=== PATIENT | male | born 1950 | race Caucasian/White ===

== ENCOUNTER 2020-10-27 06:32 | Observation (INO) ==
--- NOTE | 2020-10-27 07:10 | Emergency Department Note ---
History of Present Illness General Chief complaint: Dizziness Stated complaint: LIGHTHEADED,DIZZY, Time Seen by Provider: 10/27/20 06:44 Source: patient History of Present Illness Provider complaint: Dizziness Onset (ago): hour(s) Location: head Pain Consistency: + constant and + other (Improving) Maximum Pain Intensity: 4 Quality: + other (Feels like the room is spinning and occultly walking) Relieved By: + none Associated symptoms: no chest pain, no cough, no fever/chills, no headaches, no nausea/vomiting and no shortness of breath This is a 70-year-old male who presents with dizziness upon awakening this morning at 6 AM. The patient states that he had no symptoms last night when he went to bed. He describes his dizziness as initially lightheadedness but also feeling like the room is spinning. He also states he has had difficulty walking and feels off balance. He feels like he is drunk and did not drink any alcohol. He does state that he is on hydrocodone for pain after his nerve stimulator implantation. He does use THC but has been on it for months for chronic pain. No modifying factors. No associated headache or vomiting. He denies any difficulty with speech or swallowing or any sudden change in his vision or hearing. He has had no tinnitus. He denies fever, cough or cold symptoms, chest discomfort or pain, shortness of breath, abdominal pain, vomiting, diarrhea or urinary symptoms. He denies any numbness or weakness to one side of his body. 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 Home Medications Medication Instructions Recorded Confirmed Type levothyroxine [Synthroid] 200 mcg PO DAILYBB 01/10/18 10/27/20 History lisinopril 20 mg PO QAM 01/10/18 10/27/20 History duloxetine [Cymbalta] See Rx Instructions .ROUTE .COMPLEX 04/16/18 10/27/20 History propranolol 80 mg capsule,24 80 mg PO QAM 07/18/19 10/27/20 History hr,extended release HEEL LIFTS See Rx Instructions .ROUTE 05/07/20 10/22/20 Rx .COMPLEX #3 ea anastrozole [Arimidex] 1 mg PO HS 10/02/20 10/27/20 History rosuvastatin 40 mg PO QAM 10/02/20 10/27/20 History Eliquis 5 mg PO BID 10/22/20 10/27/20 History hydrocodone 5 mg-acetaminophen 325 1 tab PO Q6H #10 tab 10/22/20 10/27/20 Rx mg tablet Grassroots Thc 10mg Tablets 10 mg PO UD 10/27/20 10/27/20 History baclofen 10 mg PO TID 10/27/20 10/27/20 History ciclopirox 1 applic TOPICAL Q2D 10/27/20 10/27/20 History ibuprofen 200 mg PO Q6H PRN 10/27/20 10/27/20 History lorazepam 0.5 mg PO BID PRN 10/27/20 10/27/20 History Allergies Allergy/AdvReac Type Severity Reaction Status Date / Time Cephalosporins Allergy Rash Verified 10/27/20 07:53 levofloxacin Allergy Rash Verified 10/27/20 07:53 Past Med/Surg History Medical History Anxiety Asthma No symptoms x 15 years - well controlled- no inhalers needed Atrial fibrillation dx 2 years ago; on eliquis; follows with Dr. Gutierres Cancer Skin ca - s/p removal Chronic back pain Per PCP records= leg length discrepancy is a contributing factor (heel lift therapy) and somatic dysfunction (OMT done 10/02/20 at PCP office) Degenerative disc disease, lumbar Depression Essential tremor In hands -reason for propranolol Hyperlipidemia Hypertension Hypothyroidism Lumbar radiculopathy Malignant neoplasm of prostate s/p radical prostatectomy 2009 - no chemo or XRT On anticoagulant therapy Osteoarthritis Sacroiliitis Sleep apnea CPAP Surgical History Fusion of spine C4-C7 - limited ROM side to side and with extension History of appendectomy History of cataract surgery History of herniorrhaphy History of penile implant History of prostatectomy History of toe surgery BL great toe S/P insertion of spinal cord stimulator trial; removed Family History Father Prostate cancer Brother Prostate cancer Diabetes Other No family history of adverse response to anesthesia Denies family history of Ovarian cancer Myocardial infarction Breast cancer Colorectal cancer Social History Smoking Status: Never smoker Tobacco Type: Cigarettes Age Started Using Tobacco: 10; Age Quit Using Tobacco: 33; packs per day: 1; Second Hand Exposure: No; Hx Alcohol Use: No (Stopped two months ago - was drinking wine daily ) Hx Substance Use: No Preferred Language: Liberian Communication Ability: Effective Visual Impairment: No Limitations Hearing Ability: Normal Panel Builder Required: No Beliefs That Will Affect Care: Protestant Protestant Beliefs: Jain marital status: Current Living Situation: Spouse current occupational status: retired Other Information That Helps Us Care for You: No Feels Safe at Home: Yes Safety Concerns: Feels Safe At This Time Childhood Exposure to Second-Hand Smoke: Yes Dental Care, Regularly: Yes Physical Activity Frequency: 3-4 Times per Week Seatbelt Use: always Sunscreen Use: Yes Assistive Devices: CPAP and Glasses Review of Systems See HPI for pertinent positives & negatives. and A total of 10 systems reviewed and were otherwise negative Physical Exam Vital Signs Vital Signs - 24 hr 10/27/20 06:36 10/27/20 07:20 10/27/20 07:30 Temperature 36 C L Temperature Source Temporal Artery Scan Pulse Rate 66 67 66 Respiratory Rate 18 23 20 Respiratory Effort / Characteristics Non-Labored Spontaneous Respiratory Depth Normal Blood Pressure 148/93 H 144/89 H 133/85 Blood Pressure Mean 111 107 101 Pulse Oximetry 98 96 95 Oxygen Delivery Method Room Air Sepsis Recent Fever Within 48 Hours No Sepsis New/Unexplained Change in Mental Status N/A Sepsis Action Taken by Nursing No Action Required 10/27/20 08:00 10/27/20 08:31 10/27/20 09:00 Temperature Temperature Source Pulse Rate 65 63 64 Respiratory Rate 23 18 18 Respiratory Effort / Characteristics Respiratory Depth Blood Pressure 135/88 149/91 H 141/89 H Blood Pressure Mean 103 110 106 Pulse Oximetry 98 97 98 Oxygen Delivery Method Sepsis Recent Fever Within 48 Hours Sepsis New/Unexplained Change in Mental Status Sepsis Action Taken by Nursing 10/27/20 09:30 10/27/20 10:00 10/27/20 10:30 Temperature Temperature Source Pulse Rate 64 60 63 Respiratory Rate 17 15 18 Respiratory Effort / Characteristics Respiratory Depth Blood Pressure 144/86 H 133/83 147/97 H Blood Pressure Mean 105 99 113 Pulse Oximetry 97 96 99 Oxygen Delivery Method Sepsis Recent Fever Within 48 Hours Sepsis New/Unexplained Change in Mental Status Sepsis Action Taken by Nursing Constitutional: Vital signs reviewed. Eyes: Pupils are equal round reactive to light. Conjunctiva are noninjected. ENT: Pharynx is clear without erythema or exudate. Mucous membranes are moist. Neck supple without meningeal signs. Respiratory: Clear to auscultation bilaterally. Breath sounds are equal bilaterally. Cardiovascular: Regular rate and rhythm. No rubs or gallops. GI: Soft, nondistended and nontender. Bowel sounds are present. Musculoskeletal: No peripheral edema. No lower extremity tenderness. Integumentary: No cyanosis. or jaundice. Neurologic: The patient is awake and alert. Cranial nerves II-XII are intact. Motor is 5 out of 5 all extremities. Sensation is intact to light touch all extremities. Normal speech. No pronator drift. No limb ataxia. No dysdiadochokinesis Psychiatric: Normal affect. Not anxious appearing. Course Administered Medications Apixaban (Apixaban 5 Mg Tablet) 5 mg PO BID [facility] Stop: 11/26/20 11:33 Last Admin: 10/27/20 12:26 Dose: Not Given Documented by: [id number] Duloxetine HCl (Duloxetine Hcl 30 Mg Cap) [facility] Stop: 11/26/20 11:33 Last Admin: 10/27/20 12:26 Dose: Not Given Documented by: [id number] Rosuvastatin Calcium (Rosuvastatin Calcium 20 Mg Tab) 40 mg PO QAM [facility] Stop: 11/26/20 11:33 Last Admin: 10/27/20 12:26 Dose: Not Given Documented by: [id number] Discontinued Medications Ioversol (Optiray 350 500ml) 117 ml IV ONCE ONE Stop: 10/27/20 07:19 Last Admin: 10/27/20 07:18 Dose: 117 ml Documented by: [id number] Medical Decision Making Differential Diagnosis Ataxia, CVA, TIA, intracranial mass, intracranial hemorrhage, BPPV, labyrinthitis Medical Records Attestation: I reviewed the patient's medical records. I did perform a limited focused review of portions of the patient's old chart on the electronic medical record. The patient had a nerve stimulator implanted on the eighth of this month. Home Medications Current Medication List: was personally reviewed by me Laboratory Data Attestation: I reviewed the patient's lab results. Result diagrams: 10/27/20 07:05 10/27/20 07:05 Lab Results 06/10/27/20 10/27/20 Range/Units 07:05 07:05 07:05 WBC 5.42 (4.8-10.8) K/uL RBC 4.80 (4.7-6.1) M/uL Hgb 14.9 (14.0-18.0) g/dL Hct 43.0 (42-52) % MCV 89.6 (80-100) fL MCH 31.0 (25-34) pg MCHC 34.7 (32-36) g/dL RDW Std Deviation 40.6 (36.4-46.3) fL RDW Coeff of Edi 12.4 (11.5-14.5) % Plt Count 147 (130-400) K/uL MPV 9.6 (7.4-10.4) fL Immature Gran % (Auto) 0.2 % Neut % (Auto) 62.9 % Lymph % (Auto) 20.1 % Lanier % (Auto) 9.8 % Eos % (Auto) 6.3 % Baso % (Auto) 0.7 % Neut # (Auto) 3.41 (1.4-6.5) K/uL Lymph # (Auto) 1.09 L (1.2-3.4) K/uL Lanier # (Auto) 0.53 (0.11-0.59) K/uL Eos # (Auto) 0.34 (0-0.5) K/uL Baso # (Auto) 0.04 (0-0.2) K/uL Immature Gran # (Auto) 0.01 (0.00-0.02) K/uL PT 10.3 (9.0-12.0) Seconds INR 1.0 (0.9-1.1) APTT 28.7 (21.0-31.0) Seconds PTT Ratio 1.1 Sodium (136-145) mmol/L Potassium (3.5-5.1) mmol/L Chloride (98-107) mmol/L Carbon Dioxide (21-32) mmol/L Anion Gap (3-11) BUN (7-18) mg/dl Creatinine (0.6-1.4) mg/dl Est Cr Clr Drug Dosing ml/min Est GFR ( Amer) ml/min Est GFR (Non-Af Amer) ml/min BUN/Creatinine Ratio (10-20) Glucose (70-99) mg/dl POC Glucose (70-99) mg/dl Calcium (8.5-10.1) mg/dl Magnesium (1.8-2.4) mg/dl Total Bilirubin (0.2-1) mg/dl AST (15-37) U/L ALT (12-78) U/L Alkaline Phosphatase (45-117) U/L Troponin I (0-0.045) ng/ml Total Protein (6.4-8.2) gm/dl Albumin (3.4-5.0) gm/dl Globulin (2.5-4.0) gm/dl Albumin/Globulin Ratio (0.9-2) COVID-19 Eval Order SARS-CoV-2 (PCR) (Negative) Blood Type A Negative Antibody Screen NEGATIVE 10/27/20 10/27/20 10/27/20 Range/Units 07:05 07:18 07:34 WBC (4.8-10.8) K/uL RBC (4.7-6.1) M/uL Hgb (14.0-18.0) g/dL Hct (42-52) % MCV (80-100) fL MCH (25-34) pg MCHC (32-36) g/dL RDW Std Deviation (36.4-46.3) fL RDW Coeff of Edi (11.5-14.5) % Plt Count (130-400) K/uL MPV (7.4-10.4) fL Immature Gran % (Auto) % Neut % (Auto) % Lymph % (Auto) % Lanier % (Auto) % Eos % (Auto) % Baso % (Auto) % Neut # (Auto) (1.4-6.5) K/uL Lymph # (Auto) (1.2-3.4) K/uL Lanier # (Auto) (0.11-0.59) K/uL Eos # (Auto) (0-0.5) K/uL Baso # (Auto) (0-0.2) K/uL Immature Gran # (Auto) (0.00-0.02) K/uL PT (9.0-12.0) Seconds INR (0.9-1.1) APTT (21.0-31.0) Seconds PTT Ratio Sodium 140 (136-145) mmol/L Potassium 4.2 (3.5-5.1) mmol/L Chloride 109 H (98-107) mmol/L Carbon Dioxide 25 (21-32) mmol/L Anion Gap 6.0 (3-11) BUN 21 H (7-18) mg/dl Creatinine 1.02 (0.6-1.4) mg/dl Est Cr Clr Drug Dosing 84.9 ml/min Est GFR ( Amer) 84.7 ml/min Est GFR (Non-Af Amer) 73.1 ml/min BUN/Creatinine Ratio 20.6 H (10-20) Glucose 137 H (70-99) mg/dl POC Glucose 127 H (70-99) mg/dl Calcium 9.1 (8.5-10.1) mg/dl Magnesium 2.3 (1.8-2.4) mg/dl Total Bilirubin 0.4 (0.2-1) mg/dl AST 16 (15-37) U/L ALT 31 (12-78) U/L Alkaline Phosphatase 71 (45-117) U/L Troponin I < 0.015 (0-0.045) ng/ml Total Protein 6.7 (6.4-8.2) gm/dl Albumin 3.4 (3.4-5.0) gm/dl Globulin 3.3 (2.5-4.0) gm/dl Albumin/Globulin Ratio 1.0 (0.9-2) COVID-19 Eval Order Covid19 at [facility] SARS-CoV-2 (PCR) (Negative) Blood Type Antibody Screen 10/27/20 Range/Units 07:34 WBC (4.8-10.8) K/uL RBC (4.7-6.1) M/uL Hgb (14.0-18.0) g/dL Hct (42-52) % MCV (80-100) fL MCH (25-34) pg MCHC (32-36) g/dL RDW Std Deviation (36.4-46.3) fL RDW Coeff of Edi (11.5-14.5) % Plt Count (130-400) K/uL MPV (7.4-10.4) fL Immature Gran % (Auto) % Neut % (Auto) % Lymph % (Auto) % Lanier % (Auto) % Eos % (Auto) % Baso % (Auto) % Neut # (Auto) (1.4-6.5) K/uL Lymph # (Auto) (1.2-3.4) K/uL Lanier # (Auto) (0.11-0.59) K/uL Eos # (Auto) (0-0.5) K/uL Baso # (Auto) (0-0.2) K/uL Immature Gran # (Auto) (0.00-0.02) K/uL PT (9.0-12.0) Seconds INR (0.9-1.1) APTT (21.0-31.0) Seconds PTT Ratio Sodium (136-145) mmol/L Potassium (3.5-5.1) mmol/L Chloride (98-107) mmol/L Carbon Dioxide (21-32) mmol/L Anion Gap (3-11) BUN (7-18) mg/dl Creatinine (0.6-1.4) mg/dl Est Cr Clr Drug Dosing ml/min Est GFR ( Amer) ml/min Est GFR (Non-Af Amer) ml/min BUN/Creatinine Ratio (10-20) Glucose (70-99) mg/dl POC Glucose (70-99) mg/dl Calcium (8.5-10.1) mg/dl Magnesium (1.8-2.4) mg/dl Total Bilirubin (0.2-1) mg/dl AST (15-37) U/L ALT (12-78) U/L Alkaline Phosphatase (45-117) U/L Troponin I (0-0.045) ng/ml Total Protein (6.4-8.2) gm/dl Albumin (3.4-5.0) gm/dl Globulin (2.5-4.0) gm/dl Albumin/Globulin Ratio (0.9-2) COVID-19 Eval Order SARS-CoV-2 (PCR) NEGATIVE (Negative) Blood Type Antibody Screen Imaging Data Radiologist's Impression: Chest X-Ray 10/27/20 06:59 XR chest 1V portable CLINICAL HISTORY: Stroke Like Symptoms COMPARISON STUDY: Chest radiograph April 15, 2018. FINDINGS: Lung volumes are normal. Intrathecal catheter is noted. Postoperative findings within the cervical spine are incidentally noted. Cardiomegaly is unch anged. There is no evidence for pulmonary edema. There is pulmonary vascular congestion. This is unchanged. Mild bibasilar opacities favor atelectasis. IMPRESSION: 1. No change in cardiomegaly with pulmonary vascular congestion. 1. Mild bibasilar opacities which favor atelectasis. ACT 112: Negative or not required by law. Electronically signed by: Venkata Gilliam M.D. 10/27/2020 7:[address] 10/27/20 06:59 CT head/brain wo con CLINICAL HISTORY: vertigo/ataxia eval for stroke COMPARISON STUDY: No previous studies for comparison. TECHNIQUE: Axial CT of the brain is performed from the vertex to the skull base. IV contrast was not administered for this examination. A dose lowering technique was utilized adhering to the principles of ALARA. CT DOSE: 687.98 mGy.cm FINDINGS: No intra or extra-axial mass lesions are visualized. There is no CT evidence of acute cortical infarction. There is no evidence of midline shift. There is no acute hemorrhage. No calvarial fractures are visualized. There are mild white matter hypodensities likely on a small vessel basis. There is no evidence of pathologic ventricular dilatation. There is no evidence of acute sinusitis IMPRESSION: No acute intracranial findings ACT 112: Negative or not required by law. Electronically signed by: Matti Franklin M.D. 10/27/2020 7:15 AM Head CTA 10/27/20 06:59 CTA ANGIOGRAPHY OF THE HEAD CLINICAL HISTORY: Stroke Like Symptoms COMPARISON STUDY: No previous studies for comparison. TECHNIQUE: Helical axial images of the head were obtained following uneventful intravenous administration of 117 cc of Optiray. Sagittal and coronal reconstructions were viewed as well as maximal intensity projections on an independent 3-D workstation. Automated exposure control was utilized for the enid. A dose lowering technique was utilized adhering to the principles of ALARA. FINDINGS: No acute intracranial hemorrhage, midline shift or mass effect is present. Ventricular system is unremarkable. Basal cisterns are patent. There are no extra axial collections. The bilateral M1, M2, A1 and A2 segments are patent. There is mild asymmetric narrowing of the right middle cerebral artery. No central vessel occlusion is identified. Posterior circulation is intact. The re is no intracranial aneurysm or dissection. IMPRESSION: 1. No intracranial aneurysm. No central vessel occlusion. 2. Mild stenosis of the right middle cerebral artery. ACT 112: Negative or not required by law. Electronically signed by: Venkata Gilliam M.D. 10/27/2020 7:28 AM Neck CTA 10/27/20 06:59 CT ANGIOGRAPHY OF THE NECK WITH CONTRAST CLINICAL HISTORY: Stroke Like Symptoms COMPARISON STUDY: No previous studies for comparison. Technique: CT angiography of the carotid and vertebral arteries was obtained using Optiray and 3D reconstruction on an independent workstation. NASCET criteria was utilized. Automated exposure control was utilized for the study. A dose lowering technique was utilized adhering to the principles of ALARA. CT DOSE: 721.87 mGy.cm Findings: Lung apices are clear. There is no cervical lymphadenopathy. Extensive postoperative findings within the cervical spine are noted. There is no acute cervical spine fracture. The bilateral common carotid and cervical internal carotid arteries are patent without stenosis. There is mild plaque within the left carotid bifurcation. There is suspected stenosis at the origin the bilateral vertebral arteries which is suboptimally assessed on this examination due to artifact. There is no dissection within the neck. The origins of the bilateral vertebral IMPRESSION: 1. No stenosis within the bilateral common carotid or cervical internal carotid arteries. 2. Suspected stenoses at the origins of the bilateral vertebral arteries which are suboptimally assessed on this exam due to artifact. No dissection. ACT 112: Negative or not required by law. Electronically signed by: Venkata Gilliam M.D. 10/27/2020 7:35 AM ECG Data Attestation: I personally reviewed and interpreted this ECG as follows: Indication: + other (Strokelike symptoms) Rate (beats per minute): 64 Rhythm: + normal sinus ECG Findings: + Other (Limited interpretation due to artifact from nerve stimulator); no PVCs MDM Narrative I did evaluate the patient as noted above. The patient is presenting with ataxia and vertigo starting this morning at 6 AM. He has no other symptoms. He is neurologically intact although he does have ataxia when trying to walk. He is not an IV TPA candidate as he woke up with the symptoms at 6 AM. His last known well was last night. I did call a stroke alert. IV access was established. I did order a CT of the head and CT angiogram of the head neck. I did review the images myself as well as the radiology report as described above. There is no evidence of acute stroke. He does have suspected stenosis of the origins of the bilateral vertebral arteries. There is also mild stenosis of the right middle cerebral artery. I did place an order for continuous cardiac monitoring. The monitor showed Normal sinus rhythm at a rate of 63 bpm. I did order and personally review the patient's 12-lead EKG as described above. He has no obvious ischemic changes but there is significant artifact from his neurostimulator. The patient does not have his remote with him and so we could not turn off the stimulator. I did order and personally reviewed the images of the patient's chest x-ray as described above. He has mild bibasilar opacities favoring atelectasis. He denies any cough or cold symptoms. I did order and review the patient's blood work as noted in the electronic medical record. CBC is unremarkable. Electrolytes, troponin and LFTs are unremarkable. I did reassess patient. He states he feels better but still has dizziness and disequilibrium. I did recommend hospitalization for MRI of the brain and further care and evaluation. I did discuss the case with the hospitalist and keycase assembler. The screening Covid test is negative. Impression & Plan Acute ataxia, Vertigo, Vertebral artery stenosis, Anticoagulated Discharge Plan Visit Data Chief Complaint: Dizziness Stated Complaint: LIGHTHEADED,DIZZY, ED Provider: Benji Barrett Discharge Problem: Acute ataxia, Vertigo, Vertebral artery stenosis, Anticoagulated Patient Disposition: Admitted As Inpatient Discharge Instructions Interventions: ED Discharge Assessment Last Done: 10/27/20 11:03 Discharge Problem: Vertebral artery stenosis Qualifiers: Laterality: bilateral Qualified Code(s): I65.03 - Occlusion and stenosis of bilateral vertebral arteries
--- NOTE | 2020-10-27 07:16 | CT Scan Report ---
CT head/brain wo con CLINICAL HISTORY: vertigo/ataxia eval for stroke COMPARISON STUDY: No previous studies for comparison. TECHNIQUE: Axial CT of the brain is performed from the vertex to the skull base. IV contrast was not administered for this examination. A dose lowering technique was utilized adhering to the principles of ALARA. CT DOSE: 687.98 mGy.cm FINDINGS: No intra or extra-axial mass lesions are visualized. There is no CT evidence of acute cortical infarc tion. There is no evidence of midline shift. There is no acute hemorrhage. No calvarial fractures ar e visualized. There are mild white matter hypodensities likely on a small vessel basis. There is no evidence of pathologic ventricular dilatation. There is no evidence of acute sinusitis IMPRESSION: No acute intracranial findings ACT 112: Negative or not required by law. Electronically signed by: Matti Franklin M.D. 10/27/2020 7:15 AM
[2020-10-27 07:18] LABS: Basophils # (auto) 0.04 K/uL (0-0.2); Basophils % (auto) 0.7 %; Eosinophils # (auto) 0.34 K/uL (0-0.5); Eosinophils % (auto) 6.3 %; Hemoglobin 14.9 g/dL (14.0-18.0); Immature Granulocytes # (auto) 0.01 K/uL (0.00-0.02); Immature Granulocytes % (auto) 0.2 %; Lymphocytes # (auto) 1.09 K/uL (1.2-3.4); Lymphocytes % (auto) 20.1 %; Mean Corpuscular Hgb Conc 34.7 g/dL (32-36); Mean Corpuscular Volume 89.6 fL (80-100); Mean Platelet Volume 9.6 fL (7.4-10.4); Monocytes # (auto) 0.53 K/uL (0.11-0.59); Monocytes % (auto) 9.8 %; Neutrophils # (auto) 3.41 K/uL (1.4-6.5); Neutrophils % (auto) 62.9 %; Platelet Count 147 K/uL (130-400); RDW Coefficient of Variation 12.4 % (11.5-14.5); RDW Standard Deviation 40.6 fL (36.4-46.3); White Blood Count 5.42 K/uL (4.8-10.8)
[2020-10-27] MEDS ORDERED: OPTIRAY 350 500ml IV ONE (07:18)
--- NOTE | 2020-10-27 07:29 | CT Scan Report ---
CTA ANGIOGRAPHY OF THE HEAD CLINICAL HISTORY: Stroke Like Symptoms COMPARISON STUDY: No previous studies for comparison. TECHNIQUE: Helical axial images of the head were obtained following uneventful intravenous administr ation of 117 cc of Optiray. Sagittal and coronal reconstructions were viewed as well as maximal inten sity projections on an independent 3-D workstation. Automated exposure control was utilized for the study. A dose lowering technique was utilized adhering to the principles of ALARA. FINDINGS: No acute intracranial hemorrhage, midline shift or mass effect is present. Ventricular syst em is unremarkable. Basal cisterns are patent. There are no extra axial collections. The bilateral M1 , M2, A1 and A2 segments are patent. There is mild asymmetric narrowing of the right middle cerebral artery. No central vessel occlusion is identified. Posterior circulation is intact. There is no intra cranial aneurysm or dissection. IMPRESSION: 1. No intracranial aneurysm. No central vessel occlusion. 2. Mild stenosis of the right middle cerebral artery. ACT 112: Negative or not required by law. Electronically signed by: Venkata Gilliam M.D. 10/27/2020 7:28 AM
[2020-10-27 07:34] LABS: Alanine Aminotransferase 31 U/L (12-78); Albumin Level 3.4 gm/dl (3.4-5.0); Aspartate Aminotransferase 16 U/L (15-37); BUN Creatinine Ratio 20.6 (10-20); Blood Urea Nitrogen 21 mg/dl (7-18); Calcium 9.1 mg/dl (8.5-10.1); Carbon Dioxide 25 mmol/L (21-32); Chloride 109 mmol/L (98-107); Creatinine Clr Calc Pharmacy 84.9 ml/min; Est GFR (African American) 84.7 ml/min; Est GFR (Non-African American) 73.1 ml/min; Glucose 137 mg/dl (70-99); Magnesium 2.3 mg/dl (1.8-2.4); Potassium 4.2 mmol/L (3.5-5.1); Sodium 140 mmol/L (136-145)
--- NOTE | 2020-10-27 07:37 | CT Scan Report ---
CT ANGIOGRAPHY OF THE NECK WITH CONTRAST CLINICAL HISTORY: Stroke Like Symptoms COMPARISON STUDY: No previous studies for comparison. Technique: CT angiography of the carotid and vertebral arteries was obtained using Optiray and 3D rec onstruction on an independent workstation. NASCET criteria was utilized. Automated exposure control was utilized for the study. A dose lowering technique was utilized adhering to the principles of ALA RA. CT DOSE: 721.87 mGy.cm Findings: Lung apices are clear. There is no cervical lymphadenopathy. Extensive postoperative findin gs within the cervical spine are noted. There is no acute cervical spine fracture. The bilateral comm on carotid and cervical internal carotid arteries are patent without stenosis. There is mild plaque w ithin the left carotid bifurcation. There is suspected stenosis at the origin the bilateral vertebral arteries which is suboptimally assessed on this examination due to artifact. There is no dissection within the neck. The origins of the bilateral vertebral IMPRESSION: 1. No stenosis within the bilateral common carotid or cervical internal carotid arteries. 2. Suspected stenoses at the origins of the bilateral vertebral arteries which are suboptimally asses sed on this exam due to artifact. No dissection. ACT 112: Negative or not required by law. Electronically signed by: Venkata Gilliam M.D. 10/27/2020 7:35 AM
[2020-10-27 07:39] LABS: Alkaline Phosphatase 71 U/L (45-117); Bilirubin,Total 0.4 mg/dl (0.2-1); Globulin 3.3 gm/dl (2.5-4.0); Total Protein 6.7 gm/dl (6.4-8.2); Troponin I < 0.015 ng/ml (0-0.045)
[2020-10-27 07:46] LABS: Partial Thromboplastin Ratio 1.1; Partial Thromboplastin Time 28.7 Seconds (21.0-31.0); Prothrombin Time 10.3 Seconds (9.0-12.0)
--- NOTE | 2020-10-27 07:58 | XRay Report ---
XR chest 1V portable CLINICAL HISTORY: Stroke Like Symptoms COMPARISON STUDY: Chest radiograph April 15, 2018. FINDINGS: Lung volumes are normal. Intrathecal catheter is noted. Postoperative findings within the c ervical spine are incidentally noted. Cardiomegaly is unchanged. There is no evidence for pulmonary e licha. There is pulmonary vascular congestion. This is unchanged. Mild bibasilar opacities favor atele ctasis. IMPRESSION: 1. No change in cardiomegaly with pulmonary vascular congestion. 1. Mild bibasilar opacities which favor atelectasis. ACT 112: Negative or not required by law. Electronically signed by: Venkata Gilliam M.D. 10/27/2020 7:57 AM
--- NOTE | 2020-10-27 09:09 | History & Physical Report ---
Date of Service October 27, 2020 Assessment & Plan (1) CVA (cerebral vascular accident): CVA vs TIA vs. BPPV/neuritis - NIHSS 2, ABCD2- 3 - Patient with presentation that appears as spontaneous episodic vestibular symptoms - Lasted about 2 hours, may have been triggered this morning with standing, but unable to reproduce in the EMD. - NIHSS-2 with mild dysarthria and continued dizziness - No nystagmus, no visual skew, no saccade in previously vertiginousness patient- MRI pending- With his nerve stimulator awaiting on safety of being able to perform - CTA of head and neck as previous- mild stenosis - continue Eliquis, statin, neurology consult (+)/(-) aspirin - Allow permissive HTN for now - Q2 hour neurological exams - Hold Narcotic- pain currently controlled, continue with ibuprofen - PT/OT consult - ECHO pending (2) HLD (hyperlipidemia): Lipids in the morning - Continue high dose statin rosuvastatin 40 mg Qd (3) Hypertension: Hold RADHA and Propranolol for now - Restart when appropriate - permissive HTN for today (4) Atrial fibrillation: Currently in NSR- originally diagnosed in 2018 - is not on any rate or rythm controlling agent - remains on Eliquis for this - Has not had further documented episodes of such. 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 - Recently placed nerve stimulator - Medtronic Octrode- assess ability to perform MRI with device - Continue with PT/OT in house - Continue with Tylenol/Ibuprofen for pain (6) Lumbar facet joint syndrome: As above (7) Spinal stenosis: As above (8) Arthritis: As above (9) Prostate CA: with prstatectomy - Continue with arimidex - Mild incontinence reported (10) Essential tremor: (11) Hypogonadism: Check TSH in morning - On AndroGel 2 pumps daily- he uses once every other day - Non-formulary, may bring from home and use if needed By CMS guidelines, a determination that the admission or continued stay is not medically necessary has been made by a member of the UR committee and a physician for this hospital stay, therefore a Code 44 will be completed and the Inpatient admission will be changed to outpatient. History of Present Illness Primary Care Provider: He Ghosh 70 YOM with past medical history of: chronic back pain, lumbar herniation, fusion with hardware to cervical spine, recently placed spinal stimulator, OA, leg length discrepancy, HLD, HTN, Afib (on Eliquis), hypothyroidism, hypogonadism, prostatectomy 2009, DIANA on CPAP, Depression. Patient comes in to the ED, brought in by his daughter for dizziness, feeling "fuzzy", balance p roblems, and feeling like the room was spinning. This was associated with ringing in the ears but no hearing loss. The ringing in his ears dissipated about 1 hour ago. The room spinning stopped about 830. He still continues to feel dizzy/fuzzy and delayed speech. He feels his speech is difficult to get out secondary to his tongue feeling "funny". The patient recently had a nerve stimulator placed in about 8 days ago, and re-started his Eliquis the day after his procedure. He took his medications this morning. New medications were hydrocodone/acetaminophen prescribed after his stimulator placement. He has been using this but has not associated these symptoms with this medicine prior. The dizziness, ringing in the ears and balance started this morning around 0630 when patient awoke. Associated with room spinning and feeling of motion and unable to feel like he could get his balance. The room spinning and motion went away following him sitting down. The ringing in the ears and dizziness persisted until recently. He had no reproducible vertigo or alterations in sensorium in the EMD with movement or turning to side or standing to ambulate. No hearing loss reported or on exam. There was no nystagmus or lagging of eyes on exam. There were no other associated weakness, mild overshoot with finger to nose on left. Mild dysarthria. NIHSS-2. Not a tPA candidate secondary to NIHSS and on Eliquis. CTA of the head and neck were performed revealing suspected stenosis of the bilateral vertebral arteries(suboptimal due to artifact from cervical hardware), and mild stenosis of the right middle cerebral artery. Patient will be admitted to telemetry to continue neurological assessment and stroke work-up. Allergies Allergy/AdvReac Type Severity Reaction Status Date / Time Cephalosporins Allergy Rash Verified 10/27/20 07:53 levofloxacin Allergy Rash Verified 10/27/20 07:53 Home Medications Medication Instructions Recorded Confirmed Type levothyroxine [Synthroid] 200 mcg PO DAILYBB 01/10/18 10/27/20 History lisinopril 20 mg PO QAM 01/10/18 10/27/20 History duloxetine [Cymbalta] See Rx Instructions .ROUTE .COMPLEX 04/16/18 10/27/20 History propranolol 80 mg capsule,24 80 mg PO QAM 07/18/19 10/27/20 History hr,extended release HEEL LIFTS See Rx Instructions .ROUTE 05/07/20 10/22/20 Rx .COMPLEX #3 ea anastrozole [Arimidex] 1 mg PO HS 10/02/20 10/27/20 History rosuvastatin 40 mg PO QAM 10/02/20 10/27/20 History Eliquis 5 mg PO BID 10/22/20 10/27/20 History hydrocodone 5 mg-acetaminophen 325 1 tab PO Q6H #10 tab 10/22/20 10/27/20 Rx mg tablet Grassroots Thc 10mg Tablets 10 mg PO UD 10/27/20 10/27/20 History baclofen 10 mg PO TID 10/27/20 10/27/20 History ciclopirox 1 applic TOPICAL Q2D 10/27/20 10/27/20 History ibuprofen 200 mg PO Q6H PRN 10/27/20 10/27/20 History lorazepam 0.5 mg PO BID PRN 10/27/20 10/27/20 History Past Med/Surg History Medical History Anxiety Asthma No symptoms x 15 years - well controlled- no inhalers needed Atrial fibrillation dx 2 years ago; on eliquis; follows with Dr. Gutierres Cancer Skin ca - s/p removal Chronic back pain Per PCP records= leg length discrepancy is a contributing factor (heel lift therapy) and somatic dysfunction (OMT done 10/02/20 at PCP office) Degenerative disc disease, lumbar Depression Essential tremor In hands -reason for propranolol Hyperlipidemia Hypertension Hypothyroidism Lumbar radiculopathy Malignant neoplasm of prostate s/p radical prostatectomy 2009 - no chemo or XRT On anticoagulant therapy Osteoarthritis Sacroiliitis Sleep apnea CPAP Surgical History Fusion of spine C4-C7 - limited ROM side to side and with extension History of appendectomy History of cataract surgery History of herniorrhaphy History of penile implant History of prostatectomy History of toe surgery BL great toe S/P insertion of spinal cord stimulator trial; removed Family History Father Prostate cancer Brother Prostate cancer Diabetes Other No family history of adverse response to anesthesia Denies family history of Ovarian cancer Myocardial infarction Breast cancer Colorectal cancer Social History Smoking Status: Never smoker Tobacco Type: Cigarettes Age Started Using Tobacco: 10; Age Quit Using Tobacco: 33; packs per day: 1; Second Hand Exposure: No; Hx Alcohol Use: No (Stopped two months ago - was drinking wine daily ) Hx Substance Use: No Preferred Language: [place] Communication Ability: Effective Visual Impairment: No Limitations Hearing Ability: Normal Regulator Tester Required: No Beliefs That Will Affect Care: Roman Catholic Roman Catholic Beliefs: Lutheran marital status: Current Living Situation: Spouse current occupational status: retired Other Information That Helps Us Care for You: No Feels Safe at Home: Yes Safety Concerns: Feels Safe At This Time Childhood Exposure to Second-Hand Smoke: Yes Dental Care, Regularly: Yes Physical Activity Frequency: 3-4 Times per Week Seatbelt Use: always Sunscreen Use: Yes Assistive Devices: CPAP and Glasses Review of Systems Review of Systems: REVIEW OF SYSTEMS: Constitutional: No fever, sweats or chills Eyes: No diplopia, no worsening or blurred vision ENT: (+) tinnitus, normal hearing, no trouble swallowing Respiratory: No cough, sputum, dyspnea at rest or on exertion Cardiovascular: (+) dizziness, No chest pain, tightness or palpitations Abdomen: No pain, nausea, vomiting, diarrhea or constipation Musculoskeletal: (+) joint pain, stiff gait, No calf pain, swelling Neurologic: (+) balance problem, room spinning, dizziness, No weakness, numbness/tingling, Psychiatric: No anxiety or depression Skin: No rash or itch Physical Exam Physical Exam: PHYSICAL EXAM: General: awake, alert, no apparent distress Head: Normocephalic, atraumatic ENT: PERRLA, no nystagmus with left to right gaze, no skew with cover/uncover, and appreciate no saccade, EOMI, no pharyngeal exudate, mucous membranes moist Neuro: AAO x 3, speech mild delay and some slurring, but appropriate, strength intact bilaterally 5/5, sensation intact and equal all extremities and dermatomes, no pronator drift, mild left finger to nose overshoot, no truncal ataxia or leg ataxia. Gait mild stiffness, patient states this is his baseline, heel and toe walk normal for patient. Reji-Halpike difficult with his spinal history so not optimal. Chest: equal rise and fall of the chest, no accessory muscle use, no heaves or thrills, Clear to auscultation, on room air, Cardiac: Regular rate and rhythm, telemetry reviewed NSR, skin warm dry, cap refill <3 seconds, peripheral pulses +2 no JVD, no murmur, no JVD, no edema GI: NABS x 4 quadrants, soft, nontender to palpation, no rebound, guarding or tenderness : Spontaneously voiding, no pain, no CVA tenderness, Extremities: Normal inspection, no peripheral edema or erythema, calfs nontender to palpation Psych: Normal mood and affect Skin: no rash or erythema Results & Data Results & Data ([facility]) Vital Signs (Past 12 Hours) Vital Signs Temp Pulse Resp BP Pulse Ox 10/27/20 08:31 63 18 149/91 H 97 10/27/20 08:00 65 23 135/88 98 10/27/20 07:30 66 20 133/85 95 10/27/20 07:20 67 23 144/89 H 96 10/27/20 06:36 36 C L 66 18 148/93 H 98 Laboratory Results Abnormal lab results 10/27/20 10/27/20 10/27/20 Range/Units 07:05 07:05 07:18 Lymph # (Auto) 1.09 L (1.2-3.4) K/uL Chloride 109 H (98-107) mmol/L BUN 21 H (7-18) mg/dl BUN/Creatinine Ratio 20.6 H (10-20) Glucose 137 H (70-99) mg/dl POC Glucose 127 H (70-99) mg/dl Diagnostic Findings Chest X-Ray 10/27/20 06:59 XR chest 1V portable CLINICAL HISTORY: Stroke Like Symptoms COMPARISON STUDY: Chest radiograph April 15, 2018. FINDINGS: Lung volumes are normal. Intrathecal catheter is noted. Postoperative findings within the cervical spine are incidentally noted. Cardiomegaly is unchanged. There is no evidence for pulmonary edema. There is pulmonary vascular congestion. This is unchanged. Mild bibasilar opacities favor atelectasis. IMPRESSION: 1. No change in cardiomegaly with pulmonary vascular congestion. 1. Mild bibasilar opacities which favor atelectasis. ACT 112: Negative or not required by law. Electronically signed by: Venkata Gilliam M.D. 10/27/2020 7:[address] 10/27/20 06:59 CT head/brain wo con CLINICAL HISTORY: vertigo/ataxia eval for stroke COMPARISON STUDY: No previous studies for comparison. TECHNIQUE: Axial CT of the brain is performed from the vertex to the skull base. IV contrast was not administered for this examination. A dose lowering technique was utilized adhering to the principles of ALARA. CT DOSE: 687.98 mGy.cm FINDINGS: No intra or extra-axial mass lesions are visualized. There is no CT evidence of acute cortical infarction. There is no evidence of midline shift. There is no acute hemorrhage. No calvarial fractures are visualized. There are mild white matter hypodensities likely on a small vessel basis. There is no evidence of pathologic ventricular dilatation. There is no evidence of acute sinusitis IMPRESSION: No acute intracranial findings ACT 112: Negative or not required by law. Electronically signed by: Matti Franklin M.D. 10/27/2020 7:15 AM Head CTA 10/27/20 06:59 CTA ANGIOGRAPHY OF THE HEAD CLINICAL HISTORY: Stroke Like Symptoms COMPARISON STUDY: No previous studies for comparison. TECHNIQUE: Helical axial images of the head were obtained following uneventful intravenous administration of 117 cc of Optiray. Sagittal and coronal reconstructions were viewed as well as maximal intensity projections on an independent 3-D workstation. Automated exposure control was utilized for the study. A dose lowering technique was utilized adhering to the principles of ALARA. FINDINGS: No acute intracranial hemorrhage, midline shift or mass effect is present. Ventricular system is unremarkable. Basal cisterns are patent. There are no extra axial collections. The bilateral M1, M2, A1 and A2 segments are patent. There is mild asymmetric narrowing of the right middle cerebral artery. No central vessel occlusion is identified. Posterior circulation is intact. There is no intracranial aneurysm or dissection. IMPRESSION: 1. No intracranial aneurysm. No central vessel occlusion. 2. Mild stenosis of the right middle cerebral artery. ACT 112: Negative or not required by law. Electronically signed by: Venkata Gilliam M.D. 10/27/2020 7:28 AM Neck CTA 10/27/20 06:59 CT ANGIOGRAPHY OF THE NECK WITH CONTRAST CLINICAL HISTORY: Stroke Like Symptoms COMPARISON STUDY: No previous studies for comparison. Technique: CT angiography of the carotid and vertebral arteries was obtained using Optiray and 3D reconstruction on an independent workstation. NASCET criteria was utilized. Automated exposure control was utilized for the study. A dose lowering technique was utilized adhering to the principles of ALARA. CT DOSE: 721.87 mGy.cm Findings: Lung apices are clear. There is no cervical lymphadenopathy. Extensive postoperative findings within the cervical spine are noted. There is no acute cervical spine fracture. The bilateral common carotid and cervical internal carotid arteries are patent without stenosis. There is mild plaque within the left carotid bifurcation. There is suspected stenosis at the origin the bilateral vertebral arteries which is suboptimally assessed on this examination due to artifact. There is no dissection within the neck. The origins of the bilateral vertebral IMPRESSION: 1. No stenosis within the bilateral common carotid or cervical internal carotid arteries. 2. Suspected stenoses at the origins of the bilateral vertebral arteries which are suboptimally assessed on this exam due to artifact. No dissection. ACT 112: Negative or not required by law. Electronically signed by: Venkata Gilliam M.D. 10/27/2020 7:35 AM Medications Administered Discontinued Medications Ioversol (Optiray 350 500ml) 117 ml IV ONCE ONE Stop: 10/27/20 07:19 Last Admin: 10/27/20 07:18 Dose: 117 ml Documented by: [id number] Home Medications levothyroxine [Synthroid] 200 mcg PO DAILYBB 01/10/18 [History Confirmed 10/27/20] lisinopril 20 mg PO QAM 01/10/18 [History Confirmed 10/27/20] duloxetine [Cymbalta] See Rx Instructions .ROUTE .COMPLEX 04/16/18 [History Confirmed 10/27/20] propranolol 80 mg capsule,24 hr,extended release 80 mg PO QAM 07/18/19 [History Confirmed 10/27/20] HEEL LIFTS See Rx Instructions .ROUTE .COMPLEX #3 ea 05/07/20 [Rx Confirmed 10/22/20] anastrozole [Arimidex] 1 mg PO HS 10/02/20 [History Confirmed 10/27/20] rosuvastatin 40 mg PO QAM 10/02/20 [History Confirmed 10/27/20] Eliquis 5 mg PO BID 10/22/20 [History Confirmed 10/27/20] hydrocodone 5 mg-acetaminophen 325 mg tablet 1 tab PO Q6H #10 tab 10/22/20 [Rx Confirmed 10/27/20] Grassroots Thc 10mg Tablets 10 mg PO UD 10/27/20 [History Confirmed 10/27/20] baclofen 10 mg PO TID 10/27/20 [History Confirmed 10/27/20] ciclopirox 1 applic TOPICAL Q2D 10/27/20 [History Confirmed 10/27/20] ibuprofen 200 mg PO Q6H PRN 10/27/20 [History Confirmed 10/27/20] lorazepam 0.5 mg PO BID PRN 10/27/20 [History Confirmed 10/27/20] ECG Additional Comments: Poor quality- NSR no dyanmic changes Code Status & VTE Plan Code Status CODE: FULL VTE: SCD's, Eliquis VTE Prophylaxis Plan VTE Prophylaxis will be ordered: Yes PG Care Time/CCT Total # of Minutes Spent Total Time Spent with Patient: Total time spent is greater than 50% in coordination of care (as documented) at patient's floor/unit and/or counseling patient: Coding Level of Care Code 74241 Initial Inpt Care Lvl 3 Diagnoses CVA (cerebral vascular accident) I63.9 CVA mechanism: unspecified HLD (hyperlipidemia) E78.5 Hyperlipidemia type: unspecified Hypertension I10 Hypertension type: essential hypertension Atrial fibrillation I48.0 Atrial fibrillation type: paroxysmal Lumbar disc herniation M51.26 Lumbar facet joint syndrome M47.816 Spinal stenosis M48.062 Neurogenic claudication status: with neurogenic claudication Spinal region: lumbar Arthritis M19.90 Prostate CA C61 Essential tremor G25.0 Hypogonadism (1) Atrial fibrillation Atrial fibrillation type: paroxysmal Qualified Code(s): I48.0 - Paroxysmal atrial fibrillation (2) HLD (hyperlipidemia) Hyperlipidemia type: unspecified Qualified Code(s): E78.5 - Hyperlipidemia, unspecified (3) Spinal stenosis Neurogenic claudication status: with neurogenic claudication Spinal region: lumbar Qualified Code(s): M48.062 - Spinal stenosis, lumbar region with neurogenic claudication (4) Hypertension Hypertension type: essential hypertension Qualified Code(s): I10 - Essential (primary) hypertension (5) CVA (cerebral vascular accident) CVA mechanism: unspecified Qualified Code(s): I63.9 - Cerebral infarction, unspecified
[2020-10-27] MEDS ORDERED: ROSUVASTATIN CALCIUM 20 MG TAB PO SCH (11:34)
[2020-10-27] MEDS ORDERED: PHARMACIST DISCHARGE MED REC CONSULT PRN (11:34)
[2020-10-27] MEDS ORDERED: IBUPROFEN 200 MG TAB PO PRN (11:34)
[2020-10-27] MEDS ORDERED: APIXABAN 5 MG TABLET PO SCH (11:34)
[2020-10-27] MEDS ORDERED: NON-FORMULARY MEDICATION (Ciclopirox 8 % solution) TOP SCH (11:34)
[2020-10-27] MEDS ORDERED: DULoxetine HCL 30 MG CAP PO SCH ×2 (11:34→21:00)
--- NOTE | 2020-10-27 14:39 | Magnetic Resonance Report ---
MRI OF THE BRAIN WITHOUT CONTRAST CLINICAL HISTORY: rule out CVA, spontaneous continuous vertigo COMPARISON STUDY: Head CT and CTA of the head performed earlier today. TECHNIQUE: Utilizing a 1.5 Marry magnet and dedicated coil, multiplanar, multiecho imaging of the bra in was performed without IV contrast. FINDINGS: There are no foci of restricted diffusion to suggest acute infarct. No acute intracranial h emorrhage, midline shift or mass effect is present. There is mild atrophy. Ventricular system is norm al. Basal cisterns are patent. There are no extra-axial collections. Flow-voids for the major intracr anial vessels are present. There is no intracranial mass on this unenhanced exam. Multiple small whit e matter T2 hyperintense foci suggest mild small vessel disease. There is no mastoid effusion. No cer ebellopontine angle mass is identified. There is mild ethmoid sinus mucosal thickening. IMPRESSION: No acute intracranial findings. ACT 112: Negative or not required by law. Electronically signed by: Venkata Gilliam M.D. 10/27/2020 2:37 PM
[2020-10-27] MEDS ORDERED: STROKE PATIENT DISCHARGE STA (17:05)
--- NOTE | 2020-10-27 17:07 | Communication Note ---
Date of Service: October 27, 2020 By CMS guidelines, a determination that the admission or continued stay is not medically necessary has been made by a member of the UR committee and a physi lee for this hospital stay, therefore a Code 44 will be completed and the Inpatient admission will be changed to outpatient.
--- NOTE | 2020-10-27 17:13 | Discharge Summary ---
Date of Service October 27, 2020 Admission HPI Per Admitting Provider 70 YOM with past medical history of: chronic back pain, lumbar herniation, fusion with hardware to cervical spine, recently placed spinal stimulator, OA, leg length discrepancy, HLD, HTN, Afib (on Eliquis), hypothyroidism, hypogonadism, prostatectomy 2009, DIANA on CPAP, Depression. Patient comes in to the ED, brought in by his daughter for dizziness, feeling "fuzzy", balance problems, and feeling like the room was spinning. This was associated with ringing in the ears but no hearing loss. The ringing in his ears dissipated about 1 hour ago. The room spinning stopped about 830. He still continues to feel dizzy/fuzzy and delayed speech. He feels his speech is difficult to get out secondary to his tongue feeling "funny". The patient recently had a nerve stimulator placed in about 8 days ago, and re-started his Eliquis the day after his procedure. He took his medications this morning. New medications were hydrocodone/acetaminophen prescribed after his stimulator placement. He has been using this but has not associated these symptoms with this medicine prior. The dizziness, ringing in the ears and balance started this morning around 0630 when patient awoke. Associated with room spinning and feeling of motion and unable to feel like he could get his balance. The room spinning and motion went away following him sitting down. The ringing in the ears and dizziness persisted until recently. He had no reproducible vertigo or alterations in sensorium in the EMD with movement or turning to side or standing to ambulate. No hearing loss reported or on exam. There was no nystagmus or lagging of eyes on exam. There were no other associated weakness, mild overshoot with finger to nose on left. Mild dysarthria. NIHSS-2. Not a tPA candidate secondary to NIHSS and on Eliquis. CTA of the head and neck were performed revealing suspected stenosis of the bilateral vertebral arteries(suboptimal due to artifact from cervical hardware), and mild stenosis of the right middle cerebral artery. Patient will be admitted to telemetry to continue neurological assessment and stroke work-up. Principal Diagnosis Vertigo -> Likely BPPV Discharge Exam Constitutional WD/WN, vitals as above Eyes EOM intact bilaterally; no conjunctival abnormality ENMT external ear and nose normal, oropharynx normal Neck trachea midline, no thyromegaly normal visual inspection Respiratory normal respiratory effort, lungs clear to auscultation no respiratory distress Cardiovascular RRR, no murmur, no edema Gastrointestinal (Abdomen) Inspection/Auscultation: abdomen normal to inspection; abdomen not distended Musculoskeletal no cyanosis or clubbing, extremities motor strength 5/5 Skin no rashes, warm and dry Neurologic moves all extremities and awake Psychiatric Orientation: alert, oriented to person and cooperative Discharge Data Allergies Allergy/AdvReac Type Severity Reaction Status Date / Time Cephalosporins Allergy Rash Verified 10/27/20 07:53 levofloxacin Allergy Rash Verified 10/27/20 07:53 Consultations 10/27/20 08:15 ED Decision to Admit Stat 10/27/20 11:34 Consult Neurology Routine Ordered Studies 10/27/20 06:59 CT angio head w con Stat CT angio neck with con Stat CT head/brain wo con Stat 10/27/20 08:22 MR brain wo con Routine Hospital Course (1) CVA (cerebral vascular accident): CVA vs TIA vs. BPPV/neuritis - NIHSS 2, ABCD2- 3 - Patient with presentation that appears as spontaneous episodic vestibular symptoms - Lasted about 2 hours, may have been triggered this morning with standing, but unable to reproduce in the EMD. - CTA of head and neck showed mild stenosis of right MCA and suspected stenosis of vertebral arteries. - MRI brain showed no stroke and only some mild small vessel disease. - All symptoms had resolved by afternoon of admission. Symptomatology really points more toward peripheral vertigo with it worsening when looking to the left. [place]-Hallpike was negative, but symptoms had resolved by the time of the test, and his neck fusion makes testing limited. Labyrinthitis also possible given nasal congestion of last few days, though that may also be allergies. Finally, Meniere's also possible, but less likely given no loss of hearing and all symptoms resolved. - Discharged home with instruction on how to safely do Simba maneuver should it return. He can follow up with PCP this week for check-up and if symptoms recur. (2) HLD (hyperlipidemia): - Continue high dose statin rosuvastatin 40 mg Qd (3) Hypertension: - No change (4) Atrial fibrillation: Currently in NSR- originally diagnosed in 2018 - is not on any rate or rythm controlling agent - remains on Eliquis for this - Has not had further documented episodes of such. 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 - Recently placed nerve stimulator - Medtronic Octrode (6) Lumbar facet joint syndrome: As above (7) Spinal stenosis: As above (8) Arthritis: As above (9) Prostate CA: with prstatectomy - Continue with arimidex - Mild incontinence reported (10) Essential tremor: (11) Hypogonadism: - On AndroGel 2 pumps daily- he uses once every other day - Non-formulary, may bring from home and use if needed Total Time Total Time Spent Total Time Spent (In Minutes): 35 Discharge Plan Discharge Items Patient Disposition: Home - Self-Care Reason For Visit: DIZZINESS, RULE OUT CVA Discharge Diagnosis: Vertigo -> Likely benign paroxysmal positional vertigo Activity: Resume your previous activity Non-emergency contact: Primary Care Provider Call non-emergency contact if: your symptoms worsen Follow-up/Referrals: He Ghosh [Primary Care Provider] - Diet: Heart Healthy Addtl Attending Provider Instructions: Mr. Stokes, You were admitted to the hospital with vertigo. We were concerned this was a stroke. We did an MRI of your brain, and this definitely ruled out stroke. There was no clot or acute issues with the CT scans that looked at the blood vessels in your head and neck. Due to the terrific findings, we think a "mini-stroke" or TIA is also unlikely. Most like, this had to do with your inner ear. Likely, this was on the left side as your vertigo was worse when you looked to the left. The most common cause of vertigo is benign paroxysmal positional vertigo (BPPV). This is caused by debris in your inner ear that trigger the sensors into thinking that your head is spinning when it clearly is not. The Simba maneuver can help move this debris to an area where it does not trigger the sensors in your ear. Other possible causes would be a mild inflammation of your inner ear from a virus (like a cold virus) or even from a full ear from allergies. Even less likely is something called Meniere's disease which usually comes with hearing loss. Please see your PCP this week to just review everything and check in on how you're doing. If you have another episode, try the Simba maneuver. If this does not resolve your vertigo, please contact your PCP to check on next steps in diagnosis and treatment. If you have concerns for a stroke (Face, Arm, Speech, Time) or other concerning symptoms, please come to the hospital right away. Pending Studies at Discharge: No Stand-Alone Forms: My [facility], Smoking Cessation Medications and DC Order Prescriptions: Continued propranolol [Inderal LA] 80 mg capsule,extended release 24 hr 80 mg PO QAM RF: 0 HEEL LIFTS Misc See Rx Instructions .ROUTE .COMPLEX Qty: 3 RF: 0 hydrocodone-acetaminophen 5-325 mg tablet 1 tab PO Q6H Qty: 10 RF: 0 lisinopril 20 mg Tablet 20 mg PO QAM RF: 0 levothyroxine [Synthroid] 200 mcg Tablet 200 mcg PO DAILYBB RF: 0 duloxetine [Cymbalta] 30 mg Capsule,Delayed Release(Dr/Ec) See Rx Instructions .ROUTE .COMPLEX RF: 0 anastrozole [Arimidex] 1 mg tablet 1 mg PO HS RF: 0 rosuvastatin 40 mg tablet 40 mg PO QAM RF: 0 Eliquis 5 mg tablet 5 mg PO BID RF: 0 ciclopirox 8 % solution 1 applic TOPICAL Q2D RF: 0 lorazepam 0.5 mg tablet 0.5 mg PO BID PRN (Reason: Anxiety) RF: 0 baclofen 10 mg tablet 10 mg PO TID RF: 0 ibuprofen 200 mg Tablet 200 mg PO Q6H PRN (Reason: Pain) RF: 0 Grassroots Thc 10mg Tablets 10 mg PO UD RF: 0 Discharge Orders: Discharge Order (Routine); Ordered 10/27/20 Ordered By: Jarad Garcia Admission Data Admit Date/Time: 10/27/20 10:35 Attending Provider: Jarad Garcia Admit Provider: Jarad Garcia Primary Care Provider: He Ghosh Other Providers: Jarad Garcia ; Dayne Mina Coding Level of Care Code Admit/DC Same Day >8hr Level 3 Diagnoses CVA (cerebral vascular accident) I63.9 CVA mechanism: unspecified HLD (hyperlipidemia) E78.5 Hyperlipidemia type: unspecified Hypertension I10 Hypertension type: essential hypertension Atrial fibrillation I48.0 Atrial fibrillation type: paroxysmal Lumbar disc herniation M51.26 Lumbar facet joint syndrome M47.816 Spinal stenosis M48.062 Spinal region: lumbar Neurogenic claudication status: with neurogenic claudication Arthritis M19.90 Prostate CA C61 Essential tremor G25.0 Hypogonadism
[2020-10-27] MEDS ORDERED: ANASTROZOLE 1 MG TAB PO SCH (21:00)
[2020-10-27] MEDS ORDERED: FAMOTIDINE 20MG/5ML IV PUSH IV SCH (21:00)
[2020-10-28] MEDS ORDERED: LEVOTHYROXINE SODIUM 200 MCG TABLET PO SCH (06:30)
--- NOTE | 2020-10-28 12:32 | Electrocardiogram Report ---
Test Reason : Blood Pressure : / mmHG Vent. Rate : 064 BPM Atrial Rate : 064 BPM P-R Int : 092 ms QRS Dur : 114 ms QT Int : 448 ms P-R-T Axes : 029 033 027 degrees QTc Int : 462 ms Poor data quality, interpretation may be adversely affected Sinus rhythm When compared with ECG of 03-OCT-2020 10:33, Premature atrial complexes are no longer Present Confirmed by Jason Lara ([id number]) on 10/28/2020 12:32:26 PM Referred By: REFERRED SELF Confirmed By:Chivo Lara
== END 2020-10-27 18:07 | disposition home or self-care (01) ==
LOC: ED 06:32 → INTOOBSV 10:35 → 2E 10:35

== ENCOUNTER 2021-12-31 05:08 | Observation (INO) ==
--- NOTE | 2021-12-17 08:49 | PAT Medication Instructions ---
Medication Instructions Date of Service December 17, 2021 Home Medications Medication Instructions Recorded apixaban 5 mg tablet (Eliquis) 5 mg PO BID #180 tabs 12/25/20 levothyroxine 200 mcg tablet (Synthroid) 200 mcg PO QAM lisinopril 20 mg tablet 20 mg PO QAM duloxetine 30 mg capsule,delayed release (Cymbalta) 30 - 60 mg PO UD propranolol 80 mg capsule,24 hr,extended release (Inderal LA) 80 mg PO QAM rosuvastatin 40 mg tablet 40 mg PO QAM ibuprofen 200 mg tablet 200 mg PO Q6H PRN Pain lorazepam 0.5 mg tablet 0.5 mg PO BID PRN Anxiety apixaban 5 mg tablet (Eliquis) 5 mg PO BID multivitamin 1 tab PO Q2D buspirone 5 mg tablet 5 mg PO BID cholecalciferol (vitamin D3) 25 mcg (1,000 unit) tablet (Vitamin D3) 25 mcg PO QAM gabapentin 300 mg tablet 300 mg PO TID testosterone 20.25 mg/1.25 gram (1.62 %) transdermal gel pump (AndroGel) 2 pump transdermal QAM ASK your surgeon for instructions ibuprofen 200 mg tablet 200 mg PO Q6H PRN Pain ASK your prescriber and surgeon apixaban 5 mg tablet (Eliquis) 5 mg PO BID (in order for spinal anesthesia, Apixaban/Eliquis needs to be stopped 72 hours/3 days before surgery. Please check if okay with doctor that prescribes this to you) DO NOT take the morning of surgery lisinopril 20 mg tablet 20 mg PO QAM multivitamin 1 tab PO Q2D cholecalciferol (vitamin D3) 25 mcg (1,000 unit) tablet (Vitamin D3) 25 mcg PO QAM Take morning of surgery With a small sip of water, OTHERWISE NOTHING TO EAT OR DRINK AFTER MIDNIGHT: levothyroxine 200 mcg tablet (Synthroid) 200 mcg PO QAM duloxetine 30 mg capsule,delayed release (Cymbalta) 30 - 60 mg PO UD propranolol 80 mg capsule,24 hr,extended release (Inderal LA) 80 mg PO QAM rosuvastatin 40 mg tablet 40 mg PO QAM lorazepam 0.5 mg tablet 0.5 mg PO BID PRN Anxiety (if needed) buspirone 5 mg tablet 5 mg PO BID gabapentin 300 mg tablet 300 mg PO TID Take evening before surgery duloxetine 30 mg capsule,delayed release (Cymbalta) 30 - 60 mg PO UD lorazepam 0.5 mg tablet 0.5 mg PO BID PRN Anxiety (if needed) buspirone 5 mg tablet 5 mg PO BID gabapentin 300 mg tablet 300 mg PO TID Other Notes If you have any questions please call us at [phone] or [phone] or [phone] or [phone]
--- NOTE | 2021-12-22 11:42 | Anesthesiology Consultation ---
Date of Service December 22, 2021 Assessment & Plan (1) Encounter for pre-operative examination: - COVID screening: Per assessment on 12/22: No known COVID-19 positive contacts or current COVID-19 related symptoms. Travel screen negative. Surgeon arranging preop COVID testing. Awaiting results. - S/P Insertion of SCS (10/22/20): MAC at [facility]. No issues noted per post-op anesthesia progress note. - Cardiology office visit (12/12/21): "Based on his functional status without limiting cardiopulmonary symptoms, normal LV systolic function on Echocardiogram 1 year ago, and his essentially normal EKG tracing -- patient is an acceptable surgical risk to proceed with surgery as scheduled provided he take his usual dose of Propranolol XL the morning of surgery with sips of water. Patient is aware to hold his Lisinopril the morning of surgery. Patient was advised to hold Eliquis x 3 days leading to surgery. There is no need for further ischemic workup at this time" - PCP note (12/19/21): Medically cleared for surgery- "Yes" - Anesthesia concern: Pt concerned about post-op cognitive decline/memory loss. Pt would like to avoid general anesthesia if possible. Discussed SAB vs GA. Advised patient that ultimate anesthesia decision made DOS. - Possible difficult intubation: Per ortho/surgeon note (12/22/21), "He has had a neck fusion as well. He has some decreased movement. He has a spine stimulator . At this point in time, he is very complicated medically, will obtain x-rays of his neck to ensure that he has no issues." C-spine xray done 12/22/21 ([facility])- Radiology states that Dr. Rizvi reads the reports himself. Lianet at surgeon's office made multiple attempts to obtain x-ray report but says she will not be able to obtain results prior to surgery. Reviewed with Dr. aMrin. He feels that patient okay to proceed with surgery as scheduled. Will need to evaluate patient AM DOS- possible difficult intubation* Chart Review Chart Review: Acceptable Risk for Surgery (pending evaluation AM DOS) and Patient seen in Pre Admission Testing Teaching & Discussion Pre-Anesthesia Teaching/Discussion Notes: Instructed NPO after midnight before surgery,except medications with 15 cc of water. Medication instructions provided according to the PAT guidelines. History Surgery Operation Date: 12/31/21 07:00 Proposed Procedures p Left Total Knee Arthroplasty - Bill Rizvi MD Height/Weight Height: 6 ft 2 in Weight: 100.7 kg Allergies Allergy/AdvReac Type Severity Reaction Status Date / Time Cephalosporins Allergy Rash Verified 12/12/21 09:06 levofloxacin Allergy Rash Verified 12/12/21 09:06 Medications Home Medications Medication Instructions Recorded Confirmed Last Taken levothyroxine 200 mcg tablet 200 mcg PO QAM 01/10/18 12/12/21 10/27/20 (Synthroid) lisinopril 20 mg tablet 20 mg PO QAM 01/10/18 12/12/21 10/27/20 duloxetine 30 mg capsule,delayed 30 - 60 mg PO UD 04/16/18 12/12/21 10/27/20 release (Cymbalta) propranolol 80 mg capsule,24 80 mg PO QAM 07/18/19 12/12/21 10/27/20 hr,extended release (Inderal LA) rosuvastatin 40 mg tablet 40 mg PO QAM 10/02/20 12/12/21 10/27/20 ibuprofen 200 mg tablet 200 mg PO Q6H PRN Pain 10/27/20 12/12/21 10/27/20 06:30 600 mg lorazepam 0.5 mg tablet 0.5 mg PO BID PRN Anxiety 10/27/20 12/12/21 10/26/20 23:00 0.5mg apixaban 5 mg tablet (Eliquis) 5 mg PO BID #180 tabs 12/25/20 12/12/21 Unknown multivitamin 1 tab PO Q2D 08/06/21 12/12/21 Unknown buspirone 5 mg tablet 5 mg PO BID 11/12/21 12/12/21 Unknown HEEL LIFTS 12/11/21 12/12/21 Unknown cholecalciferol (vitamin D3) 25 25 mcg PO QAM 12/11/21 12/12/21 Unknown mcg (1,000 unit) tablet (Vitamin D3) gabapentin 300 mg tablet 300 mg PO TID 12/11/21 12/12/21 Unknown testosterone 20.25 mg/1.25 gram 2 pump transdermal QAM 12/11/21 12/12/21 Unknown (1.62 %) transdermal gel pump (AndroGel) Past Medical History Medical History Anxiety Asthma No symptoms x 15 years Well controlled Atrial fibrillation Dx 2 years ago Reason for Eliquis; follows with [facility]/Dr. Gutierres Cancer Skin cancer - s/p excision Chronic back pain Degenerative disc disease, lumbar Depression Essential tremor Hands - reason for propranolol History of dizziness 10/2020- CVA ruled out at [facility] evaluation > felt r/t vertigo/BPPV. Per patient, no further issues- was told possibly r/t post herpetic neuralgia. History of shingles Hyperlipidemia Hypertension Hypothyroidism Lumbar radiculopathy Malignant neoplasm of prostate s/p radical prostatectomy 2009 (no chemo or XRT) Post herpetic neuralgia Sacroiliitis Sleep apnea CPAP (compliant) Spinal cord stimulator status Chronic back pain [employer] > OR made aware Exercise / Class Metabolic Activity II 4-5 Yardwork/Stairs/Walk up hill (one FS (no CP, no SOB)) Past Family History Family History Father Prostate cancer Brother Prostate cancer Diabetes Other No family history of adverse response to anesthesia Denies family history of Ovarian cancer Myocardial infarction Breast cancer Colorectal cancer Past Surgical History Surgical History Fusion of spine C4-C7 > limited ROM side to side and with extension per pt History of appendectomy History of cataract surgery R/L History of herniorrhaphy History of penile implant History of prostatectomy History of toe surgery B/L great toe Hx of colonoscopy S/P insertion of spinal cord stimulator Insertion of SCS (10/22/20): MAC at [facility] Past Anesthesia History No Family Hx of Anesthesia Complications and Other (Psychotic episode x 1-2 days post-op C4-7 fusion ([place], 15 years ago), no issues with subsequent surgeries/anesthesia) History of PONV No Hx of PONV and No Hx of Motion Sickness Social History Smoking Status: Former smoker Do You Dip or Chew Tobacco: No Smoking End Date: Quit 40 years ago Hx Alcohol Use: Yes ("stopped drinking one year ago") Alcohol type: wine alcohol intake frequency: 0-2 drinks per day Hx Substance Use: Yes (medical marijuana) substance use type: marijuana Substance Use Type Other:: medical card Last Used Substance Other:: 12/08/21 Review of Systems Patient denies chest pain, shortness of breath, dyspnea on exertion, fever, chills, cough, wheezing, palpitations. Physical Exam Vital Signs VITALS BP 146/89 P 80 TEMP 98.2 SP02 99%RA RESP 16 PHYSICAL Decreased cervical extension range of motion. Full TMJ range of motion. TMD 3.5 finger breaths Mallampati Score 3 Dentition: intact Lungs: clear throughout to auscultation Cardiac: regular rate and rhythm, no murmurs noted Spine: normal Carotid arteries: negative bruit Extremities: no edema Lab Results Anesthesia Preop Results Results Anesthesia Widget: WBC 5.53 K/ul (4.8-10.8) 12/22/21 Hgb 16.2 g/dl (14.0-18.0) 12/22/21 Hct 47.6 % (40.1-51.0) 12/22/21 Plt 169 K/uL (130-400) 12/22/21 Na 138 mmol/L (136-145) 12/22/21 K 5.4 mmol/L (3.5-5.1) H 12/22/21 Cl 104 mmol/L (98-107) 12/22/21 CO2 30 mmol/L (21-32) 12/22/21 BUN 20 mg/dl (6-23) 12/22/21 Creat 1.00 mg/dl (0.6-1.4) 12/22/21 Glucose Level 120 mg/dl (70-99(Fasting)) H 12/22/21 PT 11.3 Seconds (9.0-12.0) 12/22/21 PTT 30.5 Seconds (21.0-31.0) 12/22/21 INR 1.1 (0.9-1.1) 12/22/21 Urine Color Dark Yellow 12/22/21 Urine Appearance Clear (Clear) 12/22/21 Urine pH 6.0 (4.5-7.5) 12/22/21 Urine Specific [place] 1.026 (1.000-1.030) 12/22/21 Urine Protein Negative (Negative) 12/22/21 Urine Glucose (UA) Negative (Negative) 12/22/21 Urine Ketones Negative (Negative) 12/22/21 Urine Blood Negative (Negative) 12/22/21 Urine Nitrite Negative (Negative) 12/22/21 Urine Bilirubin Negative (Negative) 12/22/21 Urine Urobilinogen Negative (Negative) 12/22/21 Urine Leukocyte Esterase Negative (Negative) 12/22/21 Blood Type A Negative 12/22/21 Antibody Screen NEGATIVE 12/22/21 Testing Laboratory Results Updated labs (12/25/21)- potassium level repeated by PCP d/t elevation on 12/22/21 preop labs > now WNL* K 4.1 (WNL) Electrocardiogram Date: 12/12/21 Sinus rhythm with marked sinus arrhythmia/PACs at 68 bpm. Chest X-Ray Date: 12/22/21 FINDINGS: Cardiomediastinal and hilar silhouettes are unchanged. The lungs are mildly hyperinflated with diaphragmatic flattening. No pneumothorax, pleural effusion, airspace consolidation or overt pulmonary edema. Spondylitic spurring of the spine. Spinal stimulator leads are noted overlying the midthoracic spine with the imaged portions appearing intact. IMPRESSION: No acute process. Echocardiogram Date: 12/17/20 EF 65%. No regional motion abnormality. Mild concentric LVH. RAD. RVD. No significant valvular disease. Other Testing Carotid duplex (12/17/20) Minimal irregularsurface, fibro- fatty plaque in the bulb and right ICA. Minimal complex, calcified plaque in the bulb of the left ICA. Normal antegrade flow in both vertebral arteries. Brain MRI (10/27/20) FINDINGS: There are no foci of restricted diffusion to suggest acute infarct. No acute intracranial hemorrhage, midline shift or mass effect is present. There is mild atrophy. Ventricular system is normal. Basal cisterns are patent. There are no extra-axial collections. Flow-voids for the major intracranial vessels are present. There is no intracranial mass on this unenhanced exam. Multiple small white matter T2 hyperintense foci suggest mild small vessel disease. There is no mastoid effusion. No cerebellopontine angle mass is identified. There is mild ethmoid sinus mucosal thickening. IMPRESSION: No acute intracranial findings. Neck CTA (10/27/20) No stenosis within the bilateral common carotid or cervical internal carotid ar teries. Suspected stenoses at the origins of the bilateral vertebral arteries which are suboptimally assessed on this exam due to artifact. No dissection. Head CTA (10/27/20) No intracranial aneurysm. No central vessel occlusion. Mild stenosis of the right middle cerebral artery.
--- NOTE | 2021-12-26 15:51 | History & Physical Report ---
Date of Service December 26, 2021 Assessment & Plan (1) Left knee DJD: Plan: Postoperative prescriptions for Percocet will be provided at discharge from the hospital. Anticipate discharge to home with home health services. He will stop his Eliquis 3 days prior to surgery. We will resume it after surgery. PDMP was checked and there were no concerning findings. The patient is aware of the COVID-19 risks associated with surgery. He is currently asymptomatic of any COVID-19 symptoms. He will obtain nasal swab testing 2 days prior to surgery. He has already received cardiac clearance. He will see his PCP for medical clearance as well. The patient will hold his lisinopril the morning of surgery. The patient has been scheduled for followup on 01/15 at 1:30 p.m. for staple removal. History of Present Illness Chief Complaint: Left knee pain Primary Care Provider: Manuel Lucio This is a 71-year-old male, who presents for his preoperative history and physical. He is scheduled to undergo a left knee total knee arthroplasty on 12/31/2021. The patient has had left knee pain for over a year. Symptoms started in 2019. He has tried activity modification, viscosupplementation and oral pain medication without improvement. He now elects to proceed with total joint arthroplasty. He denies any locking. He notes that the knee occasionally angela on him when he is coming down stairs or hills. No numbness or tingling. He does have known peripheral neuropathy. He also has known back issues with significant degenerative disk disease. No symptoms in the right knee. Pain is worse with weightbearing. It is affecting his ADLs. He elects to proceed with surgical intervention in hopes of improving his function. Preoperative imaging has been obtained. Allergies Allergy/AdvReac Type Severity Reaction Status Date / Time Cephalosporins Allergy Rash Verified 12/12/21 09:06 levofloxacin Allergy Rash Verified 12/12/21 09:06 Home Medications Medication Instructions Recorded Confirmed Type levothyroxine 200 mcg tablet 200 mcg PO QAM 01/10/18 12/12/21 History (Synthroid) lisinopril 20 mg tablet 20 mg PO QAM 01/10/18 12/12/21 History duloxetine 30 mg capsule,delayed 30 - 60 mg PO UD 04/16/18 12/12/21 History release (Cymbalta) propranolol 80 mg capsule,24 80 mg PO QAM 07/18/19 12/12/21 History hr,extended release (Inderal LA) rosuvastatin 40 mg tablet 40 mg PO QAM 10/02/20 12/12/21 History ibuprofen 200 mg tablet 200 mg PO Q6H PRN Pain 10/27/20 12/12/21 History lorazepam 0.5 mg tablet 0.5 mg PO BID PRN Anxiety 10/27/20 12/12/21 History apixaban 5 mg tablet (Eliquis) 5 mg PO BID #180 tabs 12/25/20 12/12/21 Rx multivitamin 1 tab PO Q2D 08/06/21 12/12/21 History buspirone 5 mg tablet 5 mg PO BID 11/12/21 12/12/21 History HEEL LIFTS 12/11/21 12/12/21 History cholecalciferol (vitamin D3) 25 25 mcg PO QAM 12/11/21 12/12/21 History mcg (1,000 unit) tablet (Vitamin D3) gabapentin 300 mg tablet 300 mg PO TID 12/11/21 12/12/21 History testosterone 20.25 mg/1.25 gram 2 pump transdermal QAM 12/11/21 12/12/21 History (1.62 %) transdermal gel pump (AndroGel) Past Med/Surg History Medical History Anxiety Asthma No symptoms x 15 years Well controlled Atrial fibrillation Dx 2 years ago Reason for Eliquis; follows with [facility]/Dr. Gutierres Cancer Skin cancer - s/p excision Chronic back pain Degenerative disc disease, lumbar Depression Essential tremor Hands - reason for propranolol History of dizziness 10/2020- CVA ruled out at [facility] evaluation > felt r/t vertigo/BPPV. Per patient, no further issues- was told possibly r/t post herpetic neuralgia. History of shingles Hyperlipidemia Hypertension Hypothyroidism Lumbar radiculopathy Malignant neoplasm of prostate s/p radical prostatectomy 2009 (no chemo or XRT) Post herpetic neuralgia Sacroiliitis Sleep apnea CPAP (compliant) Spinal cord stimulator status Chronic back pain Medtronic > OR made aware Surgical History Fusion of spine C4-C7 > limited ROM side to side and with extension per pt History of appendectomy History of cataract surgery R/L History of herniorrhaphy History of penile implant History of prostatectomy History of toe surgery B/L great toe Hx of colonoscopy S/P insertion of spinal cord stimulator Insertion of SCS (10/22/20): MAC at [facility] Family History Father Prostate cancer Brother Prostate cancer Diabetes Other No family history of adverse response to anesthesia Denies family history of Ovarian cancer Myocardial infarction Breast cancer Colorectal cancer Social History Smoking Status: Former smoker Tobacco Type: Cigarettes Age Started Using Tobacco: 10; Age Quit Using Tobacco: 33; packs per day: 1; Second Hand Exposure: No; Hx Alcohol Use: Yes ("stopped drinking one year ago") Alcohol type: wine Alcohol Intake Frequency: Monthly or Less Hx Substance Use: Yes (medical marijuana) Last Used Substance Other:: 12/08/21 Substance Use Type Other:: medical card Preferred Language: Congolese Communication Ability: Effective Visual Impairment: No Limitations Hearing Ability: Normal 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 Physical Exam Physical Exam: VITAL SIGNS: Height 188.5, weight 101 kg, BMI 28.4. Temperature 36.3, BP 140/84, pulse 76, respirations 16, O2 saturation 99% on room air. GENERAL: Well-developed, well-nourished elderly white male in no acute distress. Sitting on a chair. Alert and oriented. No acute distress. SKIN: Warm and dry with good turgor. No rashes or lesions. No ecchymosis or erythema. No intra-articular effusion. HEENT: Normocephalic, atraumatic. Eyes: PERRLA, EOMI. Oropharynx and nares exams were deferred due to COVID precautions. HEART: RRR. No MGR. Occasional extra beat. LUNGS: Clear to auscultation bilaterally. No crackles, rhonchi or wheezing. Good air movement. ABDOMEN: Bowel sounds present x4, soft, nontender. No organomegaly. No masses. Mildly obese. MUSCULOSKELETAL: Left knee evaluation reveals no intra-articular effusion. He lacks a few degrees of terminal extension. Flexion to greater than 100 degrees. Obvious varus deformity. Visibly bow legged. He has focal pain with palpation over the medial joint line. This extends posteriorly. No significant discomfort with palpation over the lateral joint line today. Stable collateral ligaments. Normal Sergei. No significant crepitus with motion of the knee. He is ambulating with a slow shuffling antalgic gait. No defect in the patellar tendon or quadriceps tendon. He is able to perform a straight leg raise. NEUROLOGIC: Gross sensation is intact across the left leg by soft touch. Peripheral pulses are 2+. Results & Data Results & Data ([facility]) Diagnostic Findings Radiographic imaging previously obtained shows significant medial joint narrowing. He is essentially [id number]. MRI shows cartilage wear in the patellofemoral joint as well as the medial compartment. Periarticular osteophytes and subchondral sclerosis are also evident. Code Status & VTE Plan VTE Prophylaxis Plan VTE Prophylaxis will be ordered: Yes
[2021-12-31] MEDS ORDERED: CLINDAMYCIN PHOS 900 MG/6 ML VIAL IV SCH (06:00)
[2021-12-31] MEDS ORDERED: VANCOMYCIN HCL 1,500 MG in SODIUM CHLORIDE 0.9% 500 ML IV SCH ×2 (06:00→18:15)
[2021-12-31] MEDS ORDERED: LR 60ML/HR IV SCH (06:00)
[2021-12-31] MEDS ORDERED: ROPIVACAINE 0.5% HCL/PF 150 MG, BUPIVACAINE 0.75% MPF 20 ML, EPINEPHrine 0.15 MG, Ketor... INFIL SCH (06:00)
[2021-12-31] MEDS ORDERED: ceFAZolin 2000MG 2,000 MG/15 ML SYR IV SCH (06:00)
[2021-12-31] MEDS ORDERED: TRANEXAMIC ACID 1,000 MG x 1 **For Topical Use TOP SCH (06:00)
[2021-12-31] MEDS ORDERED: LR 500ML BOLUS, THEN 15ML/HR IV SCH (06:00)
[2021-12-31] MEDS ORDERED: BUPIVACAINE 0.5 % 5 MG/1 ML PF 10ML VIAL ONE (06:13)
[2021-12-31] MEDS ORDERED: ROPIVACAINE 0.5% 5 MG/ML 30 ML VIAL ONE (06:13)
--- NOTE | 2021-12-31 06:26 | History & Physical Bridge Note ---
Date of Service December 31, 2021 History & Physical Bridge Note I have examined the patient, reviewed the History & Physical and in the interval since the performance of the History & Physical I have noted the following changes of clinical significance: no changes noted.
[2021-12-31] MEDS ORDERED: ONDANSETRON INJ 2 MG/ML 2 ML VIAL ONE (06:27)
[2021-12-31] MEDS ORDERED: MIDAZOLAM HCL 1 MG/ML 2ML VIAL ONE (06:27)
[2021-12-31] MEDS ORDERED: PROPOFOL IV EMULSION 10 MG/ML 20 ML VIAL IV ONE (06:27)
[2021-12-31] MEDS ORDERED: LIDOCAINE 2% 20 MG/ML 5 ML SYR IV ONE (06:27)
[2021-12-31] MEDS ORDERED: CLINDAMYCIN 900 MG/D5W 50 ML BAG IV ONE (06:29)
[2021-12-31] MEDS ORDERED: ORTHO JOINT ANESTHETIC ONE (06:35)
[2021-12-31] MEDS ORDERED: fentaNYL citrate 100 MCG/2 ML VIAL ONE ×2 (06:44→08:42)
[2021-12-31] MEDS ORDERED: ATROPINE SULFATE 0.1 MG/ML 10ML SYR IV PRN (06:53)
[2021-12-31] MEDS ORDERED: LABETALOL HCL IV 5 MG/ML 20ML IV PRN (06:53)
[2021-12-31] MEDS ORDERED: PROMETHAZINE HCL 6.25 MG in SODIUM CHLORIDE 0.9% 50 ML IV PRN (06:53)
[2021-12-31] MEDS ORDERED: HYDROmorphone INJ 1 MG/ML SYRINGE IV PRN (06:53)
[2021-12-31] MEDS ORDERED: KETOROLAC 30 MG/ML VIAL IV PRN (06:53)
[2021-12-31] MEDS ORDERED: ONDANSETRON INJ 2 MG/ML 2 ML VIAL IV PRN ×2 (06:53→10:12)
[2021-12-31] MEDS ORDERED: PHENYLEPHRINE 100MCG/ML 5ML SYR ONE (07:22)
[2021-12-31] MEDS ORDERED: ceFAZolin 330 MG/ML 1 GM VIAL ONE (07:22)
[2021-12-31] MEDS ORDERED: ePHEDrine sulfate 50 MG/ML SYR ONE (07:22)
[2021-12-31] MEDS ORDERED: ROCURONIUM BROMIDE 10 MG/ML 5 ML VIAL IV ONE (08:31)
[2021-12-31] MEDS ORDERED: NEOSTIGMINE METHYLSULFATE 1 MG/ML 10ML VIAL ONE (08:31)
[2021-12-31] MEDS ORDERED: GLYCOPYRROLATE 0.2 MG/ML VIAL ONE (08:31)
[2021-12-31] MEDS ORDERED: KETOROLAC 30 MG/ML VIAL ONE (08:44)
--- NOTE | 2021-12-31 08:45 | Post Operative Brief Note ---
Immediate Post Op Note v1 Date of Surgery December 31, 2021 Pre & Post Diagnosis Operation Date: 12/31/21 07:00 Pre-Op Diagnosis: Left Knee Degenerative Joint Disease Post-Op Diagnosis: Left Knee Degenerative Joint Disease I identified the patient and participated in the time-out.: Yes Procedure Operation Date: 12/31/21 07:00 Actual Procedures p Left Total Knee Arthroplasty(Left) - Bill Rizvi MD Surgeon Bill Rizvi MD Thread Inspector Toya/Venkat Estimated Blood Loss 50 Findings Consistent with Post-Op Diagnosis
--- NOTE | 2021-12-31 09:01 | Operative Report (OR) ---
DATE OF PROCEDURE: 12/31/2021. SURGEON: Bill Rizvi MD. DIRECTOR APPAREL: Chad Pittman DO. SECOND DIRECTOR APPAREL: Elsy Robledo PA-C. PREOPERATIVE DIAGNOSIS: Osteoarthritis with varus flexion deformity of left knee. POSTOPERATIVE DIAGNOSIS: Osteoarthritis with varus flexion deformity of left knee. OPERATION PERFORMED: Cemented left total knee replacement. SUMMARY OF IMPLANTS: Size 5 left femur posterior cruciate substituting, size 5 mobile bearing tray, size 41 patella, size 5 x 10 posterior cruciate substituting insert, 2 bags of Palacos G cement. BONE PATHOLOGY: Pending. DVT prophylaxis with Eliquis. PERIOPERATIVE SITUATION: Medically cleared male, high risk patient who has been cleared for surgery. Understands risks and consequences including , who is requesting a total knee replacement base d on severe left knee pain. DESCRIPTION OF PROCEDURE: After the patient was appropriately identified, site verified, consent oneal ified, antibiotics were confirmed as being given, the left knee was prepped and draped in usual routi ne fashion. Tourniquet was inflated to 300 mmHg after exsanguination of the limb with a rubber Esmar ch bandage for a total of 58 minutes. Midline exposure utilized. Parapatellar arthrotomy performed. Synovectomy completed, osteophytes resected. Distal femur entered. Cruciates resected. Tibia was subluxated, menisci resected. Distal femur resected 14 mm, proximal tibia 4 mm, the extension gap w as excellent. He was then sized between a 6 and a 5, he was measured 6, cut 5. Flexion gap was sligh tly tight laterally. It was released appropriately, then it was excellent. The box cut was then mad e. A size 5 fit well. The tibia was then subluxated, broached and reamed for a size 5 tibia. The 1 0 spacer fit well, there was excellent stability and full extension, mid range flexion and full flexi on. Patella was slightly tracking laterally. There was a tight band that was released and tracked w ell. Patella was then resected leaving 15 mm. The seating holes were then made for the 41 patella a nd it tracked well. The Orthomix was then injected all about the knee. The implants were then remov ed. The TXA was placed for 4 minutes. The wound was then irrigated. The permanent then cemented in to position - tibia, femur, and patella in that order. At 12 minutes, the tourniquet deflated. Shaquille r bleeding was controlled with electrocautery. At 14 minutes, knee flexed. Minor cement removal and irrigation occurred. The trial spacer removed and then the permanent liner seated. The knee then f lexed at 40 degrees and closed after it was reduced with #2 Vicryl, 2-0 Vicryl and stainless steel cl ips. Appropriate dressing applied. The patient was transferred to recovery room in satisfactory con dition, having tolerated the procedure well. EBL was 50 mL or less. Job ID: [id number]
--- NOTE | 2021-12-31 09:13 | Progress Notes ---
DATE OF SERVICE: 12/31/2021 SUBJECTIVE: Postop check status post left total knee replacement. The patient is awake and alert. He does not have any severe pain. He did not have a spinal. He did have Orthomix injected about the knee. He denies chest pain, shortness of breath, fever, chills, nausea, vomiting or headache. OBJECTIVE: Neurovascular check of femoral sciatic nerve is normal. Can do ankle pumps. Can do a st raight leg raise. X-rays are pending. ASSESSMENT AND PLAN: Overall doing well status post left total knee replacement. Continue with care pathway. Discharge home tomorrow. Job ID: [id number]
--- NOTE | 2021-12-31 09:21 | XRay Report ---
LEFT KNEE 2 VIEWS History: Left total knee arthroplasty. Degenerative arthritis. Postop. FINDINGS: The patient is status post a left total knee arthroplasty. The hardware is intact. No fract ure or dislocation. Skin bonita are in place. IMPRESSION: Left total knee arthroplasty. No evidence for hardware complication. ACT 112: Negative or not required by law. Electronically signed by: Carlito Diaz M.D. 12/31/2021 9:19 AM
--- NOTE | 2021-12-31 09:43 | Discharge Summary (DS) ---
DATE OF ADMISSION: 12/31/2021. DATE OF POTENTIAL DISCHARGE: 01/01/2022. CHIEF COMPLAINT: Left knee pain. HISTORY OF PRESENT ILLNESS: Underwent an elective left total knee replacement. To date, hospital course has been uneventful. ALLERGIES: INCLUDE CEPHALOSPORINS, LEVOFLOXACIN, AND CLINDAMYCIN, UNCLEAR OF ALLERGIES REALLY, HE TOLERATED CEPHALOSPORIN IN THE OR TODAY. HOME MEDICATIONS: Include Synthroid, lisinopril, Cymbalta, propranolol, rosuvastatin, p.r.n. ibuprofen, p.r.n. lorazepam, Eliquis, multivitamin, buspirone, heel lifts, vitamin D, gabapentin, testosterone. DISCHARGE MEDICATIONS: Will have pain medication including Percocet and/or equivalent as well as continue his Eliquis 24 hours postop. He will have a pressure dressing. PAST MEDICAL HISTORY: Remarkable for asthma, atrial fibrillation, history of skin cancer, chronic back pain, degenerative disk disease of the lumbar spine, essential tremor, history of dizziness, rule out CVA, history of shingles, hyperlipidemia, hypertension, hypothyroidism, lumbar radiculopathy, prostate cancer, status post radical prostatectomy, no chemo, post-herpetic neuralgia, sacroiliitis, sleep apnea, CPAP, spinal cord stimulator, chronic back pain. He has a Ubicomtronic stimulator. PAST SURGICAL HISTORY: Remarkable for spine fusion, appendectomy, cataract surgery, herniorrhaphy, penile implant, prostatectomy, toe surgery, colonoscopy, spinal cord stimulator. FAMILY HISTORY: Remarkable for prostate cancer in his father and his brother, diabetes in the family. No ovarian cancer. No history of MA, breast cancer, colorectal cancer. SOCIAL HISTORY: Reveals he is a former smoker of tobacco with cigarettes, started at age 10, quit at age 33. Smoked at least a pack per day. No secondhand exposure. Social alcohol, stopped a year ago. Uses medical marijuana. Has no visual impairment, no hearing impairment. He is and lives with his spouse. He does use a CPAP. REVIEW OF SYSTEMS: Reveals no chest pain, shortness of breath, fever, chills, nausea, vomiting or headache. ASSESSMENT AND PLAN: Status post left total knee replacement, doing well. Hospital course so far has been uneventful. Continue with care pathway. Discharge to home tomorrow. Job ID: [id number] [facility]
[2021-12-31] MEDS ORDERED: TAMSULOSIN HCL 0.4 MG CAP PO PRN (10:12)
[2021-12-31] MEDS ORDERED: SODIUM CHLORIDE 0.9% 1000ML 1,000 ML IV SCH (10:12)
[2021-12-31] MEDS ORDERED: NALOXONE HCL 0.4 MG/1 ML VIAL/CARP IV PRN (10:12)
[2021-12-31] MEDS ORDERED: VANCOMYCIN CONSULT ACTIVE PRN (10:12)
[2021-12-31] MEDS ORDERED: MAGNESIUM HYDROXIDE SUSP 30 ML UDC PO PRN (10:12)
[2021-12-31] MEDS ORDERED: HYDROmorphone INJ 0.5 MG/0.5 ML SYR IV PRN (10:12)
[2021-12-31] MEDS ORDERED: bisacodyL 10 MG SUPP PR PRN (10:12)
[2021-12-31] MEDS ORDERED: LORazepam 0.5 MG TAB PO PRN (10:12)
[2021-12-31] MEDS ORDERED: MULTIVITAMIN TAB PO SCH (11:00)
[2021-12-31] MEDS: PROPRANOLOL HCL LA 80 MG CAPCR PO SCH (11:03)
[2021-12-31] MEDS: LEVOTHYROXINE SODIUM 200 MCG TABLET PO SCH (11:05)
[2021-12-31] MEDS: ROSUVASTATIN CALCIUM 20 MG TAB PO SCH (11:05)
[2021-12-31] MEDS: DULoxetine HCL 30 MG CAP PO SCH (11:05)
[2021-12-31] MEDS: busPIRone 5 MG TAB PO SCH ×2 (11:06→20:17)
[2021-12-31] MEDS: GABAPENTIN 300 MG CAP PO SCH ×3 (11:06→20:16)
[2021-12-31] MEDS: CHOLECALCIFEROL 1,000 UNITS 25 MCG TAB PO SCH (11:06)
[2021-12-31] MEDS: lisinopril 20 MG TAB PO SCH (11:06)
--- NOTE | 2021-12-31 12:14 | Anesthesiology Progress Note ---
Date of Service December 31, 2021 Anesthesia Post Procedure Vital Signs Vital Signs: Temp Pulse Pulse Resp BP Pulse Ox O2 Del Method 12/31/21 11:00 36.6 C 65 16 126/80 98 Room Air 12/31/21 10:30 36.8 C 61 14 123/76 96 Room Air 12/31/21 10:00 36.9 C 63 12 124/79 97 Room Air 12/31/21 09:35 36.7 C 68 20 118/82 95 Room Air 12/31/21 09:25 73 12 126/71 94 Room Air 12/31/21 09:15 67 12 129/79 96 Room Air 12/31/21 09:05 74 15 123/72 99 Oxymask 12/31/21 08:56 36.3 C L 64 16 127/69 99 Oxymask 12/31/21 05:46 36.7 C 81 20 142/87 H 97 Room Air O2 Flow Rate 12/31/21 11:00 12/31/21 10:30 12/31/21 10:00 12/31/21 09:35 12/31/21 09:25 12/31/21 09:15 12/31/21 09:05 5 12/31/21 08:56 5 12/31/21 05:46 Pain Intensity Back: Pain Intensity: 3 Transfer of Care Handoff Completed per policy Notes Mental Status: alert / awake / arousable Patient Amnestic to Procedure: Yes Nausea / Vomiting: adequately controlled Pain: adequately controlled Airway Patency, RR, SpO2: stable & adequate BP & HR: stable & adequate Hydration State: stable & adequate Anesthetic Complications: no major complications apparent
[2021-12-31] MEDS: oxyCODONE HCL IR 5 MG TAB (IMMEDIATE RELEASE) PO PRN (14:55)
[2021-12-31] MEDS: ACETAMINOPHEN 500 MG TAB PO SCH ×2 (14:56→20:17)
[2021-12-31] MEDS: DOCUSATE SODIUM 100 MG CAP PO SCH (20:16)
[2021-12-31] MEDS ORDERED: DULoxetine HCL 30 MG CAP PO SCH (21:00)
[2021-12-31] MEDS ORDERED: SENNA 8.6 MG TAB PO SCH (21:00)
[2022-01-01] MEDS: ACETAMINOPHEN 500 MG TAB PO SCH (06:09)
[2022-01-01] MEDS: LEVOTHYROXINE SODIUM 200 MCG TABLET PO SCH (06:09)
[2022-01-01] MEDS: oxyCODONE HCL IR 5 MG TAB (IMMEDIATE RELEASE) PO PRN (06:12)
[2022-01-01 06:42] LABS: Hematocrit (blood only) 35.1 % (40.1-51.0); Hemoglobin 12.1 g/dl (14.0-18.0); Mean Corpuscular Hemoglobin 31.6 pg (25.0-34.0); Mean Corpuscular Hgb Conc 34.5 g/dL (32.0-36.0); Mean Corpuscular Volume 91.6 fL (80.0-100.0); Mean Platelet Volume 9.7 fL (9.4-12.4); Platelet Count 152 K/uL (130-400); RDW Standard Deviation 42.9 fL (36.4-46.3); Red Blood Count 3.83 M/uL (4.63-6.08); White Blood Count 11.34 K/ul (4.8-10.8)
[2022-01-01 07:01] LABS: BUN Creatinine Ratio 18.6 (10-20); Calcium 8.5 mg/dl (8.5-10.1); Creatinine Clr Calc Pharmacy 81.1 ml/min; Est GFR (African American) 89.4 ml/min; Est GFR (Non-African American) 77.1 ml/min; Potassium 4.2 mmol/L (3.5-5.1)
[2022-01-01] MEDS ORDERED: dexAMETHasone 4 MG TAB PO SCH (08:00)
[2022-01-01] MEDS: DOCUSATE SODIUM 100 MG CAP PO SCH (08:02)
[2022-01-01] MEDS: PROPRANOLOL HCL LA 80 MG CAPCR PO SCH (08:03)
[2022-01-01] MEDS: ROSUVASTATIN CALCIUM 20 MG TAB PO SCH (08:03)
[2022-01-01] MEDS: DULoxetine HCL 30 MG CAP PO SCH (08:03)
[2022-01-01] MEDS: CHOLECALCIFEROL 1,000 UNITS 25 MCG TAB PO SCH (08:03)
[2022-01-01] MEDS: GABAPENTIN 300 MG CAP PO SCH (08:03)
[2022-01-01] MEDS: lisinopril 20 MG TAB PO SCH (08:03)
[2022-01-01] MEDS: busPIRone 5 MG TAB PO SCH (08:03)
[2022-01-01 08:13] VITALS: TEMP 98.4; O2SAT 90
--- NOTE | 2022-01-01 08:48 | Progress Notes ---
DATE OF SERVICE: 12/31/2021 SUBJECTIVE: Postop check status post left total knee replacement, doing well, sitting up in bed comf ortably. Denies chest pain, shortness of breath, fever, chills, nausea, vomiting or headache. OBJECTIVE: Vital signs stable. He is afebrile. Neurovascular check of femoral sciatic nerve is normal. Wound dressing is clean, dry, and intact. LABORATORY DATA: AM labs are excellent. Hematocrit is 35, glucose 128. Electrolytes are good. ASSESSMENT AND PLAN: Doing well status post left total knee replacement. Discharged to home today. Dressing changed today. Start Eliquis later today. Follow up in 2 weeks for staple removal. Empha sized the need for exercises including range of motion 0-90 degrees. Weightbearing as tolerated. Job ID: [id number]
[2022-01-01] MEDS ORDERED: APIXABAN 5 MG TABLET PO SCH (09:00)
[2022-01-01 10:25] VITALS: BP 126/80; PULSE 82
== END 2022-01-01 11:07 | disposition home health service (06) ==
LOC: 3E 05:08 → ASU 05:08
DX: Z79.890 Hormone replacement therapy; Z87.891 Personal history of nicotine dependence; Z88.1 Allergy status to other antibiotic agents; M17.12 Unilateral primary osteoarthritis, left knee; Z79.01 Long term (current) use of anticoagulants; Z79.899 Other long term (current) drug therapy; M21.162 Varus deformity, not elsewhere classified, left knee

== ENCOUNTER 2022-04-11 21:15 | Observation (INO) ==
[2022-04-11 21:49] LABS: Basophils # (auto) 0.08 K/uL (0-0.2); Basophils % (auto) 0.9 %; Eosinophils # (auto) 0.33 K/uL (0-0.50); Eosinophils % (auto) 3.7 %; Hematocrit (blood only) 45.5 % (40.1-51.0); Hemoglobin 15.8 g/dl (14.0-18.0); Immature Granulocytes # (auto) 0.03 K/uL (0.00-0.02); Immature Granulocytes % (auto) 0.3 %; Lymphocytes % (auto) 19.1 %; Mean Corpuscular Hemoglobin 30.7 pg (25.0-34.0); Mean Corpuscular Hgb Conc 34.7 g/dL (32.0-36.0); Mean Corpuscular Volume 88.5 fL (80.0-100.0); Mean Platelet Volume 9.2 fL (9.4-12.4); Monocytes % (auto) 7.9 %; Neutrophils # (auto) 6.07 K/uL (1.4-6.5); Neutrophils % (auto) 68.1 %; Platelet Count 223 K/uL (130-400); RDW Coefficient of Variation 12.5 % (11.5-14.5); RDW Standard Deviation 40.8 fL (36.4-46.3); Red Blood Count 5.14 M/uL (4.63-6.08); White Blood Count 8.91 K/ul (4.8-10.8)
--- NOTE | 2022-04-11 22:12 | Emergency Department Note ---
Impression & Plan SVT (supraventricular tachycardia), Syncope, Dizziness ED Provider Note NAME: PINA LARA AGE: 71 SEX: M : 1950 ARRIVES VIA: Walk-In INFORMANT: [Patient][, ] ED PROVIDER(S): [Ascencion Tirado MD] Chief Complaint: Palpitations, lightheadedness, syncope HPI: Patient presents due to concern for dizziness and lightheadedness and associated palpitations. The patient did also have some mild chest tightness which is since resolved. Patient did have an episode of syncope that was several seconds in duration. The patient denies any head or neck pain. Patient states that he was seeing "stars" and states that it was somewhat positional. The patient does take a THC containing edible for chronic back pain which she did take this evening. The patient had stopped his propranolol that he had been taking about 6 days prior. The patient does have a known history of A. fib. The patient did not have any head strike at the time that he had passed out. The patient denies any numbness tingling or focal weakness. Patient does follow with Dr. Gutierres. Patient feels though that he has been eating and drinking normally. The patient denies any tobacco alcohol or drug use with exception of the THC that he takes for his back pain. ROS: See HPI for pertinent positives and negatives. A total of 10 systems were reviewed and otherwise negative. Past medical history: See below Surgical history: See below Social history: See below Physical Exam: GENERAL: NAD, [wearing a mask,] non-toxic. EYE EXAM: Normal conjunctiva. PERRL, no anisocoria and EOM's grossly intact w/o pain. NECK: Supple, no nuchal rigidity, no adenopathy, non-tender. No signs of meningismus. FROM of the neck with good chin to chest and neck extension. No stridor. LUNGS: Clear to auscultation. Normal chest wall mechanics. HEART: Tachycardic and regular, no MRG. ABDOMEN: Abdomen soft, non-tender, normo-active bowel sounds, no masses, no rebound or guarding. BACK: No CVA TTP. SKIN: No rashes and no bruising. UPPER EXTREMITIES: Upper extremities are grossly normal. LOWER EXTREMITIES: Slight left greater than right lower extremity swelling, well-healed left anterior knee incisional scar NEURO EXAM: A&O x3, cranial nerves II-XII grossly intact, normal speech, moves all 4 extremities. Differential diagnoses: Vasovagal event, dehydration, infection, hypoglycemia, electrolyte abnormalities, cardiac sources, intracerebral event, pulmonary embolism, seizure, toxicologic, neurologic, as well as other pathologies. Course: Patient was seen and evaluated the bedside. Full history physical exam was performed. EKG interpreted by me Sinus tachycardia, rate of 111, normal intervals normal axis no ST elevations. EG interpreted by SVT, rate of 179, normal QRS normal axis. Repeat EKG interpreted by me sinus tachycardia, rate of 101, normal intervals normal axis. No ST elevations. TWI lead 3. Q-wave in V6. TWI and Q wave new from earlier EKG. Imaging Studies: See Below Cardiac monitoring: An order was placed for continuous cardiac monitoring. The monitor shows a rate of 87 with sinus rhythm. MDM: Patient presented due to concern for palpitations dizziness and syncope. Blood work is obtained. The patient's EKG does not show any obvious arrhythmia but sinus tachycardia. IV fluids were ordered. I was called to the room as the patient did have an elevated heart rate and was in an SVT. Vagal maneuvers were attempted as the patient was trialed by trying to breathe into a 10 cc syringe and then the head of the bed was lowered as his legs were lifted. I did asked the patient prior to doing so that given his history of back problems that he would be able to do this. The patient said that he would. The patient did break his SVT it resumed but then broke again. Patient was pressure bagged his fluids and I did order dose of Lopressor. Given this episode patient likely has had intermittent SVT today. The patient does not complain of any chest pains or shortness of breath. The patient's I did speak the on-call hospitalist Dr. Ring. Patient did have mild changes on his EKG with the patient is not complaining of any chest pains or shortness of breath. I did discuss this with the hospitalist and they will continue to trend his enzymes and follow. Past Med/Surg History Medical History Anxiety Asthma No symptoms x 15 years Well controlled Atrial fibrillation Dx 2 years ago Reason for Eliquis; follows with [facility]/Dr. Gutierres Cancer Skin cancer - s/p excision Chronic back pain Degenerative disc disease, lumbar Depression Essential tremor Hands - reason for propranolol History of dizziness 10/2020- CVA ruled out at [facility] evaluation > felt r/t vertigo/BPPV. Per patient, no further issues- was told possibly r/t post herpetic neuralgia. History of shingles Hyperlipidemia Hypertension Hypothyroidism Lumbar radiculopathy Malignant neoplasm of prostate s/p radical prostatectomy 2009 (no chemo or XRT) Post herpetic neuralgia Sacroiliitis Sleep apnea CPAP (compliant) Spinal cord stimulator status Chronic back pain Medtr[employer] > OR made aware Surgical History Fusion of spine C4-C7 > limited ROM side to side and with extension per pt History of appendectomy History of cataract surgery R/L History of herniorrhaphy History of penile implant History of prostatectomy History of toe surgery B/L great toe Hx of colonoscopy S/P insertion of spinal cord stimulator Insertion of SCS (10/22/20): MAC at [facility] Family History Father Prostate cancer Brother Prostate cancer Diabetes Other No family history of adverse response to anesthesia Denies family history of Ovarian cancer Myocardial infarction Breast cancer Colorectal cancer Social History Smoking Status: Never smoker Tobacco Type: Cigarettes Age Started Using Tobacco: 10; Age Quit Using Tobacco: 33; packs per day: 1; Second Hand Exposure: No; Hx Alcohol Use: Yes ("stopped drinking one year ago") Alcohol type: wine Alcohol Intake Frequency: Monthly or Less Hx Substance Use: Yes (medical marijuana) Last Used Substance: Days (ago) Last Used Substance Other:: 12/08/21 Substance Use Type Other:: medical card Preferred Language: Ukrainian Communication Ability: Effective Visual Impairment: No Limitations Hearing Ability: Normal 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 Beliefs That Will Affect Care: None marital status: Current Living Situation: Spouse current occupational status: retired Feels Safe at Home: Yes Childhood Exposure to Second-Hand Smoke: Yes Dental Care, Regularly: Yes Physical Activity Frequency: 3-4 Times per Week Seatbelt Use: always Sunscreen Use: Yes Assistive Devices: Walker Allergies Allergies Allergy/AdvReac Type Severity Reaction Status Date / Time clindamycin Allergy Severe Rash Verified 04/11/22 22:16 Cephalosporins Allergy Rash Verified 04/11/22 22:16 levofloxacin Allergy Rash Verified 04/11/22 22:16 Home Meds Home Medications Medication Instructions Recorded Confirmed levothyroxine 200 mcg tablet 200 mcg PO QAM 01/10/18 04/11/22 (Synthroid) duloxetine 30 mg capsule,delayed 30 mg PO TID 04/16/18 04/11/22 release (Cymbalta) propranolol 80 mg capsule,24 80 mg PO QAM 07/18/19 04/11/22 hr,extended release (Inderal LA) rosuvastatin 40 mg tablet 40 mg PO QAM 10/02/20 04/11/22 lorazepam 0.5 mg tablet 0.5 mg PO BID PRN Anxiety 10/27/20 04/11/22 multivitamin 1 tab PO QAM 08/06/21 04/11/22 buspirone 5 mg tablet 5 mg PO TID 11/12/21 04/11/22 HEEL LIFTS 12/11/21 04/11/22 cholecalciferol (vitamin D3) 25 25 mcg PO QAM 12/11/21 04/11/22 mcg (1,000 unit) tablet (Vitamin D3) testosterone 20.25 mg/1.25 gram 2 pump transdermal QAM 12/11/21 04/11/22 (1.62 %) transdermal gel pump (AndroGel) gabapentin 300 mg capsule 300 mg PO TID 04/11/22 04/11/22 lisinopril 30 mg tablet 30 mg PO QAM 04/11/22 04/11/22 Previous Rx's Medication Instructions Recorded apixaban 5 mg tablet (Eliquis) 5 mg PO BID #180 tabs 12/25/20 docusate sodium 100 mg capsule 100 mg PO BID #30 caps 01/01/22 oxycodone-acetaminophen 5 mg-325 1 - 2 tab PO Q4H PRN pain #24 tabs 01/01/22 mg tablet (Percocet) Results & Data (ED) Vital Signs Vital Signs - 24 hr 04/11/22 21:17 04/11/22 23:04 04/11/22 23:07 Temperature 36.6 C Temperature Source Temporal Artery Scan Pulse Rate 128 H 105 H Pulse Rate [Apical] Pulse Rate from SpO2 Sensor 104 H Pulse Rhythm [Apical] Pulse Strength [Apical] Respiratory Rate 20 14 Respiratory Effort / Characteristics Non-Labored Spontaneous Respiratory Depth Normal Respiratory Pattern Blood Pressure 111/71 Blood Pressure [Left Arm] Blood Pressure Mean 84 Blood Pressure Mean [Left Arm] Blood Pressure Position Sitting Blood Pressure Position [Left Arm] Pulse Oximetry 97 94 Oxygen Delivery Method Room Air Room Air Sepsis Recent Fever Within 48 Hours No Sepsis New/Unexplained Change in Mental Status N/A Sepsis Action Taken by Nursing No Action Required 04/11/22 23:30 04/11/22 23:41 04/11/22 23:46 Temperature Temperature Source Pulse Rate 174 H 101 H Pulse Rate [Apical] 96 H Pulse Rate from SpO2 Sensor 174 H Pulse Rhythm [Apical] Regular Pulse Strength [Apical] Normal Respiratory Rate 22 17 Respiratory Effort / Characteristics Non-Labored Spontaneous Respiratory Depth Normal Respiratory Pattern Regular Blood Pressure 123/78 Blood Pressure [Left Arm] 123/78 Blood Pressure Mean Blood Pressure Mean [Left Arm] 93 Blood Pressure Position Blood Pressure Position [Left Arm] Lying Pulse Oximetry 97 95 Oxygen Delivery Method Room Air Sepsis Recent Fever Within 48 Hours Sepsis New/Unexplained Change in Mental Status Sepsis Action Taken by Nursing 04/11/22 23:40 04/11/22 23:41 04/11/22 23:41 Temperature Temperature Source Pulse Rate 97 H Pulse Rate [Apical] Pulse Rate from SpO2 Sensor 98 H 101 H Pulse Rhythm [Apical] Pulse Strength [Apical] Respiratory Rate 18 16 Respiratory Effort / Characteristics Respiratory Depth Respiratory Pattern Blood Pressure 123/78 Blood Pressure [Left Arm] Blood Pressure Mean 93 Blood Pressure Mean [Left Arm] Blood Pressure Position Blood Pressure Position [Left Arm] Pulse Oximetry 95 96 Oxygen Delivery Method Sepsis Recent Fever Within 48 Hours Sepsis New/Unexplained Change in Mental Status Sepsis Action Taken by Nursing 04/11/22 23:47 04/11/22 23:47 04/11/22 23:50 Temperature Temperature Source Pulse Rate 95 H 94 H Pulse Rate [Apical] Pulse Rate from SpO2 Sensor 94 H 96 H Pulse Rhythm [Apical] Pulse Strength [Apical] Respiratory Rate 15 17 Respiratory Effort / Characteristics Respiratory Depth Respiratory Pattern Blood Pressure 118/77 Blood Pressure [Left Arm] Blood Pressure Mean 90 Blood Pressure Mean [Left Arm] Blood Pressure Position Blood Pressure Position [Left Arm] Pulse Oximetry 94 96 Oxygen Delivery Method Sepsis Recent Fever Within 48 Hours Sepsis New/Unexplained Change in Mental Status Sepsis Action Taken by Nursing 04/12/22 00:00 04/12/22 00:10 04/12/22 00:20 Temperature Temperature Source Pulse Rate 97 H 95 H 90 Pulse Rate [Apical] Pulse Rate from SpO2 Sensor 97 H 96 H 92 H Pulse Rhythm [Apical] Pulse Strength [Apical] Respiratory Rate 16 16 14 Respiratory Effort / Characteristics Respiratory Depth Respiratory Pattern Blood Pressure Blood Pressure [Left Arm] Blood Pressure Mean Blood Pressure Mean [Left Arm] Blood Pressure Position Blood Pressure Position [Left Arm] Pulse Oximetry 94 96 94 Oxygen Delivery Method Sepsis Recent Fever Within 48 Hours Sepsis New/Unexplained Change in Mental Status Sepsis Action Taken by Nursing 04/12/22 00:30 04/12/22 00:40 04/12/22 00:50 Temperature Temperature Source Pulse Rate 90 95 H 88 Pulse Rate [Apical] Pulse Rate from SpO2 Sensor 92 H 93 H 90 Pulse Rhythm [Apical] Pulse Strength [Apical] Respiratory Rate 18 16 16 Respiratory Effort / Characteristics Respiratory Depth Respiratory Pattern Blood Pressure Blood Pressure [Left Arm] Blood Pressure Mean Blood Pressure Mean [Left Arm] Blood Pressure Position Blood Pressure Position [Left Arm] Pulse Oximetry 94 95 96 Oxygen Delivery Method Sepsis Recent Fever Within 48 Hours Sepsis New/Unexplained Change in Mental Status Sepsis Action Taken by Nursing 04/12/22 01:05 04/12/22 01:00 04/12/22 01:10 Temperature Temperature Source Pulse Rate 95 H 97 H Pulse Rate [Apical] 97 H Pulse Rate from SpO2 Sensor 98 H 97 H Pulse Rhythm [Apical] Regular Pulse Strength [Apical] Normal Respiratory Rate 18 25 H 25 H Respiratory Effort / Characteristics Non-Labored Spontaneous Respiratory Depth Normal Respiratory Pattern Regular Blood Pressure Blood Pressure [Left Arm] 118/77 Blood Pressure Mean Blood Pressure Mean [Left Arm] 90 Blood Pressure Position Blood Pressure Position [Left Arm] Lying Pulse Oximetry 96 97 97 Oxygen Delivery Method Room Air Sepsis Recent Fever Within 48 Hours Sepsis New/Unexplained Change in Mental Status Sepsis Action Taken by Nursing 04/12/22 01:20 04/12/22 01:30 04/12/22 01:40 Temperature Temperature Source Pulse Rate 94 H 88 93 H Pulse Rate [Apical] Pulse Rate from SpO2 Sensor 97 H 87 90 Pulse Rhythm [Apical] Pulse Strength [Apical] Respiratory Rate 17 13 10 L Respiratory Effort / Characteristics Respiratory Depth Respiratory Pattern Blood Pressure Blood Pressure [Left Arm] Blood Pressure Mean Blood Pressure Mean [Left Arm] Blood Pressure Position Blood Pressure Position [Left Arm] Pulse Oximetry 97 97 96 Oxygen Delivery Method Sepsis Recent Fever Within 48 Hours Sepsis New/Unexplained Change in Mental Status Sepsis Action Taken by Nursing 04/12/22 01:49 Temperature Temperature Source Pulse Rate 85 Pulse Rate [Apical] Pulse Rate from SpO2 Sensor Pulse Rhythm [Apical] Pulse Strength [Apical] Respiratory Rate 18 Respiratory Effort / Characteristics Respiratory Depth Respiratory Pattern Blood Pressure 118/77 Blood Pressure [Left Arm] Blood Pressure Mean Blood Pressure Mean [Left Arm] Blood Pressure Position Blood Pressure Position [Left Arm] Pulse Oximetry 100 Oxygen Delivery Method Room Air Sepsis Recent Fever Within 48 Hours Sepsis New/Unexplained Change in Mental Status Sepsis Action Taken by Jail Medications Current Medication List: was personally reviewed by me Laboratory Data Attestation: I reviewed the patient's lab results. Result diagrams: 04/11/22 21:31 04/11/22 21:31 Lab Results 04/11/22 04/11/22 04/11/22 Range/Units 21:31 21:31 21:31 WBC 8.91 (4.8-10.8) K/ul RBC 5.14 (4.63-6.08) M/uL Hgb 15.8 (14.0-18.0) g/dl Hct 45.5 (40.1-51.0) % MCV 88.5 (80.0-100.0) fL MCH 30.7 (25.0-34.0) pg MCHC 34.7 (32.0-36.0) g/dL RDW Std Deviation 40.8 (36.4-46.3) fL RDW Coeff of Edi 12.5 (11.5-14.5) % Plt Count 223 (130-400) K/uL MPV 9.2 L (9.4-12.4) fL Immature Gran % (Auto) 0.3 % Neut % (Auto) 68.1 % Lymph % (Auto) 19.1 % [place] % (Auto) 7.9 % Eos % (Auto) 3.7 % Baso % (Auto) 0.9 % Neut # (Auto) 6.07 (1.4-6.5) K/uL Lymph # (Auto) 1.70 (1.2-3.4) K/uL [place] # (Auto) 0.70 (0.24-0.82) K/uL Eos # (Auto) 0.33 (0-0.50) K/uL Baso # (Auto) 0.08 (0-0.2) K/uL Immature Gran # (Auto) 0.03 H (0.00-0.02) K/uL PT 10.9 (9.0-12.0) Seconds INR 1.0 (0.9-1.1) APTT 30.7 (21.0-31.0) Seconds PTT Ratio 1.1 Sodium 139 (136-145) mmol/L Potassium 4.1 (3.5-5.1) mmol/L Chloride 104 (98-107) mmol/L Carbon Dioxide 27 (21-32) mmol/L Anion Gap 8 (3-11) BUN 23 (6-23) mg/dl Creatinine 1.23 (0.6-1.4) mg/dl Est Cr Clr Drug Dosing 63.9 ml/min Est GFR ( Amer) 67.1 ml/min Est GFR (Non-Af Amer) 57.9 ml/min BUN/Creatinine Ratio 18.7 (10-20) Glucose 89 (70-99(Fasting)) mg/dl Calcium 9.9 (8.5-10.1) mg/dl Magnesium (1.7-2.4) mg/dl Total Bilirubin 0.4 (0.2-1.0) mg/dl AST 15 (13-39) U/L ALT 9 (7-52) U/L Alkaline Phosphatase 78 (34-104) U/L Troponin I High Sens 10.3 (0-20) pg/ml Total Protein 7.2 (6.0-8.3) gm/dl Albumin 4.1 (3.4-5.0) gm/dl Globulin 3.1 (2.5-4.0) gm/dl Albumin/Globulin Ratio 1.3 (0.9-2) SARS-CoV-2, RNA, NAAT (NEGATIVE) 04/11/22 04/11/22 Range/Units 21:31 23:43 WBC (4.8-10.8) K/ul RBC (4.63-6.08) M/uL Hgb (14.0-18.0) g/dl Hct (40.1-51.0) % MCV (80.0-100.0) fL MCH (25.0-34.0) pg MCHC (32.0-36.0) g/dL RDW Std Deviation (36.4-46.3) fL RDW Coeff of Edi (11.5-14.5) % Plt Count (130-400) K/uL MPV (9.4-12.4) fL Immature Gran % (Auto) % Neut % (Auto) % Lymph % (Auto) % [place] % (Auto) % Eos % (Auto) % Baso % (Auto) % Neut # (Auto) (1.4-6.5) K/uL Lymph # (Auto) (1.2-3.4) K/uL [place] # (Auto) (0.24-0.82) K/uL Eos # (Auto) (0-0.50) K/uL Baso # (Auto) (0-0.2) K/uL Immature Gran # (Auto) (0.00-0.02) K/uL PT (9.0-12.0) Seconds INR (0.9-1.1) APTT (21.0-31.0) Seconds PTT Ratio Sodium (136-145) mmol/L Potassium (3.5-5.1) mmol/L Chloride (98-107) mmol/L Carbon Dioxide (21-32) mmol/L Anion Gap (3-11) BUN (6-23) mg/dl Creatinine (0.6-1.4) mg/dl Est Cr Clr Drug Dosing ml/min Est GFR ( Amer) ml/min Est GFR (Non-Af Amer) ml/min BUN/Creatinine Ratio (10-20) Glucose (70-99(Fasting)) mg/dl Calcium (8.5-10.1) mg/dl Magnesium 2.2 (1.7-2.4) mg/dl Total Bilirubin (0.2-1.0) mg/dl AST (13-39) U/L ALT (7-52) U/L Alkaline Phosphatase (34-104) U/L Troponin I High Sens (0-20) pg/ml Total Protein (6.0-8.3) gm/dl Albumin (3.4-5.0) gm/dl Globulin (2.5-4.0) gm/dl Albumin/Globulin Ratio (0.9-2) SARS-CoV-2, RNA, NAAT NEGATIVE (NEGATIVE) Administered Medications Discontinued Medications Sodium Chloride (Nss 1000ml) 1,000 mls @ 999 mls/hr IV .[id number] ONE Stop: 04/11/22 23:31 Last Infusion: 04/12/22 00:10 Dose: 0 mls/hr Documented By: Admin: 04/11/22 22:57 Dose: 999 mls/hr Documented By: [id number] Metoprolol Tartrate (Metoprolol Tartrate 1 Mg/Ml Vial) 5 mg IV NOW STA Stop: 04/11/22 23:37 Last Admin: 04/11/22 23:41 Dose: 5 mg Documented By: ERWIN Imaging Data Radiologist's Impression: Chest X-Ray 04/11/22 21:23 SINGLE VIEW CHEST CLINICAL HISTORY: Atypical chest pain. FINDINGS: 2 AP, portable, upright chest radiographs compared to study dated 12/22/2021. The heart is enlarged. The pulmonary vasculature is noncongested. The lungs and pleural spaces are clear noting mild bibasilar scarring/atelectasis. No pneumothorax is seen. The skeletal structures are osteopenic. The bony thorax is grossly intact. Intrathecal leads project over the thoracic spine. IMPRESSION: Cardiomegaly with no active disease in the chest. ACT 112: Negative or not required by law. Electronically signed by: Gus Palacio M.D. 04/11/2022 10:52 PM Discharge Plan Visit Data Chief Complaint: Cardiac Assessment Stated Complaint: CHEST PAIN, COUGH, FAINTED TWICE. A-FIB ED Provider: Ascencion Tirado Patient Disposition: Admitted As Inpatient Prescriptions Prescriptions: No Action propranolol [Inderal LA] 80 mg capsule,extended release 24 hr 80 mg PO QAM Eliquis 5 mg tablet 5 mg PO BID Qty: 180 3RF multivitamin Tablet 1 tab PO QAM buspirone 5 mg tablet 5 mg PO TID levothyroxine [Synthroid] 200 mcg Tablet 200 mcg PO QAM duloxetine [Cymbalta] 30 mg Capsule,Delayed Release(Dr/Ec) 30 mg PO TID rosuvastatin 40 mg tablet 40 mg PO QAM lorazepam 0.5 mg tablet 0.5 mg PO BID PRN (Reason: Anxiety) cholecalciferol (vitamin D3) [Vitamin D3] 25 mcg (1,000 unit) Tablet 25 mcg PO QAM testosterone [AndroGel] 20.25 mg/1.25 gram (1.62 %) gel in metered-dose pump 2 pump TD QAM Rx Instructions: apply 1 pump amount over max area of EACH upper arm and shoulder (DME) HEEL LIFTS Misc See Rx Instructions .ROUTE UD Rx Instructions: Dispense 4mm heel lift, one 8mm, & one 10mm. wear 4mm heel lift in L foot x2wks, then replace w/ 8mm heel lift x2wks, then w/ 10mm heel lift docusate sodium 100 mg Capsule 100 mg PO BID Qty: 30 0RF Rx Instructions: over the counter; take while on pain medication; hold for loose stools oxycodone-acetaminophen [Percocet] 5-325 mg tablet 1 - 2 tab PO Q4H PRN (Reason: pain) Qty: 24 0RF Rx Instructions: 1 tablet for pain 1-5 2 tablets for pain 6-10 lisinopril 30 mg tablet 30 mg PO QAM gabapentin 300 mg capsule 300 mg PO TID
[2022-04-11 22:22] LABS: Troponin I High Sensitivity 10.3 pg/ml (0-20)
[2022-04-11 22:24] LABS: Albumin Globulin Ratio 1.3 (0.9-2); Albumin Level 4.1 gm/dl (3.4-5.0); BUN Creatinine Ratio 18.7 (10-20); Bilirubin,Total 0.4 mg/dl (0.2-1.0); Calcium 9.9 mg/dl (8.5-10.1); Creatinine Clr Calc Pharmacy 63.9 ml/min; Est GFR (African American) 67.1 ml/min; Est GFR (Non-African American) 57.9 ml/min; Globulin 3.1 gm/dl (2.5-4.0); Potassium 4.1 mmol/L (3.5-5.1); Total Protein 7.2 gm/dl (6.0-8.3)
[2022-04-11] MEDS ORDERED: SODIUM CHLORIDE 0.9% 1000ML 1,000 ML IV ONE (22:31)
[2022-04-11 22:36] LABS: Partial Thromboplastin Ratio 1.1; Partial Thromboplastin Time 30.7 Seconds (21.0-31.0); Prothrombin Time 10.9 Seconds (9.0-12.0)
--- NOTE | 2022-04-11 22:55 | XRay Report ---
SINGLE VIEW CHEST CLINICAL HISTORY: Atypical chest pain. FINDINGS: 2 AP, portable, upright chest radiographs compared to study dated 12/22/2021. The heart is en larged. The pulmonary vasculature is noncongested. The lungs and pleural spaces are clear noting mild bibasilar scarring/atelectasis. No pneumothorax is seen. The skeletal structures are osteopenic. The bony thorax is grossly intact. Intrathecal leads project over the thoracic spine. IMPRESSION: Cardiomegaly with no active disease in the chest. ACT 112: Negative or not required by law. Electronically signed by: Gus Palacio M.D. 04/11/2022 10:52 PM
[2022-04-11] MEDS ORDERED: METOPROLOL TARTRATE 1 MG/ML VIAL IV STA (23:36)
[2022-04-12] MEDS ORDERED: ACETAMINOPHEN 325 MG TAB PO PRN (00:46)
--- NOTE | 2022-04-12 00:46 | History & Physical Report ---
Date of Service April 12, 2022 Assessment & Plan (1) SVT (supraventricular tachycardia): Plan: 71-year-old male with history of hypertension, hyperlipidemia, atrial fibrillation, alcohol use, status post insertion of spinal cord stimulator, vertigo, vertebral artery stenosis, hypogonadotropic hypogonadism who presented to [facility] for evaluation of dizziness and syncopal episode in the setting of recent propranolol discontinuation, tinnitus, and ongoing THC use. He did develop a monitored episode of NSVT while in the ED that terminated with vagal maneuvers. NSVT - Episode of NSVT appreciated in the ED that broke with vagal maneuvers alone - see ECG - Noted in the setting of recurrent episodes of head "fuzziness" over the past few days, and occasionally over the last few months - Suspect threshold was lowered by recent d/c of propranolol, but also from ongoing THC use - Resume propranolol as scheduled - TTE ordered for while he is here - Cardiology consulted as above - Monitor on telemetry and maintain lytes, will also check TSH (2) Syncope: Plan: Syncope - In the setting of multiday+ history of transient periods of non-vertiginous lightheadedness that have increased in frequency since self-discontinuation of propranolol and ongoing THC use. The episode that caused syncope was vertiginous. - Work-up as follows: - Sinus tachycardia on arrival with subsequent development of NSVT that broke with vagal maneuvers - Previous neurovascular imaging reviewed from 2020 - suspected bilateral vertebral aa stenosis, mild R MCA stenosis; carotid artery duplex w/o significant stenosis - Lytes, CBC normal ; TSH pending - Check TTE - Check orthostatics - Primary concern is neurocardiogenic etiology with SVT, however THC may be contributory as well. Orthostasis also considered - though BPs have been good, no overt signs of hypovolemia. Lower suspicion for seizures or CVA. - Consult cardiology: appreciate insight, need for event monitoring or Holter after leaving the hospital for further care planning - Low threshold for repeat neurovascular imaging if new symptoms develop - Fall precautions ordered (3) Anxiety and depression: Plan: Anxiety and Depression - Continue Cymbalta, BusPar - Can restart Ativan PRN once clinical picture stabilizes (4) Hypertension: Plan: HTN / HLD - Will continue lisinopril for now - no reported HoTN - Continue propranolol - Continue rosuvastatin (5) Chronic back pain: Plan: Chronic LBP - Status post spinal cord stimulator placement - Continue gabapentin, Percocet PRN (6) Atrial fibrillation: Plan: Atrial Fibrillation - Continue propranolol (on this primarily for tremor), Eliquis - Sinus rhythm on arrival (7) Essential tremor: Plan: Essential Tremor - Continue propranolol (8) Tinnitus: Plan: Bilateral Tinnitus - Reporting >1 year of bilateral tinnitus not associated with subjective hearing changes or regular vertigo (though syncopal episode was vertiginous?) - Neuroimaging from Summer 2020 reviewed, as above -- consider repeating if new neurologic symptoms / worsening while here - Will require RX review and audiology evaluation as outpatient Plan Code: Full Dispo: MST Diet: Regular PPX: Eliquis for AF History of Present Illness Primary Care Provider: Manuel Lucio 71-year-old male with history of hypertension, hyperlipidemia, atrial fibrillation, alcohol use, status post insertion of spinal cord stimulator, vertigo, vertebral artery stenosis, hypogonadotropic hypogonadism who presented to [facility] for evaluation of dizziness and syncopal episode. Blayne tells me that about 6 or 7 days ago, he was looking at medications that might cause tinnitus; he has struggled with this for over a year bilaterally, but denies hearing angel ges or frequent vertigo. He found that propranolol can sometimes cause tinnitus. As result, he self discontinued this medication. He says that over the last couple days, he did get episodes where his head felt "fuzzy "and where he would see stars. There were no clear triggers to what brought them on (like standing up, using the commode, sudden change in position).On occasion, he would also say that his chest felt warm and that his heartbeat felt fastbut not always. No chest pain or shortness of breath. Around 4 PM today, he took a 10 mg THC edible (which she normally does for his lower backhe has been taking these for about 2 years); shortly thereafter he began experiencing the episodes aforementioned. They progressively became more intense, to a point that around 7 PM, his vision nearly completely went black and he had to grab onto something to keep his balance. During this instance, he felt like the room was spinning. He tells me he lost consciousness for maybe 2 to 3 seconds, but did not hit his head, have tongue biting, or loss of bowel/bladder control. No unilateral disturbances or sensation changes. He says that he is used THC edibles for the last 2 years to help with his low back pain; he feels that it is helped. However, he has wondered for the last several months whether or not they sometimes precipitate lightheaded episodes. He consumes approximately 10mg daily. He denies alcohol use. He denies tobacco use. His medications were reviewed and include Eliquis 5 mg twice daily, buspirone, vitamin D, docusate sodium, duloxetine 30 mg 3 times daily, gabapentin 300 mg 3 times daily, levothyroxine, lisinopril 30 mg every morning, lorazepam 0.5 mg twice daily, Percocet, propranolol 80 mg every morning, rosuvastatin 40 mg, testosterone. On arrival in the ED, patient found to have heart rate 128, with otherwise normal vital signs. Labs reviewed include largely normal CBC, normal coagulation studies, normal chemistries, negative COVID. CXR with cardiomegaly but no active processes. Shortly after arrival in the ED, patient did develop supraventricular tachycardia which terminated with use of vagal maneuvers. He subsequently converted back into normal sinus rhythm with sinus tachycardia.He was given metoprolol and 1 L of fluids. ---- This documentation was created utilizing dictation software. As such, syntax, grammatical, and word-choice errors may be present. Notes are screened prior to submission in an attempt to reduce these errors. If there are any questions or concerns, please contact the author directly for clarification. Allergies Allergy/AdvReac Type Severity Reaction Status Date / Time clindamycin Allergy Severe Rash Verified 04/11/22 22:16 Cephalosporins Allergy Rash Verified 04/11/22 22:16 levofloxacin Allergy Rash Verified 04/11/22 22:16 Home Medications Medication Instructions Recorded Confirmed Type levothyroxine 200 mcg tablet 200 mcg PO QAM 01/10/18 04/11/22 History (Synthroid) duloxetine 30 mg capsule,delayed 30 mg PO TID 04/16/18 04/11/22 History release (Cymbalta) propranolol 80 mg capsule,24 80 mg PO QAM 07/18/19 04/11/22 History hr,extended release (Inderal LA) rosuvastatin 40 mg tablet 40 mg PO QAM 10/02/20 04/11/22 History lorazepam 0.5 mg tablet 0.5 mg PO BID PRN Anxiety 10/27/20 04/11/22 History apixaban 5 mg tablet (Eliquis) 5 mg PO BID #180 tabs 12/25/20 04/11/22 Rx multivitamin 1 tab PO QAM 08/06/21 04/11/22 History buspirone 5 mg tablet 5 mg PO TID 11/12/21 04/11/22 History HEEL LIFTS 12/11/21 04/11/22 History cholecalciferol (vitamin D3) 25 25 mcg PO QAM 12/11/21 04/11/22 History mcg (1,000 unit) tablet (Vitamin D3) testosterone 20.25 mg/1.25 gram 2 pump transdermal QAM 12/11/21 04/11/22 History (1.62 %) transdermal gel pump (AndroGel) docusate sodium 100 mg capsule 100 mg PO BID #30 caps 01/01/22 04/11/22 Rx oxycodone-acetaminophen 5 mg-325 1 - 2 tab PO Q4H PRN pain #24 tabs 01/01/22 04/11/22 Rx mg tablet (Percocet) gabapentin 300 mg capsule 300 mg PO TID 04/11/22 04/11/22 History lisinopril 30 mg tablet 30 mg PO QAM 04/11/22 04/11/22 History Past Med/Surg History Medical History Anxiety Asthma No symptoms x 15 years Well controlled Atrial fibrillation Dx 2 years ago Reason for Eliquis; follows with [facility]/Dr. Gutierres Cancer Skin cancer - s/p excision Chronic back pain Degenerative disc disease, lumbar Depression Essential tremor Hands - reason for propranolol History of dizziness 10/2020- CVA ruled out at [facility] evaluation > felt r/t vertigo/BPPV. Per patient, no further issues- was told possibly r/t post herpetic neuralgia. History of shingles Hyperlipidemia Hypertension Hypothyroidism Lumbar radiculopathy Malignant neoplasm of prostate s/p radical prostatectomy 2009 (no chemo or XRT) Post herpetic neuralgia Sacroiliitis Sleep apnea CPAP (compliant) Spinal cord stimulator status Chronic back pain Medtronic > OR made aware Surgical History Fusion of spine C4-C7 > limited ROM side to side and with extension per pt History of appendectomy History of cataract surgery R/L History of herniorrhaphy History of penile implant History of prostatectomy History of toe surgery B/L great toe Hx of colonoscopy S/P insertion of spinal cord stimulator Insertion of SCS (10/22/20): MAC at [facility] Family History Father Prostate cancer Brother Prostate cancer Diabetes Other No family history of adverse response to anesthesia Denies family history of Ovarian cancer Myocardial infarction Breast cancer Colorectal cancer Social History Smoking Status: Former smoker Tobacco Type: Cigarettes Age Started Using Tobacco: 10; Age Quit Using Tobacco: 33; packs per day: 1; Second Hand Exposure: No; Hx Alcohol Use: No ("stopped drinking one year ago") Hx Substance Use: Yes (medical marijuana) Last Used Substance: Just Prior to Arrival Last Used Substance Other:: 04/11/22 Substance Use Type Other:: medical card Preferred Language: Arabic Communication Ability: Effective Visual Impairment: No Limitations Hearing Ability: Normal Lay Out Drafter Required: No Beliefs That Will Affect Care: None marital status: Current Living Situation: Spouse current occupational status: retired Feels Safe at Home: Yes Childhood Exposure to Second-Hand Smoke: Yes Dental Care, Regularly: Yes Physical Activity Frequency: 3-4 Times per Week Seatbelt Use: always Sunscreen Use: Yes Assistive Devices: CPAP and Glasses Review of Systems Review of Systems: as per HPI Physical Exam Physical Exam: General: 71-year old male who is alert, oriented, and appears in no acute distress. HEENT: NCAT. - Eyes - Sclera are white, anicteric, and without injection. - Mouth - MMM - Neck - supple, no appreciable JVD Cardiac: Normal rate and regular rhythm; S1 and S2 present with no murmurs, rubs, or gallops. Pulmonary: Good respiratory effort with symmetric expansion of the chest. No use of accessory muscles. Lungs were clear to auscultation bilaterally with no crackles or wheezes. Abdominal: Normoactive bowel sounds. Abdomen was soft, nondistended, and non- tender to palpation. Extremities: Upper and lower extremities are warm and well perfused. No peripheral edema in the lower extremities bilaterally Neuro: - Cranial Nerves: CN I, IX, XIII, and X - not assessed. II - PERRL. III/IV/ - EOMs WNL. No nystagmus. V - Facial sensation in tact in all three divisions; jaw opening WNL. VII - Patient is able to smile symmetrically and keep eyes close against resistance. IX - Soft palate raises equally and appropriately while saying "ah." XI - Patient is able to shrug shoulders against resistance. XII - patient is able to stick out tongue and deviate from [id number] appropriately. - Motor: UE - Finger, wrist, elbow, and shoulder strength is 5/5 bilaterally. LE - Hip, knee, and ankle strength is 5/5 bilaterally. - Sensation: UE and LE sensation to light touch is grossly intact bilaterally. Psych: Well-developed, well-nourished, appropriately dressed for occasion. Behavior is cooperative and appropriate. Affect is WNL. Insight is appropriate. Results & Data Results & Data ([facility]) Vital Signs (Past 12 Hours) Vital Signs Temp Pulse Pulse Resp BP BP Pulse Ox 04/11/22 23:46 96 H 17 123/78 95 04/11/22 23:41 101 H 123/78 04/11/22 23:30 174 H 22 97 04/11/22 23:07 105 H 14 94 04/11/22 23:04 04/11/22 21:17 36.6 C 128 H 20 111/71 97 O2 Del Method 04/11/22 23:46 Room Air 04/11/22 23:41 04/11/22 23:30 04/11/22 23:07 04/11/22 23:04 Room Air 04/11/22 21:17 Room Air Supervising Physician Co-Signing Physician Notes Attending addendum: I have physically seen this patient, have supervised the medical residents activities, and agree with the H&P unless as otherwise noted. Assessment and Plan: SVT- Nonsustained V. tach in ED that broke with vagal maneuvers Patient reports recurrent episodes of brain fogginess over the past few days Patient's propranolol was recently discontinued, which may be the cause Ongoing THC use may be a contributing factor as well Will resume his usual dosing of propranolol The patient will be admitted to telemetry for serial cardiac enzymes, serial EKG's, cardiac rhythm monitoring and a 2-D echocardiogram with Dopplers. Syncope- Admit to monitored bed to monitor for arrhythmia Concerning or guarding sinus tachycardia with nonsustained V. tach episode in the ED Follow orthostatic vital signs Bilateral vertebral artery stenosis noted on previous imaging is concerning for possible VBI Consult cardiology Remaining orders and notations as noted Resident Activity Tracking Resident Involvement: Resident Care Provided Care Provided: Adult Hospital Medicine (1) Atrial fibrillation Atrial fibrillation type: paroxysmal Qualified Code(s): I48.0 - Paroxysmal atrial fibrillation (2) Hypertension Hypertension type: essential hypertension Qualified Code(s): I10 - Essential (primary) hypertension
[2022-04-12] MEDS ORDERED: oxyCODONE/ACETAMINOPHEN 5mg/325mg TAB PO PRN (02:21)
[2022-04-12] MEDS ORDERED: LORazepam 0.5 MG TAB PO PRN (02:21)
[2022-04-12 03:01] LABS: Albumin Globulin Ratio 1.3 (0.9-2); Albumin Level 3.5 gm/dl (3.4-5.0); BUN Creatinine Ratio 27.7 (10-20); Bilirubin,Total 0.3 mg/dl (0.2-1.0); Creatinine Clr Calc Pharmacy 83.7 ml/min; Est GFR (African American) 92.9 ml/min; Est GFR (Non-African American) 80.1 ml/min; Globulin 2.6 gm/dl (2.5-4.0); Potassium 3.8 mmol/L (3.5-5.1); Total Protein 6.1 gm/dl (6.0-8.3)
[2022-04-12] MEDS ORDERED: LEVOTHYROXINE SODIUM 200 MCG TABLET PO SCH (06:30)
--- NOTE | 2022-04-12 07:06 | Electrocardiogram Report ---
Test Reason : Blood Pressure : / mmHG Vent. Rate : 111 BPM Atrial Rate : 111 BPM P-R Int : 140 ms QRS Dur : 084 ms QT Int : 340 ms P-R-T Axes : 062 041 052 degrees QTc Int : 462 ms Sinus tachycardia Otherwise normal ECG When compared with ECG of 27-OCT-2020 07:19, Vent. rate has increased BY 47 BPM QRS duration has decreased Confirmed by Jason Lara ([id number]) on 04/12/2022 7:05:54 AM Referred By: REFERRED SELF Confirmed By:Chivo Lara
[2022-04-12] MEDS: GABAPENTIN 300 MG CAP PO SCH ×2 (07:13→11:05)
[2022-04-12] MEDS: busPIRone 5 MG TAB PO SCH ×2 (07:13→11:05)
[2022-04-12] MEDS: DULoxetine HCL 30 MG CAP PO SCH ×2 (07:13→11:05)
--- NOTE | 2022-04-12 08:51 | Cardiology Consultation ---
Date of Consultation April 12, 2022 Assessment & Plan (1) Syncope: (2) SVT (supraventricular tachycardia): (3) Atrial fibrillation: Plan 1. Syncope: Unclear if he truly lost consciousness. He reports "blacking out" but did not lose postural tone. In any event, he has had severe to dizziness and presyncope that appears to be associated with a rapid heartbeat. Seemed to have similar symptoms with the SVT documented in the emergency room. It is curious that the symptoms appear to have started when he discontinued his propranolol. It would seem reasonable to reinitiate propranolol and see if his symptoms persist. In the absence of recurrent symptoms he can simply continue propranolol which also has benefits with respect to his tremor. For recurrent symptoms either escalating doses of beta-blockade or catheter based therapy would be recommended. I did describe the procedure of ablation to the patient today. 2. SVT: The telemetry strip saved in his record suggests a reentrant SVT. As noted above, he may have had some suppression with propranolol. Medication has been restarted. Recurrent symptoms despite use of propranolol can be addressed with catheter based therapy. 3. Atrial fibrillation: He has remote history of atrial fibrillation. At amira t time he was drinking heavily. He has stopped drinking and cannot recall any additional episodes of atrial fibrillation. He has been continued on systemic anticoagulation. History of Present Illness Reason for Consultation: Dizziness, SVT Requesting Physician: Dejon Attending Physician: Richmond Hinojosa MD History of Present Illness the patient is a 71-year-old gentleman with a history atrial fibrillation presents to hospital with symptoms dizziness, lightheadedness and self describe syncope. Patient is a remote history of atrial fibrillation possibly related to heavy alcohol abuse. He has been maintained on propranolol primarily for tremors. Patient has been struggling with tinnitus and felt that the propranolol may be contributing approximately 1 week ago discontinue the medication altogether. Subsequently he began to experience symptoms lightheadedness associated with "fogginess" and visual disturbance. These episodes were random in nature. However, they did tend to occur in the evening hours after he took a supplement with THC. The episodes themselves did not appear to be positional in nature. The generally lasted 10-15 minutes by report. No associated chest discomfort or breathing difficulty. He has today's episode was more severe in the sense that he felt presyncopal. He feels that he may have lost consciousness for few seconds, but did not lose postural tone and was noted to be standing and bracing himself at the time the symptoms. Presented to the emergency room for evaluation. During his emergency room evaluation he did experience similar symptoms and was noted to have an SVT. This was terminated with vagal maneuvers and resulted in resolution of his symptoms. He was admitted for observation. Patient is an otherwise active individual. He suffers from back discomfort which produces some limitation. However, he is able to use a recumbent bike for exercise several times per week. He does not report exertional symptoms such as dyspnea or chest pain with exercise. He does not report palpitations leading up to the past week. He does have blood pressure cuff at home and monitor his blood pressure on occasion but is unaware of any high heart rates. Allergies Allergy/AdvReac Type Severity Reaction Status Date / Time clindamycin Allergy Severe Rash Verified 04/11/22 22:16 Cephalosporins Allergy Rash Verified 04/11/22 22:16 levofloxacin Allergy Rash Verified 04/11/22 22:16 Home Medications Medication Instructions Recorded Confirmed Type levothyroxine 200 mcg tablet 200 mcg PO QAM 01/10/18 04/11/22 History (Synthroid) duloxetine 30 mg capsule,delayed 30 mg PO TID 04/16/18 04/11/22 History release (Cymbalta) propranolol 80 mg capsule,24 80 mg PO QAM 07/18/19 04/11/22 History hr,extended release (Inderal LA) rosuvastatin 40 mg tablet 40 mg PO QAM 10/02/20 04/11/22 History lorazepam 0.5 mg tablet 0.5 mg PO BID PRN Anxiety 10/27/20 04/11/22 History apixaban 5 mg tablet (Eliquis) 5 mg PO BID #180 tabs 12/25/20 04/11/22 Rx multivitamin 1 tab PO QAM 08/06/21 04/11/22 History buspirone 5 mg tablet 5 mg PO TID 11/12/21 04/11/22 History HEEL LIFTS 12/11/21 04/11/22 History cholecalciferol (vitamin D3) 25 25 mcg PO QAM 12/11/21 04/11/22 History mcg (1,000 unit) tablet (Vitamin D3) testosterone 20.25 mg/1.25 gram 2 pump transdermal QAM 12/11/21 04/11/22 History (1.62 %) transdermal gel pump (AndroGel) docusate sodium 100 mg capsule 100 mg PO BID #30 caps 01/01/22 04/11/22 Rx oxycodone-acetaminophen 5 mg-325 1 - 2 tab PO Q4H PRN pain #24 tabs 01/01/22 04/11/22 Rx mg tablet (Percocet) gabapentin 300 mg capsule 300 mg PO TID 04/11/22 04/11/22 History lisinopril 30 mg tablet 30 mg PO QAM 04/11/22 04/11/22 History Patient History Medical History Anxiety Asthma No symptoms x 15 years Well controlled Atrial fibrillation Dx 2 years ago Reason for Eliquis; follows with [facility]/Dr. Gutierres Cancer Skin cancer - s/p excision Chronic back pain Degenerative disc disease, lumbar Depression Essential tremor Hands - reason for propranolol History of dizziness 10/2020- CVA ruled out at [facility] evaluation > felt r/t vertigo/BPPV. Per patient, no further issues- was told possibly r/t post herpetic neuralgia. History of shingles Hyperlipidemia Hypertension Hypothyroidism Lumbar radiculopathy Malignant neoplasm of prostate s/p radical prostatectomy 2009 (no chemo or XRT) Post herpetic neuralgia Sacroiliitis Sleep apnea CPAP (compliant) Spinal cord stimulator status Chronic back pain Medtronic > OR made aware Surgical History Fusion of spine C4-C7 > limited ROM side to side and with extension per pt History of appendectomy History of cataract surgery R/L History of herniorrhaphy History of penile implant History of prostatectomy History of toe surgery B/L great toe Hx of colonoscopy S/P insertion of spinal cord stimulator Insertion of SCS (10/22/20): MAC at [facility] Family History Father Prostate cancer Brother Prostate cancer Diabetes Other No family history of adverse response to anesthesia Denies family history of Ovarian cancer Myocardial infarction Breast cancer Colorectal cancer Social History Smoking Status: Former smoker Tobacco Type: Cigarettes Age Started Using Tobacco: 10; Age Quit Using Tobacco: 33; packs per day: 1; Smoking End Date: 1979; Second Hand Exposure: No; Do You Dip or Chew Tobacco: No; Tobacco Cessation Education Requested by Patient: No Hx Alcohol Use: No ("stopped drinking one year ago") Hx Substance Use: Yes (medical marijuana) Last Used Substance: Just Prior to Arrival Last Used Substance Other:: 04/11/22 Substance Use Type Other:: medical card Preferred Language: Honduran Communication Ability: Effective Visual Impairment: No Limitations Hearing Ability: Normal Feather Sawyer Required: No Beliefs That Will Affect Care: None marital status: Current Living Situation: Spouse current occupational status: retired Other Information That Helps Us Care for You: No Feels Safe at Home: Yes Safety Concerns: Feels Safe At This Time Childhood Exposure to Second-Hand Smoke: Yes Dental Care, Regularly: Yes Physical Activity Frequency: 3-4 Times per Week Seatbelt Use: always Sunscreen Use: Yes Assistive Devices: CPAP and Glasses Review of Systems Review of Systems: Per HPI Physical Exam Physical Exam: The patient is alert and oriented. Mood and affect appeared normal. He answered all questions appropriately. HEENT: Pupils are equal and reactive to light and accommodation. Extraocular movements are intact. The sclerae are anicteric. Neuro: Cranial nerves intact Neck: Patient's neck is supple. He has palpable carotid pulses bilaterally without bruits on auscultation. There is no evidence of jugular venous distention. The thyroid is not enlarged. Lungs: Clear to auscultation bilaterally. He has good air movement without use of accessory muscles. No rales wheezes or rhonchi. Cardiac: Heart demonstrates a regular rate and rhythm. Normal S1 and S2. No murmurs on examination. Pulses: The patient has palpable radial pulses bilaterally that are equal in intensity Extremities: There was no evidence of hypoperfusion. There is no cyanosis or clubbing. There is no edema. Skin: I did not appreciate any rashes on examination today. Results & Data ([facility]) Vital Signs (Past 12 Hours) Vital Signs Temp Pulse Pulse Resp BP BP Pulse Ox 04/12/22 07:56 37.0 C 78 18 137/90 96 04/12/22 07:01 81 04/12/22 02:02 86 04/12/22 05:07 87 19 94 04/12/22 02:21 04/12/22 02:21 36.7 C 87 20 147/81 H 96 04/12/22 01:49 85 18 118/77 100 04/12/22 01:40 93 H 10 L 96 04/12/22 01:30 88 13 97 04/12/22 01:20 94 H 17 97 04/12/22 01:10 97 H 25 H 97 04/12/22 01:00 95 H 25 H 97 04/12/22 01:05 97 H 18 118/77 96 04/12/22 00:50 88 16 96 04/12/22 00:40 95 H 16 95 04/12/22 00:30 90 18 94 04/12/22 00:20 90 14 94 04/12/22 00:10 95 H 16 96 04/12/22 00:00 97 H 16 94 04/11/22 23:50 94 H 17 96 04/11/22 23:47 118/77 04/11/22 23:47 95 H 15 94 04/11/22 23:41 16 96 04/11/22 23:41 123/78 04/11/22 23:40 97 H 18 95 04/11/22 23:46 96 H 17 123/78 95 04/11/22 23:41 101 H 123/78 04/11/22 23:30 174 H 22 97 04/11/22 23:07 105 H 14 94 04/11/22 23:04 04/11/22 21:17 36.6 C 128 H 20 111/71 97 O2 Del Method FiO2 04/12/22 07:56 Room Air 04/12/22 07:01 04/12/22 02:02 04/12/22 05:07 21 04/12/22 02:21 CPAP 04/12/22 02:21 Room Air 04/12/22 01:49 Room Air 04/12/22 01:40 04/12/22 01:30 04/12/22 01:20 04/12/22 01:10 04/12/22 01:00 04/12/22 01:05 Room Air 04/12/22 00:50 04/12/22 00:40 04/12/22 00:30 04/12/22 00:20 04/12/22 00:10 04/12/22 00:00 04/11/22 23:50 04/11/22 23:47 04/11/22 23:47 04/11/22 23:41 04/11/22 23:41 04/11/22 23:40 04/11/22 23:46 Room Air 04/11/22 23:41 04/11/22 23:30 04/11/22 23:07 04/11/22 23:04 Room Air 04/11/22 21:17 Room Air Laboratory Results Abnormal Lab Results 04/11/22 04/11/22 04/11/22 21:31 21:31 21:31 WBC 8.91 RBC 5.14 Hgb 15.8 Hct 45.5 MCV 88.5 MCH 30.7 MCHC 34.7 RDW Std Deviation 40.8 RDW Coeff of Edi 12.5 Plt Count 223 MPV 9.2 L Immature Gran % (Auto) 0.3 Neut % (Auto) 68.1 Lymph % (Auto) 19.1 Oliver % (Auto) 7.9 Eos % (Auto) 3.7 Baso % (Auto) 0.9 Neut # (Auto) 6.07 Lymph # (Auto) 1.70 Oliver # (Auto) 0.70 Eos # (Auto) 0.33 Baso # (Auto) 0.08 Immature Gran # (Auto) 0.03 H PT 10.9 INR 1.0 APTT 30.7 PTT Ratio 1.1 Sodium 139 Potassium 4.1 Chloride 104 Carbon Dioxide 27 Anion Gap 8 BUN 23 Creatinine 1.23 Est Cr Clr Drug Dosing 63.9 Est GFR ( Amer) 67.1 Est GFR (Non-Af Amer) 57.9 BUN/Creatinine Ratio 18.7 Glucose 89 Calcium 9.9 Magnesium Total Bilirubin 0.4 AST 15 ALT 9 Alkaline Phosphatase 78 Troponin I High Sens 10.3 Total Protein 7.2 Albumin 4.1 Globulin 3.1 Albumin/Globulin Ratio 1.3 TSH SARS-CoV-2, RNA, NAAT 04/11/22 04/11/22 04/11/22 21:31 21:37 23:43 WBC RBC Hgb Hct MCV MCH MCHC RDW Std Deviation RDW Coeff of Edi Plt Count MPV Immature Gran % (Auto) Neut % (Auto) Lymph % (Auto) Oliver % (Auto) Eos % (Auto) Baso % (Auto) Neut # (Auto) Lymph # (Auto) Oliver # (Auto) Eos # (Auto) Baso # (Auto) Immature Gran # (Auto) PT INR APTT PTT Ratio Sodium Potassium Chloride Carbon Dioxide Anion Gap BUN Creatinine Est Cr Clr Drug Dosing Est GFR ( Amer) Est GFR (Non-Af Amer) BUN/Creatinine Ratio Glucose Calcium Magnesium 2.2 Total Bilirubin AST ALT Alkaline Phosphatase Troponin I High Sens Total Protein Albumin Globulin Albumin/Globulin Ratio TSH 3.384 SARS-CoV-2, RNA, NAAT NEGATIVE 04/12/22 04/12/22 02:29 02:29 WBC RBC Hgb Hct MCV MCH MCHC RDW Std Deviation RDW Coeff of Edi Plt Count MPV Immature Gran % (Auto) Neut % (Auto) Lymph % (Auto) Oliver % (Auto) Eos % (Auto) Baso % (Auto) Neut # (Auto) Lymph # (Auto) Oliver # (Auto) Eos # (Auto) Baso # (Auto) Immature Gran # (Auto) PT INR APTT PTT Ratio Sodium 139 Potassium 3.8 Chloride 108 H Carbon Dioxide 26 Anion Gap 5 BUN 26 H Creatinine 0.94 Est Cr Clr Drug Dosing 83.7 Est GFR ( Amer) 92.9 Est GFR (Non-Af Amer) 80.1 BUN/Creatinine Ratio 27.7 H Glucose 162 H Calcium 9.0 Magnesium Total Bilirubin 0.3 AST 11 L ALT 8 Alkaline Phosphatase 69 Troponin I High Sens 15.1 D Total Protein 6.1 Albumin 3.5 Globulin 2.6 Albumin/Globulin Ratio 1.3 TSH SARS-CoV-2, RNA, NAAT PG Care Time/CCT Total # of Minutes Spent Total Time Spent with Patient: Total time spent is greater than 50% in coordination of care (as documented) at patient's floor/unit and/or counseling patient: Coding Level of Care Code INT OBSERVATION CARE 70M LVL 3 Diagnoses Syncope R55 SVT (supraventricular tachycardia) I47.1 Atrial fibrillation I48.0 Atrial fibrillation type: paroxysmal (1) Atrial fibrillation Atrial fibrillation type: paroxysmal Qualified Code(s): I48.0 - Paroxysmal atrial fibrillation
[2022-04-12] MEDS ORDERED: APIXABAN 5 MG TABLET PO SCH (09:00)
[2022-04-12] MEDS ORDERED: [UNRECOGNIZED DRUG - OTHER] TD SCH (09:00)
[2022-04-12] MEDS ORDERED: lisinopril 10 MG TAB PO SCH (09:00)
[2022-04-12] MEDS ORDERED: PROPRANOLOL HCL LA 80 MG CAPCR PO SCH (09:00)
[2022-04-12] MEDS ORDERED: ROSUVASTATIN CALCIUM 20 MG TAB PO SCH (09:00)
[2022-04-12] MEDS ORDERED: MULTIVITAMIN TAB PO SCH (09:00)
[2022-04-12] MEDS ORDERED: DOCUSATE SODIUM 100 MG CAP PO SCH (09:00)
[2022-04-12] MEDS ORDERED: TESTOSTERONE TD SCH (09:00)
[2022-04-12] MEDS ORDERED: CHOLECALCIFEROL 1,000 UNITS 25 MCG TAB PO SCH (09:00)
--- NOTE | 2022-04-12 10:11 | XCELERA ---
[id number]
--- NOTE | 2022-04-12 11:09 | Discharge Summary ---
Date of Service April 12, 2022 Admission HPI Per Admitting Provider 71-year-old male with history of hypertension, hyperlipidemia, atrial fibrillation, alcohol use, status post insertion of spinal cord stimulator, vertigo, vertebral artery stenosis, hypogonadotropic hypogonadism who presented to [facility] for evaluation of dizziness and syncopal episode. Blayne tells me that about 6 or 7 days ago, he was looking at medications that might cause tinnitus; he has struggled with this for over a year bilaterally, but denies hearing changes or frequent vertigo. He found that propranolol can sometimes cause tinnitus. As result, he self discontinued this medication. He says that over the last couple days, he did get episodes where his head felt "fuzzy "and where he would see stars. There were no clear triggers to what brought them on (like standing up, using the commode, sudden change in position).On occasion, he would also say that his chest felt warm and that his heartbeat felt fastbut not always. No chest pain or shortness of breath. Around 4 PM today, he took a 10 mg THC edible (which she normally does for his lower backhe has been taking these for about 2 years); shortly thereafter he began experiencing the episodes aforementioned. They progressively became more intense, to a point that around 7 PM, his vision nearly completely went black and he had to grab onto something to keep his balance. During this instance, he felt like the room was spinning. He tells me he lost consciousness for maybe 2 to 3 seconds, but did not hit his head, have tongue biting, or loss of bowel/bladder control. No unilateral disturbances or sensation changes. He says that he is used THC edibles for the last 2 years to help with his low back pain; he feels that it is helped. However, he has wondered for the last several months whether or not they sometimes precipitate lightheaded episodes. He consumes approximately 10mg daily. He denies alcohol use. He denies tobacco use. His medications were reviewed and include Eliquis 5 mg twice daily, buspirone, vitamin D, docusate sodium, duloxetine 30 mg 3 times daily, gabapentin 300 mg 3 times daily, levothyroxine, lisinopril 30 mg every morning, lorazepam 0.5 mg twice daily, Percocet, propranolol 80 mg every morning, rosuvastatin 40 mg, testosterone. On arrival in the ED, patient found to have heart rate 128, with otherwise normal vital signs. Labs reviewed include largely normal CBC, normal coagulation studies, normal chemistries, negative COVID. CXR with cardiomegaly but no active processes. Shortly after arrival in the ED, patient did develop supraventricular tachycardia which terminated with use of vagal maneuvers. He subsequently converted back into normal sinus rhythm with sinus tachycardia.He was given metoprolol and 1 L of fluids. ---- This documentation was created utilizing dictation software. As such, syntax, grammatical, and word-choice errors may be present. Notes are screened prior to submission in an attempt to reduce these errors. If there are any questions or concerns, please contact the author directly for clarification. Principal Diagnosis Supraventricular tachycardia Discharge Exam Constitutional WD/WN, vitals as above Respiratory normal respiratory effort, lungs clear to auscultation Cardiovascular RRR, no murmur, no edema Gastrointestinal (Abdomen) normal bowel sounds, soft, nontender, no hepatosplenomegaly Psychiatric A+Ox3, euthymic affect Discharge Data Allergies Allergy/AdvReac Type Severity Reaction Status Date / Time clindamycin Allergy Severe Rash Verified 04/11/22 22:16 Cephalosporins Allergy Rash Verified 04/11/22 22:16 levofloxacin Allergy Rash Verified 04/11/22 22:16 Consultations 04/11/22 23:36 ED Decision to Admit Stat 04/12/22 01:01 Consult Cardiology Routine Hospital Course (1) SVT (supraventricular tachycardia): Blayne Stokes is a 71 year old male observed to [facility] on April 12, 2022 due to palpitations and lightheadedness. Suspect his symptoms were due to recently discontinuing propranolol that was suppressing his supraventricular tachycardias. SVT in the ER produced similar symptoms. He was advised to restart his propranolol. He should follow up with cardiology for recurrent symptoms as this would be likely addressed with cardiac ablation. He discontinued his propranolol due to concerns it was causing stenosis. Recommend hearing evaluation audiology referral regarding this. (2) Syncope: (3) Anxiety and depression: (4) Hypertension: (5) Chronic back pain: (6) Atrial fibrillation: (7) Essential tremor: (8) Tinnitus: Total Time Total Time Spent Total Time Spent (In Minutes): 20 Discharge Plan Discharge Items Patient Disposition: Home - Self-Care Reason For Visit: SYNCOPE Discharge Diagnosis: Supraventricular tachycardia Activity: Resume your previous activity Non-emergency contact: Polishing Pad Mounter Call non-emergency contact if: you have any medication questions and your symptoms worsen Follow-up/Referrals: Manuel Lucio [Primary Care Provider] - Diet: Heart Healthy Addtl Attending Provider Instructions: You were observed to [facility] on April 12, 2022 due to palpitations and lightheadedness. Suspect your symptoms were due to recently discontinued propranolol that was suppressing your supraventricular tachycardias. Please restart propranolol as previously prescribed. Please follow up with cardiology if recurrent symptoms as this would be likely addressed with cardiac ablation. Please follow up with your primary care provider regarding your tinnitus. Kind regards, Dr Richmond Hionjosa Pending Studies at Discharge: No Stand-Alone Forms: [facility], Smoking Cessation Medications and DC Order Prescriptions: Continued propranolol [Inderal LA] 80 mg capsule,extended release 24 hr 80 mg PO QAM Eliquis 5 mg tablet 5 mg PO BID Qty: 180 3RF multivitamin Tablet 1 tab PO QAM buspirone 5 mg tablet 5 mg PO TID levothyroxine [Synthroid] 200 mcg Tablet 200 mcg PO QAM duloxetine [Cymbalta] 30 mg Capsule,Delayed Release(Dr/Ec) 30 mg PO TID rosuvastatin 40 mg tablet 40 mg PO QAM lorazepam 0.5 mg tablet 0.5 mg PO BID PRN (Reason: Anxiety) cholecalciferol (vitamin D3) [Vitamin D3] 25 mcg (1,000 unit) Tablet 25 mcg PO QAM testosterone [AndroGel] 20.25 mg/1.25 gram (1.62 %) gel in metered-dose pump 2 pump TD QAM Rx Instructions: apply 1 pump amount over max area of EACH upper arm and shoulder (DME) HEEL LIFTS Misc See Rx Instructions .ROUTE UD Rx Instructions: Dispense 4mm heel lift, one 8mm, & one 10mm. wear 4mm heel lift in L foot x2wks, then replace w/ 8mm heel lift x2wks, then w/ 10mm heel lift docusate sodium 100 mg Capsule 100 mg PO BID Qty: 30 0RF Rx Instructions: over the counter; take while on pain medication; hold for loose stools oxycodone-acetaminophen [Percocet] 5-325 mg tablet 1 - 2 tab PO Q4H PRN (Reason: pain) Qty: 24 0RF Rx Instructions: 1 tablet for pain 1-5 2 tablets for pain 6-10 lisinopril 30 mg tablet 30 mg PO QAM gabapentin 300 mg capsule 300 mg PO TID Discharge Orders: Discharge Order (Routine); Ordered 04/12/22 Ordered By: Richmond Hinojosa Admission Data Admit Date/Time: 04/12/22 00:46 Attending Provider: Richmond Hinojosa Admit Provider: Kemar Angela Primary Care Provider: Manuel Lucio Other Providers: Bobby Ashford Christopher W. Other Interventions: Discharge Summary Assessment (RN) Last Done: 04/12/22 11:26 Coding Level of Care Code OBSERV/HOSP SAME DATE LVL 2 Diagnoses SVT (supraventricular tachycardia) I47.1 Syncope R55 Anxiety and depression F41.9; F32.9 Hypertension I10 Hypertension type: essential hypertension Chronic back pain M54.9; G89.29 Atrial fibrillation I48.0 Atrial fibrillation type: paroxysmal Essential tremor G25.0 Tinnitus H93.19
--- NOTE | 2022-04-12 17:57 | Electrocardiogram Report ---
Test Reason : Blood Pressure : / mmHG Vent. Rate : 101 BPM Atrial Rate : 101 BPM P-R Int : 140 ms QRS Dur : 088 ms QT Int : 328 ms P-R-T Axes : 039 007 -03 degrees QTc Int : 425 ms Poor data quality, interpretation may be adversely affected Sinus tachycardia with Premature supraventricular complexes Voltage criteria for left ventricular hypertrophy Nonspecific ST abnormality Abnormal ECG When compared with ECG of 11-APR-2022 23:23, (unconfirmed) Premature supraventricular complexes are now Present Vent. rate has decreased BY [address] no longer depressed in Inferior leads ST no longer depressed in Anterior leads Confirmed by Jason Lara ([id number]) on 04/12/2022 5:57:18 PM Referred By: REFERRED SELF Confirmed By:Chivo Lara
--- NOTE | 2022-04-12 18:01 | Electrocardiogram Report ---
Test Reason : Blood Pressure : / mmHG Vent. Rate : 179 BPM Atrial Rate : 182 BPM P-R Int : 000 ms QRS Dur : 082 ms QT Int : 264 ms P-R-T Axes : 000 036 -40 degrees QTc Int : 455 ms Supraventricular tachycardia Marked ST abnormality, possible inferior subendocardial injury Abnormal ECG When compared with ECG of 11-APR-2022 21:26, Vent. rate has increased BY [address] now depressed in Inferior leads ST now depressed in Anterolateral leads T wave inversion now evident in Inferior leads Confirmed by Jason Lara ([id number]) on 04/12/2022 6:01:16 PM Referred By: REFERRED SELF Confirmed By:Chivo Lara
--- NOTE | 2022-04-12 21:22 | Billing Data ---
Date of Service April 12, 2022 Coding Level of Care Code INT OBSERVATION CARE 70M LVL 3
== END 2022-04-12 12:01 | disposition home or self-care (01) ==
LOC: ED 21:15 → 2N 21:15 → SUATTDRO 04-12 00:46 → 2N 04-12 01:49

== ENCOUNTER 2023-06-22 05:08 | Inpatient (IN) ==
--- NOTE | 2023-06-03 15:56 | Anesthesiology Consultation ---
Assessment & Plan (1) Encounter for pre-operative examination: - Infectious disease screening: Per assessment on 05/26/23: No known infectious disease contacts or current infectious disease symptoms. No noted recent Covid positive test result. - S/P Left TKA (12/31/21): Grade view 1, Glidescope #4, ETT 7.5, "Atraumatic, glidescope insertion x1" + regional at [facility] - Eliquis instructions: patient made aware that for neuraxial anesthesia, Eliq uis needs to be held 72 hours/3 days prior to surgery. Patient voiced understanding/will check if okay with prescriber. - Cardiology visit (05/05/23): "The patient is stable from cardiovascular standpoint. Demonstrates excellent control of his blood pressure. He is tolerating rate control and long-term anticoagulation for his paroxysmal atrial fibrillation without difficulty. His paroxysmal SVT has been quiescent since our last visit (very propranolol sensitive). He is an acceptable cardiac risk for orthopedic surgery without further testing. Highly complex medical issues were managed and discussed today. Plan 1. Continue current medications. 2. Continue exercise program. 3. Consider home blood pressure monitoring. 4. Lipid panel per primary care team. 5. Acceptable cardiac risk for upcoming orthopedic surgery without further testing. 6. Follow-up in 1 year (patient request)." - PCP visit (06/02/23): "Preoperative assessment: Scheduled for arthroscopic surgical revision of left knee. CBC, CMP from 05/28/2023 reviewed, values were unremarkable. Physical examination was also grossly unremarkable. Patient is within acceptable medical risk for his surgery.. Hypothyroidism: TSH below normal, will decrease levothyroxine to 175 mcg daily. Repeat TSH with reflex T4 in 1 month.. Left knee pain: Swelling in the setting of prior left TKA in December 2021. Ongoing issue, patient is currently scheduled for exploratory arthroscopy in late May. Fluid aspiration of the knee in late April showed no microbial growth. Most recent radiographs of the knee September 2022 showed no lucency within the surrounding bony structure and no displacement of the orthopedic hardware.. Somatic dysfunction, multiple areas: Physiologic diaphragms in the thoracic and neck, abdominal diaphragm and pelvic diaphragm release and to facilitate lymphatic return from left knee. OMT was applied with patient permission and well tolerated. Resolution of musculoskeletal findings was noted upon reassessment with some improvement of subjective complaints. See procedure note." Chart Review Chart Review: Acceptable Risk for Surgery and Patient seen in Pre Admission Testing (05/26/23) Teaching & Discussion Pre-Anesthesia Teaching/Discussion Notes: Instructed NPO after midnight before surgery,except medications with 15 cc of water. Medication instructions provided according to the PAT guidelines. History Surgery Operation Date: 06/08/23 10:00 Proposed Procedures p Left Knee Revision Patellar Resurfacing Versus Partial Patellectomy, and Poly Exchange - Bill Rizvi MD Height/Weight Height: 6 ft 2 in Weight: 99.9 kg Allergies Allergy/AdvReac Type Severity Reaction Status Date / Time clindamycin Allergy Severe Rash, see Verified 06/02/23 15:03 notes below Cephalosporins Allergy Unknown Rash Verified 06/02/23 15:03 levofloxacin Allergy Unknown Rash Verified 06/02/23 15:03 Medications Home Medications Medication Instructions Recorded Confirmed Last Taken duloxetine 30 mg capsule,delayed 30 mg PO TID 04/16/18 06/02/23 12/31/21 04:00 release (Cymbalta) rosuvastatin 40 mg tablet 40 mg PO QAM 10/02/20 06/02/23 12/31/21 04:00 lorazepam 0.5 mg tablet 0.5 mg PO BID PRN Anxiety 10/27/20 06/02/23 12/30/21 22:00 apixaban 5 mg tablet (Eliquis) 5 mg PO BID #180 tabs 12/25/20 06/02/23 12/27/21 multivitamin 1 tab PO QAM 08/06/21 06/02/23 12/27/21 HEEL LIFTS 12/11/21 06/01/23 Unknown lisinopril 30 mg tablet 30 mg PO QAM 04/11/22 06/02/23 Unknown gabapentin 300 mg capsule 600 mg PO TID 03/26/23 06/02/23 Unknown testosterone 2 pump topical DAILY #75 grams 03/29/23 06/02/23 Unknown buspirone 5 mg tablet 5 mg PO BID 04/16/23 06/02/23 Unknown Medical Marijuana Card 1 dose UD PRN Pain 05/24/23 06/02/23 Unknown trazodone 50 mg tablet 50 - 100 mg PO HS PRN sleep 05/24/23 06/02/23 Unknown propranolol 120 mg capsule,24 120 mg PO DAILY #30 caps 05/25/23 06/02/23 Unknown hr,extended release carbidopa 25 mg-levodopa 100 mg 1 tab PO .COMPLEX 06/01/23 06/02/23 Unknown disintegrating tablet levothyroxine 175 mcg tablet 175 mcg PO DAILY #90 tabs 06/02/23 06/02/23 Unknown Past Medical History Medical History Anxiety Arthritis Asthma Bilateral tinnitus Cancer Skin cancer - s/p excision Chronic low back pain Depression Essential tremor Hands - reason for propranolol per patient Extra marker chromosomes Hip pain, bilateral History of COVID-19 1.5 years ago History of dizziness 10/2020- CVA ruled out at [facility] evaluation > felt r/t vertigo/BPPV. Per patient, no further issues- was told possibly r/t post herpetic neuralgia. History of paroxysmal supraventricular tachycardia Follows with [facility] cardio History of prediabetes History of shingles HTN (hypertension) Hyperlipidemia Hypothyroid Malignant neoplasm of prostate s/p radical prostatectomy 2009 (no chemo or XRT) Paroxysmal atrial fibrillation Follows with [facility] cardio Post herpetic neuralgia Sacroiliitis Sensorineural hearing loss (SNHL) of both ears Sleep apnea CPAP (compliant) Vertigo hx Exercise / Class Metabolic Activity II 4-5 Yardwork/Stairs/Walk up hill (one FS (no CP, no SOB)) Past Family History Family History Father Prostate cancer Brother Prostate cancer Diabetes Other No family history of adverse response to anesthesia Denies family history of Ovarian cancer Myocardial infarction Breast cancer Colorectal cancer Past Surgical History Surgical History Fusion of spine C4-C7 > limited ROM side to side and with extension per pt History of appendectomy History of cataract surgery R/L History of herniorrhaphy History of penile implant History of prostatectomy History of toe surgery B/L great toe multiple surgeries (including joint fusion) History of total left knee replacement Left TKA (12/31/21): Grade view 1, Glidescope #4, ETT 7.5, "Atraumatic, glidescope insertion x1" + regional at [facility] Hx of colonoscopy S/P insertion of spinal cord stimulator Insertion of SCS (10/22/20): MAC at [facility] Past Anesthesia History No Family Hx of Anesthesia Complications and Other (Psychotic episode x 1-2 days post-op C4-7 fusion ([place], 15+ years ago) per records) Social History Smoking Status: Former smoker Do You Dip or Chew Tobacco: No Smoking End Date: 30 years ago Hx Alcohol Use: No (No ETOH use x 2 years (~2021)/hx moderate) Alcohol type: wine Alcohol Intake Frequency Comment: denies current Hx Substance Use: Yes substance use type: marijuana (Medical marijuana card- daily use (capsules) for pain, instructed to bring card) Review of Systems Patient denies chest pain, shortness of breath, dyspnea on exertion, fever, chills, cough, wheezing, palpitations. Physical Exam Vital Signs VITALS BP 143/88 P 64 TEMP 97.9 SP02 99%RA RESP 16 PHYSICAL Decreased cervical extension range of motion. Full TMJ range of motion. TMD 4 finger breaths Mallampati Score 3 Dentition: intact, + crowns Lungs: clear throughout to auscultation Cardiac: regular rate and rhythm, no murmurs noted Spine: normal Carotid arteries: negative bruit Extremities: no LE edema Lab Results Anesthesia Preop Results Results Anesthesia Widget: WBC 6.56 K/ul (4.8-10.8) 05/28/23 Hgb 16.9 g/dl (14.0-18.0) 05/28/23 Hct 50.4 % (42.0-52.0) 05/28/23 Plt 170 K/uL (130-400) 05/28/23 Na 139 mmol/L (136-145) 05/28/23 K 4.1 mmol/L (3.5-5.1) 05/28/23 Cl 104 mmol/L (98-107) 05/28/23 CO2 28 mmol/L (21-32) 05/28/23 BUN 17 mg/dl (6-23) 05/28/23 Creat 0.92 mg/dl (0.6-1.4) 05/28/23 Glucose Level 159 mg/dl (70-99(Fasting)) H 05/28/23 PT 11.4 Seconds (9.0-12.0) 05/26/23 PTT 32 Seconds (21-31) H 05/26/23 INR 1.0 (0.9-1.1) 05/26/23 TSH 0.110 uIu/ml (0.300-4.500) L 05/28/23 Urine Color Dark Yellow 05/26/23 Urine Appearance Cloudy (Clear) A 05/26/23 Urine pH 5.5 (4.5-7.5) 05/26/23 Urine Specific [place]ancock 1.025 (1.000-1.030) 05/26/23 Urine Protein Negative (Negative) 05/26/23 Urine Glucose (UA) Negative (Negative) 05/26/23 Urine Ketones Negative (Negative) 05/26/23 Urine Blood Negative (Negative) 05/26/23 Urine Nitrite Negative (Negative) 05/26/23 Urine Bilirubin Negative (Negative) 05/26/23 Urine Urobilinogen Negative (Negative) 05/26/23 Urine Leukocyte Esterase Negative (Negative) 05/26/23 Urine WBC (Auto) 1-5 /hpf (0-5) 05/26/23 Urine RBC (Auto) 10-30 /hpf (0-4) H 05/26/23 Urine Hyaline Casts (Auto) 1-5 /lpf (0-5) 05/26/23 Urine Epithelial Cells (Auto) 10-20 /lpf (0-5) H 05/26/23 Urine Bacteria (Auto) Negative (Negative) 05/26/23 Blood Type A Negative 05/26/23 Antibody Screen NEGATIVE 05/26/23 Testing Electrocardiogram Date: 05/26/23 NSR with occasional PACs at 63bpm. "Normal ECG" Chest X-Ray Date: 05/26/23 FINDINGS: Lung volumes are normal. Lungs are clear. There is no pneumothorax or pleural effusion. Cardiac size is normal. Mediastinal contours are normal. There is no evidence for pulmonary edema. Intracanalicular leads are incidentally noted. Postoperative findings within the cervical spine are partially imaged. IMPRESSION: No acute cardiopulmonary findings. Echocardiogram Date: 04/12/22 EF 55-60%. Mild cLVH. Grade I DD. RVSP normal. LV wall motion is normal.
[2023-06-08] MEDS: LR 60ML/HR IV SCH (05:29)
[~2023-06-22 05:08] MED LIST: BUPIVACAINE 0.5 % 5 MG/1 ML PF 10ML VIAL ONE; EPINEPHrine INJ 1 MG/ML AMP ONE; LR 15ML/HR IV SCH; ROPIVACAINE 0.5% 5 MG/ML 30 ML VIAL ONE; ROPIVACAINE 0.5% HCL/PF 246 MG, Ketorolac (*for OR use only*) 30 MG, EPINEPHrine 30MG/3... INFIL SCH; TRANEXAMIC ACID 1,000 MG x 1 **TOPICAL Use Intraop TOP SCH; VANCOMYCIN HCL 1,500 MG in SODIUM CHLORIDE 0.9% 500 ML IV SCH
[2023-06-22] MEDS: LR 15ML/HR IV SCH (05:33)
[2023-06-22] MEDS: VANCOMYCIN HCL 1,500 MG in SODIUM CHLORIDE 0.9% 500 ML IV SCH ×2 (05:33→18:18)
[2023-06-22] MEDS: LR 60ML/HR IV SCH (05:34)
--- NOTE | 2023-06-22 05:55 | History & Physical Bridge Note ---
Date of Service June 22, 2023 History & Physical Bridge Note I have examined the patient, reviewed the History & Physical and in the interval since the performance of the History & Physical I have noted the following changes of clinical significance:consent and site verified. no changes noted
[2023-06-22] MEDS ORDERED: BUPIVACAINE 0.25% PF 30 ML VIAL ONE (06:16)
[2023-06-22] MEDS ORDERED: BUPIVACAINE 0.5 % 5 MG/1 ML PF 10ML VIAL ONE (06:16)
[2023-06-22] MEDS ORDERED: fentaNYL citrate PF 100 MCG/2 ML VIAL ONE (06:35)
[2023-06-22] MEDS ORDERED: MIDAZOLAM HCL 1 MG/ML 2ML VIAL ONE (06:35)
[2023-06-22] MEDS ORDERED: PROPOFOL IV EMULSION 10 MG/ML 20 ML VIAL IV ONE ×2 (06:43→08:44)
[2023-06-22] MEDS ORDERED: LIDOCAINE 2% 2 ML VIAL/AMP(20MG/ML) INFIL ONE (06:43)
[2023-06-22] MEDS ORDERED: ROCURONIUM BROMIDE 10 MG/ML 5 ML VIAL IV ONE (06:43)
[2023-06-22] MEDS ORDERED: ONDANSETRON INJ 2 MG/ML 2 ML VIAL ONE (06:43)
[2023-06-22] MEDS ORDERED: ePHEDrine sulfate 50 MG/ML AMP IV PRN (06:46)
[2023-06-22] MEDS ORDERED: ONDANSETRON INJ 2 MG/ML 2 ML VIAL IV PRN ×2 (06:46→10:11)
[2023-06-22] MEDS ORDERED: ATROPINE SULFATE 0.1 MG/ML 10ML SYR IV PRN (06:46)
[2023-06-22] MEDS ORDERED: fentaNYL citrate PF 100 MCG/2 ML VIAL IV PRN (06:46)
[2023-06-22] MEDS ORDERED: HYDROmorphone INJ 1 MG/ML SYRINGE IV PRN (06:46)
[2023-06-22] MEDS: ceFAZolin 2000MG 2,000 MG/15 ML SYR IV ONE (06:58)
[2023-06-22] MEDS ORDERED: ACETAMINOPHEN 1000 MG/100 ML IV IV ONE (07:08)
[2023-06-22] MEDS ORDERED: ePHEDrine sulfate 50 MG/5 ML SYR ONE (07:27)
[2023-06-22] MEDS ORDERED: PHENYLEPHRINE 100MCG/ML 10ML SYR IV ONE (07:27)
[2023-06-22] MEDS ORDERED: DEXAMETHASONE SOD INJ 4 MG/ML VIAL ONE (07:28)
[2023-06-22] MEDS: ORTHO JOINT ANESTHETIC ONE (07:39)
[2023-06-22] MEDS: TRANEXAMIC ACID 1,000 MG x 1 **TOPICAL Use Intraop TOP SCH (07:48)
[2023-06-22] MEDS ORDERED: SUGAMMADEX SODIUM 200 MG/2 ML VIAL IV ONE (08:00)
[2023-06-22] MEDS: ROPIVACAINE 0.5% HCL/PF 246 MG, Ketorolac (*for OR use only*) 30 MG, EPINEPHrine 30MG/3... INFIL SCH (08:05)
[2023-06-22] MEDS ORDERED: GLYCOPYRROLATE 0.2 MG/ML VIAL ONE (08:12)
--- NOTE | 2023-06-22 08:23 | Post Operative Brief Note ---
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 status post left total knee replacement preop diagnosis Postop diagnosis same preop workup for infection negative including long-term culture and Synovasure Operation Date: 06/22/23 07:00 <No data on this case meets the specified criteria> I identified the patient and participated in the time-out.: Yes Procedure Extensive synovectomy excision of patellar poly button debridement of patella partial patellectomy Operation Date: 06/22/23 07:00 <No data on this case meets the specified criteria> Surgeon Bill Rizvi MD Property Underwriter MEAGHAN/Violette Estimated Blood Loss 50 Findings Consistent with Post-Op Diagnosis AP and lateral half of patella healed fracture loose body synovitis intact femoral and tibial components probably of the tibiofemoral component normal Fluids See anesthesia report
--- NOTE | 2023-06-22 08:27 | Operative Report ---
Post Operative Report Pre & Post Diagnosis Operation Date: 06/22/23 07:00 <No data on this case meets the specified criteria> Chronic knee pain status post left total knee replacement with AVN patella chronic synovitis preoperative workup negative for infection including Synovasure and long-term culture postop diagnosis same left knee I identified the patient and participated in the time-out.: Yes Procedure Operation Date: 06/22/23 07:00 <No data on this case meets the specified criteria> Arthrotomy left knee extensive synovectomy removal of loose patellar button debridement of patella AVN partial patellectomy me exploration of the joint revealing intact femoral tibial components and tibiofemoral poly. Surgeon Bill Rizvi MD Lens Coating Technician MEAGHAN/Violette Estimated Blood Loss 50 Findings Consistent with Post-Op Diagnosis Loose patellar button synovial impingement extensive synovectomy small amount of the loose cement. Specimens Bone pathology Drains None Complications None Indications Chronic pain negative infection workup Description of Procedure After the patient was appropriately identified site verified consent verified antibiotics confirmed to be given the left lower extremity was prepped and draped use routine fashion. She mentioned that extensive discussion was occurred prior to the procedure with him and his regarding the options including the debridement and leave alone versus complete rastafarian of patella with an artificial heart including metal backing. Patella use my judgment based on what my findings were and they stated that they agreed and accepted that. To henny tourniquet time was 23 minutes. Tourniquet was inflated after exsanguination limited rubber Esmarch bandage. Midline exposure previous use result was utilized. Full-thickness flaps raised. Parapatellar arthrotomy performed. Synovial fluid was expressed. Small fragment of cement came out. I can see the patella and wrap the hand and was able to remove it from the bone without any difficulty. Release was performed to get the patella everted once this was done all of the debris underneath the button was then excised including some loose cement and some bone. The area of the AVN and fracture was healed however there was extensive deformity and overhang laterally so this was partially patellectomy placed. There was bleeding bone and 50% of the patella but not and the other half it was elected not to put anything in there in order to allow continued revascularization of the lateral half the patella to occur and to minimize any risk of additional button loosening. Close inspection of the tibial femoral components revealed no issues and the poly of the tibial femoral component was good. Once everything was debrided cleaned out it was soaked in TXA was then soaked in Betadine 3 minutes for each then irrigated and closed at 30 degrees of flexion with #2 Vicryl 2-0 Vicryl and standstill clips and internal lateral lease was performed to do the partial lateral colectomy this was closed with #1 Vicryl in a lengthened position. The patella tracked well. EBL was 50 cc or less crystalloid per anesthesia bone pathology pending. DVT prophylaxis per protocol. I attest to the content of the Intraoperative Record and any orders documented therein. Any exceptions are noted below.
--- NOTE | 2023-06-22 08:30 | Discharge Summary ---
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 left knee Discharge Data Allergies Allergy/AdvReac Type Severity Reaction Status Date / Time clindamycin Allergy Severe Rash, see Verified 06/16/23 11:34 notes below Cephalosporins Allergy Intermediate Rash Verified 06/22/23 05:48 levofloxacin Allergy Intermediate Rash Verified 06/22/23 05:48 Vaccinations None Consultations None Procedures Performed Operation Date: 06/22/23 07:00 <No data on this case meets the specified criteria> Partial patellectomy me excision patellar button extensive synovectomy left knee Ordered Studies 06/22/23 05:00 US - OR guided needle placemen Routine Hospital Course (1) Status post left knee replacement: Plan Hospital course PT restart Eliquis tomorrow morning Total Time Total Time Spent Total Time Spent (In Minutes): 5 minutes Discharge Plan Discharge Items Reason For Visit: Left Knee Patellar Avascular Necrosis Discharge Diagnosis: Same Condition on Discharge: Good Activity: Per Instructions section Lifting: Gradually increase as tolerated Bathing: Keep incision dry Sexual Activity: Wait until after follow-up appointment Exercise/Sports: Wait until after follow-up appointment Follow-up/Referrals: Terry Garcia DO [Primary Care Provider] - Addtl Attending Provider Instructions: DIET: * Resume previous diet. MEDICATIONS: * Please take your prescriptions as instructed at your pre-op appointment and/or see medication discharge instructions listed above. * If concerns develop, call your physician's office at . SPECIAL CARE INSTRUCTIONS: * Ice/Elevate as instructed. * Keep dressing clean, dry, intact. * Your surgical extremity may be discolored due to prepping agents used on the skin. A bluish-green tint is a normal variant and should not cause alarm. Call your doctor at [phone] if: * Temperature above 101 degrees * Pain not relieved by pain medicine ordered * There is increased drainage or redness from any incision * You have any unanswered questions, problems or concerns. FOLLOW UP VISIT: * If not already scheduled, please call the office at to schedule a follow-up appointment. Pending Studies at Discharge: Yes (Bone pathology) Stand-Alone Forms: My [facility] Medications and DC Order Prescriptions: No Action testosterone 20.25 mg/1.25 gram (1.62 %) gel in metered-dose pump 2 pump topical DAILY Qty: 75 2RF Rx Instructions: apply 1 pump amount over max area of EACH upper arm and shoulder propranolol 120 mg capsule,extended release 24 hr 120 mg PO DAILY Qty: 90 3RF levothyroxine 175 mcg tablet 175 mcg PO DAILY Qty: 90 3RF Eliquis 5 mg tablet 5 mg PO BID Qty: 180 3RF gabapentin 300 mg capsule 600 mg PO TID carbidopa-levodopa 25-100 mg tablet,disintegrating 1 tab PO .COMPLEX Rx Instructions: 1 tab orally PLEASE SEE ATTATCHED FOR DETAILED DIRECTIONS; multivitamin Tablet 1 tab PO QAM buspirone 5 mg tablet 5 mg PO BID duloxetine [Cymbalta] 30 mg Capsule,Delayed Release(Dr/Ec) 30 mg PO TID rosuvastatin 40 mg tablet 40 mg PO QAM lorazepam 0.5 mg tablet 0.5 mg PO BID PRN (Reason: Anxiety) (DME) HEEL LIFTS Misc See Rx Instructions .ROUTE UD Rx Instructions: Dispense 4mm heel lift, one 8mm, & one 10mm. wear 4mm heel lift in L foot x2wks, then replace w/ 8mm heel lift x2wks, then w/ 10mm heel lift lisinopril 30 mg tablet 30 mg PO QAM trazodone 50 mg tablet 50 - 100 mg PO HS PRN (Reason: sleep) Medical Marijuana Card 1 dose UD PRN (Reason: Pain) hydroxyzine HCl 10 mg Tablet 5 mg PO HS Admission Data Admit Date/Time: 06/22/23 08:50 Attending Provider: Bill Rizvi Admit Provider: Bill Rizvi Primary Care Provider: Terry Garcia
--- NOTE | 2023-06-22 08:33 | Orthopedic Progress Note ---
Date of Service June 22, 2023 Assessment & Plan (1) Status post left knee replacement: Plan Continue care pathway for arthrotomy synovectomy excision patellar button restart Eliquis 24 hours postop. Get out of bed MARTHA. contacted. Admission and Anticipated Discharge Date Admission Date: 06/22/2019 2423-hour admission Orthopedic Progress Note Tolerated total knee replacement well awakening from anesthesia well denies any chest pain shortness of breath fever chills nausea vomiting or headache. Vital signs are stable he is afebrile. Neurovascular check will be assessed when he is more awake. X-rays to be checked in recovery room. Knee Pain Chronic pain requiring surgery.
--- NOTE | 2023-06-22 08:40 | Operative Report ---
Post Operative Report Pre & Post Diagnosis Operation Date: 06/22/23 07:00 Pre-Op Diagnosis: Left Knee Patellar Avascular Necrosis Post-Op Diagnosis: Left Knee Patellar Avascular Necrosis, Loose Left Patella Button I identified the patient and participated in the time-out.: Yes Procedure Operation Date: 06/22/23 07:00 Actual Procedures p Left Knee: Extensive Synovectomy for Loose Patella Button, Partial Patellectomy(Left) - Bill Rizvi MD Surgeon CARL Rizvi MD Precast Worker MEAGHAN/Violette VEGAS Estimated Blood Loss 50 Findings Consistent with Post-Op Diagnosis see operative report Specimens see operative report Drains none Complications none Disposition Accompanied Patient To Recovery: Yes Indications This 73 year old male presented to the office with complaints of persisting anterior left knee pain. He had a previous left total knee arthroplasty. He was found to have a loose patellar button and avascular necrosis of the patella. He elected to proceed with additional surgical intervention after being educated about potential risks and outcomes. Preoperative imaging was obtained. Description of Procedure The patient was taken to the operating room where he was given general anesthesia. He was prepped and draped in the usual sterile fashion. Please see Dr. Rizvi's operative report for specifics of the procedure. I was present for the entire case from initial patient positioning through final wound closure. Assistance was provided in tissue retraction, hemostasis, debridement, and final wound closure. The patient was taken to the recovery room in satisfactory condition. I attest to the content of the Intraoperative Record and any orders documented therein. Any exceptions are noted below.
--- NOTE | 2023-06-22 08:42 | Operative Report ---
Post Operative Report Pre & Post Diagnosis Operation Date: 06/22/23 07:00 Pre-Op Diagnosis: Left Knee Patellar Avascular Necrosis Post-Op Diagnosis: Left Knee Patellar Avascular Necrosis, Loose Left Patella Button I identified the patient and participated in the time-out.: Yes Procedure Operation Date: 06/22/23 07:00 Actual Procedures p Left Knee: Extensive Synovectomy for Loose Patella Button, Partial Patellectomy(Left) - Bill Rizvi MD Surgeon Bill Rizvi MD Loss Prevention/Safety District Manager MEAGHAN/Violette VEGAS Estimated Blood Loss 50 Findings Consistent with Post-Op Diagnosis Same as postoperative diagnosis. Specimens The resected avascular portions of the Left patella. Description of Procedure Please see detailed operative note. I attest to the content of the Intraoperative Record and any orders documented therein. Any exceptions are noted below.
--- NOTE | 2023-06-22 09:21 | Anesthesiology Progress Note ---
Date of Service June 22, 2023 Anesthesia Post Procedure Vital Signs Vital Signs: Temp Pulse Resp BP Pulse Ox O2 Del Method O2 Flow Rate 06/22/23 09:15 37.2 C 68 13 139/85 99 Oxymask 1 06/22/23 09:05 72 14 135/87 99 Oxymask 3 06/22/23 08:55 71 13 135/86 100 Oxymask 3 06/22/23 08:45 74 15 122/73 95 Oxymask 3 06/22/23 08:37 37.1 C 75 16 112/72 97 Oxymask 5 06/22/23 05:55 36.8 C 71 18 146/95 H 96 Room Air Pain Intensity Left Knee: Pain Intensity: 0 Transfer of Care Handoff Completed per policy Notes Mental Status: alert / awake / arousable Patient Amnestic to Procedure: Yes Nausea / Vomiting: adequately controlled Pain: adequately controlled Airway Patency, RR, SpO2: stable & adequate BP & HR: stable & adequate Hydration State: stable & adequate Anesthetic Complications: no major complications apparent and Pt Satisfied with anesthetic care
--- NOTE | 2023-06-22 09:45 | XRay Report ---
XR knee LT 1 or 2V routine HISTORY: 73 years-old Male s/p partial patellectomy removal button COMPARISON: 09/21/2022 TECHNIQUE: 2 views of the left knee FINDINGS: Total joint arthroplasty with patellar resurfacing. Anterior midline skin bonita with expected posto perative soft tissue swelling and deep tissue air. No acute fracture, dislocation or unexpected opaqu e foreign body. IMPRESSION: Total joint arthroplasty with expected postoperative changes. ACT 112: Negative or not required by law. The above report was generated using voice recognition software. It may contain grammatical, syntax o r spelling errors. Electronically signed by: Rohit Blum M.D. 06/22/2023 9:44 AM
[2023-06-22] MEDS ORDERED: METOCLOPRAMIDE HCL INJ 5 MG/ML 2 ML VIAL IV PRN (10:11)
[2023-06-22] MEDS ORDERED: VANCOMYCIN CONSULT ACTIVE PRN (10:11)
[2023-06-22] MEDS ORDERED: HYDROmorphone INJ 0.5 MG/0.5 ML SYR IV PRN (10:11)
[2023-06-22] MEDS ORDERED: [UNRECOGNIZED DRUG - OTHER] SCH (10:11)
[2023-06-22] MEDS ORDERED: diphenhydrAMINE 50 MG/ML VIAL IV PRN (10:11)
[2023-06-22] MEDS ORDERED: traZODone HCL 50 MG TAB PO PRN (10:11)
[2023-06-22] MEDS ORDERED: TAMSULOSIN HCL 0.4 MG CAP PO PRN (10:11)
[2023-06-22] MEDS ORDERED: ALUMINUM/MAGNESIUM SUSP 30 ML UDC PO PRN (10:11)
[2023-06-22] MEDS ORDERED: NALOXONE HCL 0.4 MG/1 ML VIAL/CARP IV PRN (10:11)
[2023-06-22] MEDS ORDERED: NON-FORMULARY MEDICATION (Testosterone 20.25 mg/1.25 gram (1.62 %) gel in metered-dose pum TOP SCH (10:11)
[2023-06-22] MEDS ORDERED: bisacodyL 10 MG SUPP PR PRN (10:11)
[2023-06-22] MEDS ORDERED: LORazepam 0.5 MG TAB PO PRN (10:11)
[2023-06-22] MEDS ORDERED: MAGNESIUM HYDROXIDE SUSP 30 ML UDC PO PRN (10:11)
[2023-06-22] MEDS: SODIUM CHLORIDE 0.9% 1,000 ML IV SCH (11:33)
[2023-06-22] MEDS: GABAPENTIN 300 MG CAP PO SCH ×2 (12:02→14:11)
[2023-06-22] MEDS: lisinopril 10 MG TAB PO SCH (12:02)
[2023-06-22] MEDS: busPIRone 5 MG TAB PO SCH ×2 (12:02→20:14)
[2023-06-22] MEDS: LEVOTHYROXINE SODIUM 175 MCG TABLET PO SCH (12:02)
[2023-06-22] MEDS: DULoxetine HCL 30 MG CAP PO SCH ×2 (12:02→14:11)
[2023-06-22] MEDS: ROSUVASTATIN CALCIUM 20 MG TAB PO SCH (12:03)
[2023-06-22] MEDS: PROPRANOLOL HCL 60 MG LA CAP PO SCH (12:03)
[2023-06-22] MEDS: DOCUSATE SODIUM 100 MG CAP PO SCH (12:07)
[2023-06-22] MEDS: KETOROLAC TROMETHAMINE 15 MG/ML VIAL IV SCH (12:08)
[2023-06-22] MEDS: ACETAMINOPHEN 500 MG TAB PO SCH (14:11)
[2023-06-22] MEDS: CARBIDOPA/LEVODOPA 25/100MG TAB PO SCH (14:16)
--- NOTE | 2023-06-22 15:54 | Orthopedic Progress Note ---
Date of Service June 22, 2023 Assessment & Plan Admission and Anticipated Discharge Date Admission Date: June 22, 2023 Orthopedic Progress Note Doing well. Salone lock IV fluid.
[2023-06-22] MEDS: FERROUS GLUCONATE 324 MG TAB PO SCH (18:01)
[2023-06-22] MEDS: ASCORBIC ACID 500 MG TAB PO SCH (18:01)
[2023-06-22] MEDS: SENNA 8.6 MG TAB PO SCH (20:16)
[2023-06-22] MEDS: hydrOXYzine HCl 10 MG TAB PO SCH (20:17)
[2023-06-23] MEDS: oxyCODONE HCL IR 5 MG TAB (IMMEDIATE RELEASE) PO PRN (03:46)
[2023-06-23] MEDS: LEVOTHYROXINE SODIUM 175 MCG TABLET PO SCH (05:22)
--- NOTE | 2023-06-23 07:01 | Orthopedic Progress Note ---
Date of Service June 23, 2023 Assessment & Plan Admission and Anticipated Discharge Date Admission Date: June 22, 2023 Orthopedic Progress Note Postop day #1 status post partial patellectomy excision patellar button extensive synovectomy left knee. Had some bleeding through his dressing likely based on the fact that the posterior surface of his patella has raw bone. His wound otherwise looks good. His leg was cleaned up. Neurovascular check of his leg femoral sciatic nerve is good is good quad tone is good competent extensor mechanism easily flexes to 80 degrees. Assessment doing well pressure dressing applied will need this for at least 2 weeks. This is secondary to his chronic use of Eliquis and the status of his patella. He should come into the office on Wednesday for dressing change. He will need bulky dressing with protection of his wound. Resume his Eliquis this morning. To be discharged later today after PT OT. Discharge a month doxycycline 100 mg p.o. twice daily.
[2023-06-23 07:30] LABS: Hematocrit (blood only) 42.5 % (42.0-52.0); Hemoglobin 14.5 g/dl (14.0-18.0); Mean Corpuscular Hemoglobin 30.4 pg (25.0-34.0); Mean Corpuscular Hgb Conc 34.1 g/dL (32.0-36.0); Mean Corpuscular Volume 89.1 fL (80.0-100.0); Mean Platelet Volume 9.8 fL (9.4-12.4); Platelet Count 172 K/uL (130-400); RDW Coefficient of Variation 12.3 % (11.5-14.5); RDW Standard Deviation 39.9 fL (36.4-46.3); Red Blood Count 4.77 M/uL (4.70-6.10)
[2023-06-23 07:45] LABS: BUN Creatinine Ratio 23.8 (10-20); Est GFR (African American) 99.3 ml/min; Est GFR (Non-African American) 85.7 ml/min; Potassium 4.3 mmol/L (3.5-5.1)
[2023-06-23] MEDS: dexAMETHasone 10 MG in SYRINGE 0 ML IV SCH (07:54)
[2023-06-23] MEDS: APIXABAN 5 MG TABLET PO SCH (08:09)
[2023-06-23] MEDS: MULTIVITAMIN TAB PO SCH (08:10)
[2023-06-23] MEDS: PROPRANOLOL HCL 60 MG LA CAP PO SCH (08:10)
[2023-06-23] MEDS: lisinopril 10 MG TAB PO SCH (08:10)
[2023-06-23] MEDS: ROSUVASTATIN CALCIUM 20 MG TAB PO SCH (08:10)
--- NOTE | 2023-06-23 09:45 | Orthopedic Progress Note ---
Date of Service June 23, 2023 Assessment & Plan (1) Status post left knee replacement: Plan Reinforced dressing today. WBAT but advised to keep knee straight, continue Knee immobilizer. Reinforce dressing today. Ice PRN. PT/OT Danny has been resumed Plan for discharge to home today. Follow up as outpatient on Wednesday for dressing change as scheduled. Admission and Anticipated Discharge Date Admission Date: June 22, 2023 Subjective Doing well, has been out of bed with PT. Would like to get home soon. Pain controlled. Dressing changed by DR. Rizvi this morning. Patient states some blood thru current dressings. Physical Exam Musculoskeletal: Small area of blood thru current dressings. Re-wrapped with webril to reinforce area. Lisandro reapplied. Full ankle ROM and strength 5/5 LLE. Results & Data Vital Signs (Past 12 Hours) Vital Signs Temp Pulse Resp BP Pulse Ox O2 Del Method 06/23/23 07:28 36.5 C 65 18 128/69 97 Room Air 06/23/23 03:41 36.7 C 70 16 126/70 98 Room Air 06/22/23 23:34 36.5 C 72 16 133/75 97 Room Air Laboratory Results 06/23/23 Range/Units 06:50 WBC 13.70 H (4.8-10.8) K/ul RBC 4.77 (4.70-6.10) M/uL Hgb 14.5 (14.0-18.0) g/dl Hct 42.5 (42.0-52.0) % MCV 89.1 (80.0-100.0) fL MCH 30.4 (25.0-34.0) pg MCHC 34.1 (32.0-36.0) g/dL RDW Std Deviation 39.9 (36.4-46.3) fL RDW Coeff of Edi 12.3 (11.5-14.5) % Plt Count 172 (130-400) K/uL MPV 9.8 (9.4-12.4) fL Sodium 138 (136-145) mmol/L Potassium 4.3 (3.5-5.1) mmol/L Chloride 108 H (98-107) mmol/L Carbon Dioxide 24 (21-32) mmol/L Anion Gap 6 (3-11) BUN 20 (6-23) mg/dl Creatinine 0.84 (0.6-1.4) mg/dl Est Cr Clr Drug Dosing 96.0 ml/min Est GFR ( Amer) 99.3 ml/min Est GFR (Non-Af Amer) 85.7 ml/min BUN/Creatinine Ratio 23.8 H (10-20) Glucose 125 H (70-99(Fasting)) mg/dl Calcium 9.0 (8.6-10.3) mg/dl
== END 2023-06-23 12:22 | disposition home or self-care (01) | DRG 488 ==
LOC: ASU 05:08 → 3E 05:08 → OBSVTOIN 08:50